=== PATIENT | female | born 1975 | race Caucasian/White ===

== ENCOUNTER 2024-03-18 05:20 | Emergency (ER) | payer OTHER, SELFPAY ==
[2024-03-18 05:23] VITALS: BP 159/96; PULSE 109; RESP 16; TEMP 36.6; O2SAT 97; BMI 29.2
--- NOTE | 2024-03-18 05:35 | CRLHL7_ITS ---
For Patients: As a result of the Century Cures Act, medical imaging exams and procedure reports are released immediately into your electronic medical record. You may view this report before your referring provider. If you have questions, please contact your health care provider. INDICATION: Abdominal pain, history of IBS. COMPARISON: None. TECHNIQUE: CT of the abdomen and pelvis with intravenous contrast. Multiplanar axial, coronal, and sagittal reformats were reconstructed. Contrast: 83 mL Isovue 370. FINDINGS: Lung bases: Normal. Liver: Normal. No mass. Gallbladder and bile ducts: Normal gallbladder. No bile duct dilation. Pancreas: Normal. Spleen: Normal. Adrenal glands: Normal. Kidneys: Normal parenchyma. No cyst or solid mass. No calculi. No urinary tract dilation. Urinary bladder: Normal. Pelvis: No cyst or mass. Vessels: Normal. Bowel: No dilated or inflamed small bowel. There is a severely large stool burden. There is focal short segment wall thickening and inflammation in the mid descending colon. There is not a large rectal stool ball. No pneumatosis. No mesenteric or portal venous gas. No free air. Lymph nodes: No adenopathy. Peritoneum: No ascites. Abdominal wall: No hernia. Bones: No fractures. No focal worrisome bone lesions. IMPRESSION: Very large stool burden. Focal short-segment colitis in the mid descending colon. No discrete mass seen, but the inflamed segment is relatively narrower caliber than the adjacent segments. Consider colonoscopy after appropriate stool management. Please note that all CT scans at this facility use dose modulation, iterative reconstruction, and/or weight-based dosing when appropriate to reduce radiation dose to as low as reasonably achievable. Dictated by Teri Jain MD @ 03/18/2024 6:25:17 AM (Electronically Signed)
--- NOTE | 2024-03-18 05:44 | ED_ITS ---
HPI - Abdominal Pain General Chief Complaint: Abdominal Pain Stated Complaint: lower abdominal pain Time Seen by Provider: 03/18/24 05:30 History of Present Illness HPI narrative: Patient is a 49-year-old woman who has history of irritable bowel syndrome who presents with 2-1/2 hours of severe diffuse abdominal pain. She feels abdominal distension. She has had no fevers no chills no night sweats. She did vomit in the parking lot. She has 10/10 pain which is dull. She has otherwise been dealing with intermittent abdominal pain for years but tonight the pain is more severe than previous. She has no blood in her stool no reflux symptoms no dysuria. Related Data Home Medications ?Medication ?Instructions ?Recorded ?Confirmed levothyroxine 25 mcg capsule 25 mcg PO DAILY 03/18/24 03/18/24 Allergies Allergy/AdvReac Type Severity Reaction Status Date / Time No Known Drug Allergies Allergy Verified 03/18/24 05:26 Review of Systems Status of ROS Reports: 10 or more systems reviewed and unremarkable except as noted in History and below PFSH PFSH Social History Non-prescribed substance use: denies use Exam Narrative: Exam Narrative: EXAM GENERAL: Patient appears acutely uncomfortable. EYES: No scleral icterus. LYMPH: No supraclavicular or cervical lymphadenopathy. SKIN: Visible skin seen during exam normal or with benign process only. EXT: No dependent lower extremity pedal edema. HEART: Regular rate and rhythm with no murmurs, rubs, or gallops. LUNGS: Clear to auscultation bilaterally with no crackles or wheezes. ABD: Mildly distended with hypoactive bowel sounds. PSYCH: Good eye contact, speech is not pressured. Const: Vital Signs, click to edit/add: Vital Signs - 24 hr 03/18/24 05:23 Temperature 97.8 F Pulse Rate [Left P ulse Oximeter] 109 H Respiratory Rate 16 Blood Pressure [Ri ght Upper Arm] 159/96 H Pulse Oximetry 97 Oxygen Delivery Me thod Room Air Course Course ED Course: Patient seen and examined. CT of the abdomen pelvis CBC CMP amylase UA pending. Vital Signs Vital signs: Initial Vital Signs Temperature 97.8 F 03/18/24 05:23 Temperature Source Temporal Artery Scan 03/18/24 05:23 Pulse Rate 109 H 03/18/24 05:23 Pulse Rhythm Regular 03/18/24 05:23 Respiratory Rate 16 03/18/24 05:23 Blood Pressure 159/96 H 03/18/24 05:23 Blood Pressure Mean 117 H 03/18/24 05:23 Blood Pressure Position Sitting 03/18/24 05:23 Pulse Oximetry 97 03/18/24 05:23 Oxygen Delivery Method Room Air 03/18/24 05:23 Vital Signs Temperature 97.8 F 03/18/24 05:23 Pulse Rate 109 H 03/18/24 05:23 Respiratory Rate 16 03/18/24 05:23 Blood Pressure 159/96 H 03/18/24 05:23 Pulse Oximetry 97 03/18/24 05:23 Oxygen Delivery Method Room Air 03/18/24 05:23 Temperature 97.8 F 03/18/24 05:23 Pulse Rate 109 H 03/18/24 05:23 Respiratory Rate 16 03/18/24 05:23 Blood Pressure 159/96 H 03/18/24 05:23 Pulse Oximetry 97 03/18/24 05:23 Oxygen Delivery Method Room Air 03/18/24 05:23 MDM - Abdominal Pain MDM Narrative Medical decision making narrative: Patient is a 49-year-old woman who presents with abdominal pain. Lab workup is unremarkable CT of the abdomen pelvis shows a huge amount of stool burden. Patient has a irritable bowel chronically. I did considered the differential diagnosis of bowel obstruction ileus gastroenteritis cholecystitis is appendicitis. She does have a short segment of inflammation in her colon I did recommend outpatient colonoscopy. We treating with magnesium citrate and primary care follow-up. Lab Data Labs: Lab Results 03/18/24 Range/Units 05:40 WBC 9.20 (4.50-11.00) K/uL RBC 4.72 (4.00-5.20) m/uL Hgb 15.4 (12.0-16.0) gm/dL Hct 44.4 (33.0-51.0) % MCV 94 (80-100) fL MCH 33 (26-34) pg MCHC 35 (32-36) gm/dL RDW Coeff of Odell 12.0 (11.5-15.5) % Plt Count 297 (140-440) K/uL Neut % (Auto) 58.2 (42.0-72.0) % Lymph % (Auto) 31.0 (20-44) % Sterling % (Auto) 7.9 (0.0-11.0) % Eos % (Auto) 2.2 (0.0-7.0) % Baso % (Auto) 0.4 (0.0-3.0) % Neut # (Auto) 5.35 (1.7-7.0) K/uL Lymph # (Auto) 2.85 (0.90-2.90) K/uL Sterling # (Auto) 0.70 (0.00-0.90) K/UL Eos # (Auto) 0.20 (0.00-0.50) K/uL Baso # (Auto) 0.04 (0.00-0.30) K/uL Abs Immat Gran (auto) 0.03 (0.00-0.30) K/uL Imm/Tot Granulo (auto) 0.3 % Sodium 137 (135-149) mmol/L Potassium 4.2 (3.6-5.1) mmol/L Chloride 107 (96-114) mmol/L Carbon Dioxide 19 L (20-32) mmol/L Anion Gap 11 (7-15) mEq/L BUN 13 (5-24) mg/dL Creatinine 0.7 (0.5-1.5) mg/dL Estimated Creat Clear 85.79 Estimated GFR 107 ml/min Glucose 136 H (60-115) mg/dL Calcium 9.2 (8.4-10.6) mg/dL Total Bilirubin 0.7 (0.1-1.5) mg/dL AST 33 (12-35) U/L ALT 29 (4-35) U/L Alkaline Phosphatase 90 (40-150) U/L Total Protein 8.0 (6.0-8.3) g/dL Albumin 4.7 (3.3-5.0) g/dL Amylase 83 (18-89) U/L Discharge Plan Discharge Clinical Impression: Constipation Patient Disposition: Home, Self-Care Condition: Stable Instructions: Constipation (ED) Additional Instructions: Magnesium citrate 10 oz bottle today repeat 10 oz bottle tomorrow if not impr gloria. Follow-up with your doctor to discuss colonoscopy. Activity Level: No Restrictions Discharge Diet: Regular Prescriptions: No Action levothyroxine 25 mcg capsule 25 mcg PO DAILY Follow Up/Referrals: Provider,Not a Local [Primary Care Provider] - Stand Alone Forms: [employer] Info Instructions
[2024-03-18 06:02] LABS: Basophils Absolute Auto 0.04 K/uL (0.00-0.30); Basophils Percent Auto 0.4 % (0.0-3.0); Eosinophils Percent Auto 2.2 % (0.0-7.0); Hematocrit 44.4 % (33.0-51.0); Hemoglobin* 15.4 gm/dL (12.0-16.0); Immature Granulocytes Abs Auto 0.03 K/uL (0.00-0.30); Immature Granulocytes Pct Auto 0.3 %; Lymphocytes Absolute Auto 2.85 K/uL (0.90-2.90); Mean Corpuscular HGB Conc 35 gm/dL (32-36); Mean Corpuscular Hemoglobin 33 pg (26-34); Mean Corpuscular Volume 94 fL (80-100); Monocytes Percent Auto 7.9 % (0.0-11.0); Neutrophils Absolute Auto 5.35 K/uL (1.7-7.0); Neutrophils Percent Auto 58.2 % (42.0-72.0); Platelet Count* 297 K/uL (140-440); Red Blood Count 4.72 m/uL (4.00-5.20)
[2024-03-18 06:13] LABS: Slide Review Reflex No
[2024-03-18 06:15] LABS: Albumin* 4.7 g/dL (3.3-5.0); Chloride* 107 mmol/L (96-114); Potassium* 4.2 mmol/L (3.6-5.1); Sodium* 137 mmol/L (135-149)
[2024-03-18 06:17] LABS: Amylase* 83 U/L (18-89)
[2024-03-18 06:18] LABS: Alanine Aminotransferase* 29 U/L (4-35); Alkaline Phosphatase* 90 U/L (40-150); Anion Gap 11 mEq/L (7-15); Aspartate Amino Transferase* 33 U/L (12-35); Bilirubin Total* 0.7 mg/dL (0.1-1.5); Blood Urea Nitrogen* 13 mg/dL (5-24); Calcium* 9.2 mg/dL (8.4-10.6); Carbon Dioxide* 19 mmol/L (20-32); Creatinine* 0.7 mg/dL (0.5-1.5); Est. Creatinine Clearance* 85.79; Estimated Glomerular Filt Rate 107 ml/min; Glucose* 136 mg/dL (60-115)
--- OUTSIDE RECORDS SUMMARY | 2024-03-18 06:29 | XMS_ITS | Clinical Summary ---
[facility] Address [address] [place] [address] Care Team Providers Care Toxics Program Officer Name Role Phone Self-Referral, Patient Primary Care Provider Source Comments You are receiving this document as you are listed as the primary care provider,follow-up provider, or the patient has been referred to you for consultation.This is in compliance with the Medicare and[facility] E[facility] Incentive [facility],which states Providers who transition their patient to another setting of careor provider of care or refers their patient to another provider of care shouldprovide summary care record for each transition of care or referral. [facility] Allergies No known active allergies Medications Medication Sig Dispensed Refills Start Date End Date Status levothyroxine (AKA SYNTHROID) 25 MCG tablet Take 1 tablet by mouth daily (every 24 hours). LW Addl Instr:Iindicated for: Hypothyroidism 90 3 01/19/2010 Active fexofenadine (AKA VERITO) 180 MG tablet Take 1 tablet by mouth daily as needed. LW Addl Instr:Indicated for: Allergies 90 3 01/19/2010 Active unknown medication Indications: PN: 12/07/2010 Active COMPOUNDED PRESCRIPTION LW Addl Instr:Atropine 0.2% + Estradioil 0.05% + Testosterone 0.05 % in Acid Mantle (1:1) Apply a fingertip amount to the affected area BID. 30 1 09/02/2010 Active Social History Tobacco Use Types Packs/Day Years Used Date Smoking Tobacco: Never Sex and Gender Information Value Date Recorded Sex Assigned at Not on file Gender Identity Not on file Sexual Orientation Not on file Last Filed Vital Signs Vital Sign Reading Time Taken Comments Blood Pressure 106/72 12/07/2010 11:30 AM [employer] Pulse 64 09/02/2010 10:56 AM [employer] Temperature - - Respiratory Rate 16 09/02/2010 10:56 AM [employer] Oxygen Saturation - - Inhaled Oxygen Concentration - - Weight - - Height - - Body Mass Index - - Plan of Treatment Health Maintenance Due Date Last Done Comments Cervical Cancer Screening Due 1977 Colon Cancer Screening Plan Due 1977 Hep C Screening (Preventive Services) 1977 HIV Screening (Preventive Services) 1993 Adult Preventive Visit 1995 HepB (1) 02/25/1996 Cholesterol 2022 COVID-19 Vaccine ( season) 2023 01/07/2021, 12/05/2020 Influenza (Season Ended) 2024 020, 08/01/2019, 07/26/2018, Additional history exists Zoster/Shingles (1 of 2) 2027 DTaP/Tdap/Td (6 - Tdap) 11/26/2029 11/26/19 20, 08/01/2017, 04/13/2013, Additional history exists HepA Aged Out No longer eligi ble based on patient's age to complete this topic Hib Aged Out No longer eligi ble based on patient's age to complete this topic IPV (Polio) Aged Out No longer eligi ble based on patient's age to complete this topic MCV4 Aged Out No longer eligi ble based on patient's age to complete this topic Pneumococcal Aged Out No longer eligi ble based on patient's age to complete this topic Care Teams Toxics Program Officer Relationship Specialty Start Date End Date Self-Referral, Patient, [place] [address] PCP - General 06/13/21
--- OUTSIDE RECORDS SUMMARY | 2024-03-18 06:30 | XMS_ITS | Referral Summary ---
Author Organization [place] Address [address] [place] [address] Care Team Providers [facility] Name Role Phone Shant Bae MD Unavailable Shant Bae MD Unavailable [phone] Maxine Greene PA-C Primary Care Provider [phone] Maxine Greene PA-C Unavailable [phone] Encounters Date Type Department Care Team Description 02/14/2024 Travel 02/14/2024 12:40 PM CDT Office Visit [facility] [place] [id number] [place] [phone] Evy Melendrez PA-C Acute maxillary sinusitis, recurrence not specified (Primary Dx) from Last 3 Months Allergies Active Allergy Reactions Criticality Noted Date Comments Bee Venom Anaphylaxis High 02/17/2017 Medications Medication Sig Dispensed Refills Start Date End Date Status glycopyrrolate (GLYCATE) 2 MG tablet TAKE 1 TO 2 TABLETS BY MOUTH DAILY NEEDED FOR SWEATING 01/16/2021 Active dicyclomine (BENTYL) 20 MG tabletIndications:Ir ritable bowel syndrome with diarrhea Take 1 tablet (20 mg) by mouth 4 times daily as needed (bloating) 60 tablet 1 04/06/2022 Active Additional Information Patient not taking.Reported on 02/14/2024 traZODone (DESYREL) 50 MG tabletIndications:In somnia, unspecified type Take 1-2 tablets (50-100 mg) by mouth At Bedtime 90 tablet 1 07/06/2023 Active Additional Information Patient not taking.Reported on 02/14/2024 levothyroxine (SYNTHROID/LEVOTHROI D) 25 MCG tabletIndications:Ot her specified hypothyroidism Take 1 tablet (25 mcg) by mouth daily 90 tablet 3 07/06/2023 Active amoxicillin-clavulan ate (AUGMENTIN) 875-125 MG tabletIndications:Ac southern ute maxillary sinusitis, recurrence not specified Take 1 tablet by mouth 2 times daily for 10 days 20 tablet 02/14/2024 4 Active Problems Patient Care Coordination No te Formatting of this note is d ifferent from the original. 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 Blood type: O pos GBS: DEMOGRAPHICS: Patient contact info: [facility] [place] [phone] (home) Telephone Information: Partner's name: REFERRING PROVIDER: 1) Primary OB Provider: Name: John Brown Ph: Fax: MATERNAL CARE TEAM: Patient Care Team Relationship Specialty Notifications Start End Monica Farnsworth APRN CNP PCP - General Nurse Practitioner - Family 05/18/18 [facility] [address] Monica Farnsworth APRN CNP Assigned PCP 05/19/17 [facility] [address] CARE PLAN: 1) OB visits: q week 2) Ultrasounds - q4 week 3) surveillance - 4) consultations obtained: A) Neonatology - By phone B) Anesthesia- By phone 5) Follow up with other care team members - 6) Ancillary studies - A) MRI-12/12 DELIVERY PLAN: 1) Planned mode of delivery/details of delivery - C/S with possible Hyst 2) Gestational age at delivery - 34+ weeks 3) Scheduled delivery date - 01/03 @ 7:30 4) Notifications in labor - NICU DESIGNER ARCHITECT ONC 5) Specimen collection in labor / at delivery - Last updated: December 14, 2019 by Aimee Leyva RN Problem Noted Date Diagnosed Date Coryza 01/25/2022 Acute sinusitis with symptoms > 10 days 01/26/20 Last Assessment & Plan: Bacterial infection unlikely. Rx Antibiotics to start at 10 d per current guidelines. Discussed pathophysiology Other headache syndrome 01/25/2022 Last Assessment & Plan: Frontal [place]EN[place] 6 d, treated with antihistamines and Nyquil. No cough, fever, coryza, other Sx. Children ill 2 weeks ago. Discussed. Bacterial cause unlikely, viral infection possible. Treat as URI. S/P section 01/04/2020 Eczema 02/17/2017 Allergic to bees 08/25/2016 Obsessive-compulsive disorder 09/29/2015 Hypothyroidism 01/16/2010 Reserved for concepts with i nsufficient information to code with codable children 03/01/2008 Keloid scar 02/16/2008 Asthma 01/27/2007 Lactose intolerance 10/13/2006 Heart murmur 10/13/2006 Overview: Overview: Echo: before 1998; pt can feel it; like a pause, then a skip .(about once/wk) momentary shortness of breath, no syncope or chest pain Irritable bowel syndrome 10/11/2006 Overview: Overview: 09/12 C'scope /c bx WNL; endomysial abies pending; Last Assessment & Plan: Dx: after college, w/u ess neg /x for lactose intolerance; c'scopy normal Trials of food removals didn't change the course On no meds ; Trigger is stress; nher syndrome has no warning signs; lactose tolerance is better than it used to be; 08/13: 6 mths of incr symptoms: freqency of attacks: q couple of days; abd cramping is severe; duration x hours ( like 48 hrs) P: colonoscopy, repeat labs; bentyl prn; may need GI f/u Dysplasia of cervix, low grade (CECIL 1) Overview: Hx of LSIL/CECIL 1 in 2009 NIL 2010 NIL 2012 NIL 2014 NIL, Neg HPV 07/18/19 NIL, Neg HPV. 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 12/20/2019 01/22/2020 Overview: Added automatically from request for surgery [id number] Complete placenta previa nos or without hemorrhage, unspecified trimester 09/21/20192019 Previous section 08/28/2019 Overview: Added automatically from request for surgery [id number] Previous delivery, antepartum condition or complication 07/18/2019 01/22/2020 AMA (advanced maternal age) multigravida 35+ 9 01/22/2020 History of pre-eclampsia in prior , currently 07/18/2019 01/22/2020 Hypothyroidism affecting 07/18/2019 01/22/2020 resulting from in vitro fertilization 07/18/2019 01/22/2020 Status post 09/30/20172017 Advanced maternal age, primigravida 03/22/2017 11/11/2017 Need for Tdap vaccination 02/17/2017 Bilateral low back pain with out sciatica, unspecified chronicity 11/18/2016 02/02/2017 Immunizations Name Administration Dates Next Due COVID-19 12+ () (Pfizer) 07/14/2023 DT (PEDS <7y) 10/03/1999 HepB 04/19/2014,02/22/2014 Influenza (IIV3) PF 08/25/2016,06/12/2015,2008 Influenza Vaccine >6 months,quad, PF 01/2023,08/01/2019,07/26/2018,2016 Influenza, seasonal, injectable, PF 08/25/2016 MMR 02/22/2014 Rabies Vaccine 07/21/2005,06/30/2005,06/23/2005 TD,PF 7+ (Tenivac) 10/03/1999 TDAP Vaccine (Adacel) 11/26/2019,08/01/2017 Td (Adult), Adsorbed 10/03/1999 Tdap (Adult) Unspecified Formulation 10/03/1999 Varicella 12/20/2018,04/19/2014,02/22/2014 Social History Tobacco Use Types Packs/Day Years Used Date Smoking Tobacco: Never Passive Smoke Exposure: Never Smokeless Tobacco: Never Tobacco Cessation:Counseling Given: Not Answered Alcohol Use Standard Drinks/Week Comments Yes 0 (1 standard drink = 0.6 oz pur e alcohol) Socially Social Connection and Isolat ion Panel [NHANES] Answer Date Recorded In a typical week, how many times do you talk on the phone with family, friends, or neighbors? More than three times a week 07/06/2023 How often do you get togethe r with friends or relatives? Once a week 07/06/2023 How often do you attend chur ch or cheondoism services? 1 to 4 times per year 07/06/2023 Do you belong to any clubs o r organizations such as orthodoxy groups, unions, fraternal or athletic groups, or school groups? Yes 07/06/2023 How often do you attend meet ings of the clubs or organizations you belong to? More than 4 times per year 07/06/2023 Are you , , di vorced, , never , or living with a partner? 07/06/2023 AUDIT-C Answer Date Recorded Q1: How often do you have a drink containing alc ohol? 2-4 times a month 07/06/2023 Q2: How many drinks containi ng alcohol do you have on a typical day when you are drinking? 1 or 2 07/06/2023 Q3: How often do you have si x or more drinks on one occasion? Never 07/06/2023 PHQ-2 Answer Date Recorded PHQ-2 Score 0 11/29/2022 [facility] - Occupational Stress Questionnaire Answer Date Recorded Do you feel stress - tense, restless, nervous, or anxious, or unable to sleep at night because your mind is troubled all the time - these days? Only a little 07/06/2023 Exercise Vital Sign Answer Date Recorde d On average, how many days pe r week do you engage in moderate to strenuous exercise (like a brisk walk)? 4 days Minutes of Exercise per Session Not on file 07/06/2023 [place] Depression Scale Answer Date Recorded [place] Depression Score 0 01/05/2020 Last EPDS Self Harm Result Not on file 01/04 Adolescent Education Answer Date Record ed Getting School Help Needed Not on file 06/24 Food Insecurity Answer Date Recorded Within the past 12 months, d id you worry that your food would run out before you got money to buy more? Patient refused 2022 Within the past 12 months, d id the food you bought just not last and you didn? t have money to get more? Patient refused 07/06/2023 Housing Stability Answer Date Recorded Do you have housing? Patient refused 07/06/2023 Are you worried about losing your housing? Patie nt refused 07/06/2023 Financial Resource Strain Answer Date R ecorded Within the past 12 months, h ave you or your family members you live with been unable to get utilities (heat, electricity) when it was really needed? Patient refused 023 Transportation Needs Answer Date Record ed Within the past 12 months, h as lack of transportation kept you from medical appointments, getting your medicines, non-medical meetings or appointments, work, or from getting things that you need? Patient refused 07/06/2023 Interpersonal Safety Answer Date Record ed Do you feel physically and e motionally safe where you currently live? Yes 07/06/2023 Within the past 12 months, h ave you been hit, slapped, kicked or otherwise physically hurt by someone? No 07/06/2023 Within the past 12 months, h ave you been humiliated or emotionally abused in other ways by your partner or ex-partner? No 07/06/2023 Sex and Gender Information Value Date Recorded Sex Assigned at Not on file Gender Identity Not on file Sexual Orientation Not on file Last Filed Vital Signs Vital Sign Reading Time Taken Comments Blood Pressure 140/84 02/14/2024 12:43 PM CDT Pulse 86 02/14/2024 12:43 PM CDT Temperature 37.1 ??C (98.8 ??F) 02/14/2024 12:43 PM C DT Respiratory Rate 17 07/06/2023 9:58 AM CDT Oxygen Saturation 96% 02/14/2024 12:43 PM CDT Inhaled Oxygen Concentration - - Weight 77.1 kg (170 lb) 02/14/2024 12:43 PM CDT Height 163.8 cm (5' 4.5) 02/14/2024 12:43 PM CD T Body Mass Index 28.73 02/14/2024 12:43 PM CDT Plan of Treatment Not on file Procedures Procedure Name Priority Date/Time Associated Diagnosis Comments COMPREHENSIVE METABOLIC PANEL Routine 07/14/2023 10:29 AM CDT Routine general medical examination at a health care facility TSH WITH FREE T4 REFLEX Routine 07/14/2023 10:29 AM CDT Routine general medical examination at a [facility] care facility LIPID REFLEX TO DIRECT LDL PANEL Routine 07/14/2023 10:29 AM CDT Routine general medical examination at a [facility] care facility Screening for lipid disorders MA SCREENING BILATERAL W/ GARRET Routine 06/10/2023 1:12 PM CDT Screening mammogram, encounter for HPV HIGH RISK TYPES DNA CERVICAL Routine 07/18/2019 9:40 AM CDT Screening for human papillomavirus PAP IMAGED THIN LAYER SCREEN Routine 07/18/2019 9:36 AM CDT Screening for malignant neoplasm of cervix HIV ANTIGEN ANTIBODY COMBO Routine 07/06/2019 10:22 AM CDT care, subsequent , unspecified trimester HEPATITIS C (HIM EXTERNAL RESULT) Routine 11/29/2016 from Last 3 Months or Most Recently Relevant to Health Maintenance Results * TSH with free T4 reflex (07/14/2023 10:29 AM CDT) TSH 2.59 0.30 - 4.20 uIU/mL 07/14/2023 7:53 PM CDT [facility] Blood BLOOD SPECIMEN / Unknown Venipuncture / Unknown 07/14/2023 10:29 AM CDT 07/14/2023 10:29 AM CDT Maxine Greene PA-C LAB - BLOOD ORDERABL ES [facility] Core Lab [address] [facility], [address] [place] [phone], [facility] [phone] * (ABNORMAL) Lipid panel reflex to direct LDL Fasting (07/14/2023 10:29 AM CDT) Pathologist [facility] Cholesterol 230(H) <200 mg/dL 07/14/2023 7:53 PM CDT [facility] Triglycerides 129 <150 mg/dL 07/14/2023 7:53 PM CDT [facility] Direct Measure HDL 65 >=50 mg/dL 07/14/2023 7:53 PM CDT [facility] LDL Cholesterol Calculated 139(H) <=100 mg/dL 07/14/2023 7:53 PM CDT [facility] Non HDL Cholesterol 165(H) <130 mg/dL 07/14/2023 7:53 PM CDT [facility] Blood BLOOD SPECIMEN / Unknown Venipuncture / Unknown 07/14/2023 10:29 AM CDT 07/14/2023 10:29 AM CDT Narrative [facility] - 07/14/2023 7:53 PM CDT Cholesterol Desirable: ??<200 mg/dL Triglycerides Normal: ??Less than 150 mg/dL Borderline High: ??150-199 mg/dL High: ??200-499 mg/dL Very High: ??Greater than or equal to 500 mg/dL Direct Measure HDL Female: ??Greater than or equal to 50 mg/dL Male: ??Greater than or equal to 40 mg/dL LDL Cholesterol Desirable: ??<100mg/dL Above Desirable: ??100-129 mg/dL Borderline High: ??130-159 mg/dL High: ??160-189 mg/dL Very High: ??>= 190 mg/dL Non HDL Cholesterol Desirable: ??130 mg/dL Above Desirable: ??130-159 mg/dL Borderline High: ??160-189 mg/dL High: ??190-219 mg/dL Very High: ??Greater than or equal to 220 mg/dL Maxine Greene PA-C LAB - BLOOD ORDERABL ES [facility] Core Lab [address] [facility], [address] [place] [address], [facility] [phone] * Comprehensive metabolic panel (BMP + Alb, Alk Phos, ALT, AST, Total. Bili, TP) (07/14/2023 10:29 AMCDT) Sodium 138 135 - 145 mmol/L 07/14/2023 7:53 PM CDT [facility] Comment:Reference intervals for this test were updated on 06/28/2023 to more accurately reflect our healthy population. There may be differences in the flagging of prior results with similar values performed with this method. Interpretation of those prior results can be made in the context of the updated reference intervals. Potassium 4.5 3.4 - 5.3 mmol/L 07/14/2023 7:53 PM CDT [facility] Carbon Dioxide (CO2) 23 22 - 29 mmol/L 07/14/2023 7:53 PM CDT [facility] Anion Gap 10 7 - 15 mmol/L 07/14/2023 7:53 PM CDT [facility] Urea Nitrogen 9.7 6.0 - 20.0 mg/dL 07/14/2023 7:53 PM CDT [facility] Creatinine 0.79 0.51 - 0.95 mg/dL 07/14/2023 7:53 PM CDT [facility] GFR Estimate >90 >60 mL/min/1. 73m2 07/14/2023 7:53 PM CDT [facility] Calcium 9.5 8.6 - 10.0 mg/dL 07/14/2023 7:53 PM CDT [facility] Chloride 105 98 - 107 mmol/L 07/14/2023 7:53 PM CDT [facility] Glucose 92 70 - 99 mg/dL 07/14/2023 7:53 PM CDT [facility] Alkaline Phosphatase 56 35 - 104 U/L 07/14/2023 7:53 PM CDT [facility] AST 25 0 - 45 U/L 07/14/2023 7:53 PM CDT [facility] Comment:Reference intervals for this test were updated on 03/14/2023 to more accurately reflect our healthy population. There may be differences in the flagging of prior results with similar values performed with this method. Interpretation of those prior results can be made in the context of the updated reference intervals. ALT 21 0 - 50 U/L 07/14/2023 7:53 PM CDT [facility] Comment:Reference intervals for this test were updated on 03/14/2023 to more accurately reflect our healthy population. There may be differences in the flagging of prior results with similar values performed with this method. Interpretation of those prior results can be made in the context of the updated reference intervals. Protein Total 7.7 6.4 - 8.3 g/dL 07/14/2023 7:53 PM CDT [facility] Albumin 4.4 3.5 - 5.2 g/dL 07/14/2023 7:53 PM CDT [facility] Bilirubin Total 0.6 <=1.2 mg/dL 07/14/2023 7:53 PM CDT [facility] Blood BLOOD SPECIMEN / Unknown Venipuncture / Unknown 07/14/2023 10:29 AM CDT 07/14/2023 10:29 AM CDT Maxine Greene PA-C LAB - BLOOD ORDERABL ES [facility] Core Lab [address] [facility], [address] [id number] [phone] * MA Screen Bilateral w/Garret (06/10/2023 1:12 PM CDT) Anatomical Region Laterality Modality Breast Bilateral Mammography Impressions 06/14/2023 1:57 PM CDT IMPRESSION: ACR BI-RADS Category 1: Negative RECOMMENDED FOLLOW-UP: Annual routine screening mammogram The results and recommendations of this examination will be communicated to the patient. Wendy North MD Narrative 06/14/2023 1:57 PM CDT BILATERAL FULL FIELD DIGITAL SCREENING MAMMOGRAM WITH TOMOSYNTHESIS Performed on: 06/10/23 Compared to: 01/05/2022 Technique: ??This study was evaluated with the assistance of Computer-Aided Detection. ??Breast Tomosynthesis was used in interpretation. Findings: The breasts are almost entirely fatty. ??There is no radiographic evidence of malignancy. Aung Mast PA-C IMG MAMMOGRAPHY [facility] * HPV High Risk Types DNA Cervical (07/18/2019 9:40 AM CDT) HPV Source SurePath 07/18/2019 9:36 AM CDT [facility] HPV 16 DNA Negative NEG^Nega tive 07/24/2019 3:57 PM CDT [facility] HPV 18 DNA Negative NEG^Nega tive 07/24/2019 3:57 PM CDT [facility] Other HR HPV Negative NEG^Nega tive 07/24/2019 3:57 PM CDT [facility] Final Diagnosis This patient's sample is negative for HPV DNA. 07/24/2019 3:57 PM CDT [facility] Comment: This test was developed and its performance characteristics determined by the [facility], Molecular Diagnostics Laboratory. It has not been cleared or approved by the FDA. The laboratory is regulated under CLIA as qualified to perform high-complexity testing. This test is used for clinical purposes. It should not be regarded as investigational or for research. (Note) METHODOLOGY: ??The [employer] zay [id number] system uses automated extraction, simultaneous amplification of HPV (L1 region) and beta-globin, ?? followed by ??real time detection of fluorescent labeled HPV and beta globin using specific oligonucleotide probes . The test specifically identifies types HPV 16 DNA and HPV 18 DNA while concurrently detecting the rest of the high risk types (31, 33, 35, 39, 45, 51, 52, 56, 58, 59, 66 or 68). COMMENTS: ??This test is not intended for use as a screening device for women under age 30 with normal cervical cytology. ??Results should be correlated with cytologic and histologic findings. Close clinical followup is recommended. Specimen Description Cervical Cells 07/18/2019 9:36 AM CDT [facility] Comment:[id number] Cervical Cells CERVIX UTERI STRUCTURE / Unknown 07/18/2019 9:40 AM CDT 07/18/2019 9:43 AM CDT John Brown MD LAB - BLOOD ORDERABL ES [facility] [address] [place] [address] [address] * Pap imaged thin layer screen with HPV - recommended age 30 - 65 years (select HPV order below) (07/18/2019 9:36 AM CDT) PAP NIL COPATH Maria Elena Report Patient Name: WENDY ORTIZ MR#: [id number] Specimen #: [id number] Collected: 07/18/2019 Received: 07/19/2019 Reported: 07/23/2019 09:22 Ordering Phy(s): JOHN BROWN For improved result formatting, select 'View Enhanced Report Format' under Linked Documents section. SPECIMEN/STAIN PROCESS: Pap imaged thin layer prep screening (Surepath, FocalPoint with guided screening) ? Pap-Cyto x 1, HPV ordered x 1 SOURCE: Cervical Pap imaged thin layer prep screening (Surepath, FocalPoint with guided screening) SPECIMEN ADEQUACY: Satisfactory for evaluation. -Transformation zone component absent. CYTOLOGIC INTERPRETATION: Negative for intraepithelial lesion or malignancy Electronically signed out by: ALFA Ferrera (ASCP) CLINICAL HISTORY: Papanicolaou Test Limitations: ??Cervical cytology is a screening test with limited sensitivity; regular screening is critical for cancer prevention; Pap tests are primarily effective for the diagnosis/preventi on of squamous cell carcinoma, not adenocarcinomas or other cancers. COLLECTION SITE: Client: ??[facility] Location: [place] ([place]) The technical component of this testing was completed at [facility], with the professional component performed at the [facility], [address] [place] [address] ([phone]) COPATH Cytologic material (specimen) 07/18/2019 9:36 AM CDT 07/19/2019 9:53 AM CDT John Brown MD LAB - [facility] L SPECIMEN COPATH * HIV Antigen Antibody Combo (07/06/2019 10:22 AM CDT) HIV Antigen Antibody Combo Nonreactive NR^Nonrea ctive 07/06/2019 8:19 PM CDT [facility] Comment:HIV-1 p24 Ag & HIV-1 /HIV-2 Ab Not Detected Blood specimen (specimen) 07/06/2019 10:22 AM CDT 07/06/2019 10:27 AM CDT John Brown MD LAB - BLOOD ORDERABL ES Performing Organization Address [facility] Co de Phone Number [facility] [address] [place] [address] * Hep C - HIM (11/29/2016) Hep C HIM See Scanned Document EXTERNAL LAB Comment:Non-Reactive 11/29/2016 Narrative EXTERNAL LAB - 11/29/2016 [facility] VIS[facility] NOTES/RESULTS FOR -02/15/15-02/21/[address] [place] [address] Provider Outside LAB - HIM EXTERNAL R ESULT EXTERNAL LAB External Lab from Last 3 Months or Most Recently Relevant to Health Maintenance Care Teams [facility] Relationship Specialty Start Date End Date Maxine Greene PA-C [address] [place] [phone] PCP - General Family Medicine 07/06/23 Shant Bae MD [address] [place] [address] Otolaryngology 11/29/22 Shant Bae MD [address] [place] [address] Assigned Surgical Provider 01/08/23 Maxine Greene PA-C [address] [place] [phone] Assigned PCP 07/09/23
--- OUTSIDE RECORDS SUMMARY | 2024-03-18 06:30 | XMS_ITS | Encounter Summary ---
Author Organization [place] Address [address] [place] [address] Care Team Providers Care Angledozer Operator Name Role Phone No Ref-Primary, Physician Primary Care Provider [facility] Primary Care Provide r Monica Farnsworth ROTOR BLADE INSTALLER PLUG CUTTER Primary Care Prov ider Monica Farnsworth ROTOR BLADE INSTALLER PLUG CUTTER Unavailable + Monica Farnsworth ROTOR BLADE INSTALLER PLUG CUTTER Unavailable + John Brown MD Unavailable [phone] Iron Doyle MD Unavailable [phone] Ale Nuñez MD Unavailable + Shant Bae MD Unavailable No Ref-Primary, Physician Primary Care Provider Shant Bae MD Unavailable Iron Doyle MD Unavailable [phone] Maxine Greene PA-C Primary Care Provider Maxine Greene PA-C Unavailable [phone] Encounter Details Date Type Department Care Team (Late st Contact Info) Description 09/29/2017 [facility] [place] [address] [place] [address] Alyx Thomas MD [address] [place] [address] [address] [place], [place] [id number] Social History Tobacco Use Types Packs/Day Years Used Date Smoking Tobacco: Never Smokeless Tobacco: Never Alcohol Use Standard Drinks/Week Comments Yes 0 (1 standard drink = 0.6 oz pur e alcohol) social Comments Yes Sex and Gender Information Value Date Recorded Sex Assigned at Not on file Gender Identity Not on file Sexual Orientation Not on file documented as of this encounter Plan of Treatment Not on file documented as of this encounter Visit Diagnoses Not on filedocumented in this encounter Additional Health Concerns Assessment Noted Time PHQ-9 Depression Total Score: 4 09/13/20 17 10:16 AM CALIBRATION CHECKER documented as of this encounter Care Teams Angledozer Operator Relationship Specialty Start Date End Date No Ref-Primary, Physician PCP - General 08/01/17 03/04/18 [facility] [place] [address] PCP - General 03/05/18 05/17/18 Monica Farnsworth APRN PLUG CUTTER [place] [address] PCP - General Nurse Practitioner - Family 05/18/18 01/03/23 Monica Farnsworth APRN PLUG CUTTER [address] [place] [address] PCP - Assigned PCP 05/19/17 12/05/18 No Ref-Primary, Physician PCP - General 01/04/23 07/05/23 Maxine Greene PA-C [address] [place] [phone] PCP - General Family Medicine 07/06/23 Monica Farnsworth APRN PLUG CUTTER [address] [facility] [place] [address] Assigned PCP 05/19/17 10/17/21 John Brown MD [address] [facility] [address] [place] [address] Assigned OBGYN Provider 07/25/20 08/22/21 [place] [address] [place], [place] [id number] Assigned PCP 01/31/22 04/16/22 Ale Nuñ[place] [address] [place] [address] Assigned PCP 04/17/22 02/25/23 Shant Bae MD [address] [place] [address] [id number] Otolaryngology 11/29/22 Shant Bae MD [address] [place] [address] Assigned Surgical Provider 01/08/23 [place] [address] [place], [place] [id number] Assigned PCP 02/26/23 07/08/23 Maxine Greene PA-C [address] [place] [address] Assigned PCP 07/09/23 documented as of this encounter
--- OUTSIDE RECORDS SUMMARY | 2024-03-18 06:30 | XMS_ITS | Encounter Summary ---
Author Organization [place] Address [address] [place] [address]. [place] [address] Care Team Providers Care Baggage Inspector Name Role Phone Monica Farnsworth OVEN LABORER DEVELOPMENT PLANNER Primary Care Prov ider Monica Farnsworth APRN DEVELOPMENT PLANNER Unavailable + John Brown MD Unavailable [phone] Iron Doyle MD Unavailable [phone] Ale Nuñez MD Unavailable + Shant Bae MD Unavailable No Ref-Primary, Physician Primary Care Provider Shant Bae MD Unavailable Iron Doyle MD Unavailable [phone] Maxine Greene PA-C Primary Care Provider [phone] Maxine Greene PA-C Unavailable [phone] Encounter Details Date Type Department Care Team (Late st Contact Info) Description 01/15/[address] [facility] [place] [address] [place] [address] Julia Perez, RN Placenta accreta in third trimester (Primary Dx) Social History Tobacco Use Types Packs/Day Years Used Date Smoking Tobacco: Never Smokeless Tobacco: Never Alcohol Use Standard Drinks/Week Comments Not Currently 0 (1 standard drink = 0.6 oz pur e alcohol) social PHQ-2 Answer Date Recorded PHQ-2 Score 0 10/11/2018 [place] Depression Scale Answer Date Recorded [place] Depression Score 0 01/05/2020 Last EPDS Self Harm Result Not on file 01/04 Sex and Gender Information Value Date Recorded Sex Assigned at Not on file Gender Identity Not on file Sexual Orientation Not on file COVID-19 Exposure Response Date Recorded In the last month, have you been in contact with someone who was confirmed or suspected to have Coronavirus / COVID-19? No / Unsure 01/04/2020 5:11 AM CDT documented as of this encounter Plan of Treatment Not on file documented as of this encounter Visit Diagnoses Diagnosis Placenta accreta in third trimester- Primary Retained placenta without hemorrhage, unspecified as to episode of care documented in this encounter Additional Health Concerns Assessment Noted Time PHQ-9 Depression Total Score: 0 11/12/19 18 8:03 AM HISTORIOGRAPHY PROFESSOR documented as of this encounter Care Teams Baggage Inspector Relationship Specialty Start Date End Date Monica Farnsworth APRN DEVELOPMENT PLANNER PCP - General Nurse Practitioner - Family 05/18/18 01/03/23 No Ref-Primary, Physician PCP - General 01/04/23 07/05/23 Maxine Greene PA-C [address] [place] [address] PCP - General Family Medicine 07/06/23 Monica Farnsworth APRN DEVELOPMENT PLANNER [address] [place] [address] Assigned PCP 05/19/17 10/17/21 John Brown MD [address] [place] [address] Assigned OBGYN Provider 07/25/20 08/22/21 [place] [address] [facility] [address] Assigned PCP 01/31/22 04/16/22 Ale Nuñez [place] [address] [facility] [place] [address] Assigned PCP 04/17/22 02/25/23 Shant Bae MD [address] [place] [address] Otolaryngology 11/29/22 Shant Bae MD [address] [place] [address] Assigned Surgical Provider 01/08/23 [place] [address] [facility] [place] [address] Assigned PCP 02/26/23 07/08/23 Maxine Greene PA-C [address] [facility] [place] [address] Assigned PCP 07/09/23 documented as of this encounter
--- OUTSIDE RECORDS SUMMARY | 2024-03-18 06:30 | XMS_ITS | Encounter Summary ---
Author Organization [place] Address [address] [place] [address] Care Team Providers Care Nut Tightener Name Role Phone Shant Bae MD Unavailable Shant Bae MD Unavailable [phone] Maxine Greene PA-C Primary Care Provider Maxine Greene PA-C Unavailable [phone] Reason for Visit * Reason Comments Urgent Care Sinus discomfort x 8 d. Encounter Details Date Type Department Care Team (Late st Contact Info) Description 02/14/2024 12:40 PM CDT Office Visit [facility] [place] [address] [place] [phone] Evy Melendrez PA-C [address] [place] [address] Acute maxillary sinusitis, recurrence not specified (Primary Dx) Social History Tobacco Use Types [...] 07/06/2023 How often do you attend chur or worship services? 1 to 4 times per year 07/06/2023 Do you belong to any clubs o r organizations such as restoration groups, unions, fraternal or athletic groups, or [...] Answer Date Recorded PHQ-2 Score 0 11/29/2022 [facility] - Occupational Stress [...] Exercise per Session Not on file 07/06/2023 [place] Depression Scale Answer Date Recorded [place] Depression Score 0 01/05/2020 Last EPDS Self [...] Are you worried about losing your housing? Yazmine nt refused 07/06/2023 Financial Resource Strain Answer [...] on file documented as of this encounter Last Filed Vital Signs Vital Sign Reading Time Taken Comments Blood Pressure 140/84 02/14/2024 12:43 PM CDT Pulse 86 02/14/2024 12:43 PM CDT Temperature 37.1 ??C (98.8 ??F) 02/14/2024 12:43 PM C DT Respiratory Rate - - Oxygen Saturation 96% 02/14/2024 12:43 PM CDT Inhaled Oxygen Concentration - - Weight 77.1 kg (170 lb) 02/14/2024 12:43 PM CDT Height 163.8 cm (5' 4.5) 02/14/2024 12:43 PM CD T Body Mass Index 28.73 02/14/2024 12:43 PM CDT documented in this encounter Patient Instructions * Attachments The following attachments cannot be sent through Care Everywhere. * Sinusitis: Acute (Italian) documented in this encounter Progress Notes * Evy Melendrez PA-C - 02/14/2024 12:40 PM CDT Assessment & Plan Acute maxillary sinusitis, recurrence not specified Acute problem. Ongoing symptoms for more than a week . On exam patient is in no acute distress. Given her history of recurrent sinusitis and exam findings Augmentin is prescribed today. Tylenol/Motrin recommended as needed for headache/pain. Advised to keep monitoring symptoms. Follow-up if any worsening symptoms. Patient agrees with the plan. - amoxicillin-clavulanate (AUGMENTIN) 875-125 MG tablet Dispense: 20 tablet; Refill: 0 Return in about 1 week (around 02/21/2024) for Symptoms failing to improve. Evy Melendrez PA-C [facility] is a 48 year old female who presents to clinic today for the following health issues: Chief Complaint Patient presents with Urgent Care Sinus discomfort x 8d. HPI Sinus problem Onset of symptoms was 8 days ago. Course of illness is worsening. Severity moderate Current and Associated symptoms: facial pain/pressure, headache, discolored nasal drainage, nasal congestion No ST, no fever, No cough Treatment measures tried include Tylenol/Ibuprofen. Predisposing factors include: Hx of chronic sinusitis Last year November 2022 patient had a bad bout of sinusitis that did not improve after Augmentin, cefdinir, prednisone. Eventually saw ENT, had cultures done (Culture revealed Moraxella Catarrhalis susceptible to Augmentin, ceftriaxone, Levaquin and Bactrim). Patient was on Levaquin for a month, symptoms finally were resolved. Last treated for sinus infection 4 months ago. Review of Systems Constitutional, HEENT, cardiovascular, pulmonary, GI, , musculoskeletal, neuro, skin, endocrine and psych systems are negative, except as otherwise noted. Objective BP (!) 140/84 Pulse 86 Temp 98.8 ??F (37.1 ??C) (Tympanic) Ht 1.638 m (5' 4.5) Wt 77.1 kg (170 lb) SpO2 96% BMI 28.73 kg/m?? Physical Exam GENERAL: alert and no distress HENT: ear canals and TM's normal, nose with boggy turbinates and thick drainage, maxillary sinuses are tender to percussion, mouth without ulcers or lesions, throat is moist and pink, uvula is midline RESP: lungs clear to auscultation - no rales, rhonchi or wheezes CV: regular rate and rhythm, normal S1 S2 MS: no gross musculoskeletal defects noted, no edema SKIN: no suspicious lesions or rashes documented in this encounter Plan of Treatment Not on file documented as of this encounter Visit Diagnoses Diagnosis Acute maxillary sinusitis, recurrence not specified- Primary documented in this encounter Additional Health Concerns Assessment Noted Time PHQ-9 Depression Total Score: 1 02/15/20 3:07 PM CDT documented as of this encounter Care Teams Nut Tightener Relationship Specialty Start Date End Date Maxine Greene PA-C [address] [place] [address] PCP - General Family Medicine 07/06/23 Shant Bae MD [address] [place] [address] Otolaryngology 11/29/22 Shant Bae MD [address] [place] [address] Assigned Surgical Provider 01/08/23 Maxine Greene PA-C [address] [place] [address] Assigned PCP 07/09/23 documented as of this encounter
--- OUTSIDE RECORDS SUMMARY | 2024-03-18 06:30 | XMS_ITS | Encounter Summary ---
Author Organization [place] Address [address] [place] [address] Care Team Providers Care Financial Institution President Name Role Phone Monica Farnsworth TENTS ASSEMBLER JEWEL FLAT SURFACER Primary Care Prov ider Monica Farnsworth TENTS ASSEMBLER JEWEL FLAT SURFACER Unavailable + John Brown MD Unavailable [phone] Iron Doyle MD Unavailable [phone] Ale Nuñez MD Unavailable + Shant Bae MD Unavailable No Ref-Primary, Physician Primary Care Provider Shant Bae MD Unavailable Iron Doyle MD Unavailable [phone] Maxine Greene PA-C Primary Care Provider [phone] Maxine Greene PA-C Unavailable [phone] Reason for Visit * Reason Onset Date Comments MyChart Communication 12/20/2018 Encounter Details Date Type Department Care Team (Late st Contact Info) Description 12/20/2018 [facility] [address] [facility], [address] [place] [address] Monica Farnsworth, TENTS ASSEMBLER JEWEL FLAT SURFACER [address] [place] [address] MyChart Communication Social History Tobacco Use Types Packs/Day Years Used Date Smoking Tobacco: Never Smokeless Tobacco: Never Alcohol Use Standard Drinks/Week Comments Yes 0 (1 standard drink = 0.6 oz pur e alcohol) social PHQ-2 Answer Date Recorded PHQ-2 Score 0 10/11/2018 Sex and Gender Information Value Date Recorded Sex Assigned at Not on file Gender Identity Not on file Sexual Orientation Not on file documented as of this encounter Miscellaneous Notes * Telephone Encounter - Monica Farnsworth APRN CNP - 12/20/2018 4:38 PM CDT It is not recommended to check titers after vaccination. Monica Farnsworth CNP * Telephone Encounter - Simran Nation RN - 12/20/2018 4:21 PM CDT Spoke with the Pt regarding below. She would like to have a titer redrawn at the 4 week rao just to be safe. She would feel most comfortable with route. If you feel this is appropriate, please order titer. Thank you. Simran Nation RN -- [facility] * Telephone Encounter - Monica Farnsworth APRN CNP - 12/20/2018 3:24 PM CDT I don't see anything that talks about there being a maximum interval between the shots. The minimuminterval is 4 wks. She is right, the second dose must given at least 4 wks after the first dose andno sooner. If adults have only had one dose they should receive a second dose. I hope this clarifies this. It might be best to call and speak with her about this. Monica Farnsworth CNP * Telephone Encounter - Simran Nation RN - 12/20/2018 1:52 PM CDT PCP: Please review below. I looked on the CDC's website and I dont see a lot about the time LIMITS of the second dose, just the minimum amount of time that needs to pass before dose 2 can be given. Simran Nation RN -- [facility] documented in this encounter Plan of Treatment Not on file documented as of this encounter Visit Diagnoses Not on filedocumented in this encounter Additional Health Concerns Assessment Noted Time PHQ-9 Depression Total Score: 0 11/12/19 8:03 AM STAFFING MGR documented as of this encounter Care Teams Financial Institution President Relationship Specialty Start Date End Date Monica Farnsworth APRN JEWEL FLAT SURFACER PCP - General Nurse Practitioner - Family 05/18/18 01/03/23 No Ref-Primary, Physician PCP - General 01/04/23 07/05/23 Maxine Greene PA-C [address] [place] [phone] PCP - General Family Medicine 07/06/23 Monica Farnsworth APRN JEWEL FLAT SURFACER [address] [place] [address] Assigned PCP 05/19/17 10/17/21 John Brown MD [address] [address] Assigned OBGYN Provider 07/25/20 08/22/21 [place] [address] [place], [place] [address] Assigned PCP 01/31/22 04/16/22 Ale Nuñ[place] [address] [place] [address] Assigned PCP 04/17/22 02/25/23 Shant Bae MD [address] [place] [address] Otolaryngology 11/29/22 Shant Bae MD [address] [place] [address] Assigned Surgical Provider 01/08/23 [place] [address] [place] [address] Assigned PCP 02/26/23 07/08/23 Maxine Greene PA-C [address] [place] [address] Assigned PCP 07/09/23 documented as of this encounter
--- OUTSIDE RECORDS SUMMARY | 2024-03-18 06:30 | XMS_ITS | Encounter Summary ---
Author Organization [place] Address [address] [place] [address] Care Team Providers Care Packager And Strapper Name Role Phone Monica Farnsworth RESPIRATORY CARE PRACTITIONER OFFICE SUPPORT SPECIALIST Primary Care Prov ider Monica Farnsworth APRN OFFICE SUPPORT SPECIALIST Unavailable + John Brown MD Unavailable [phone] Iron Doyle MD Unavailable [phone] Ale Nuñez MD Unavailable + Shant Bae MD Unavailable No Ref-Primary, Physician Primary Care Provider Shant Bae MD Unavailable Iron Doyle MD Unavailable [phone] Maxine Greene PA-C Primary Care Provider [phone] Maxine Greene PA-C Unavailable [phone] Reason for Visit * Reason Onset Date Comments MyChart Communication 10/24/2020 Lab questi on Encounter Details Date Type Department Care Team (Late st Contact Info) Description 10/24/2020 [facility] [address] [place] [address] John Brown MD [address] [facility] [address] [place] [address] MyChart Communication (Lab question) Social History Tobacco Use Types Packs/Day Years Used Date Smoking Tobacco: Never Smokeless Tobacco: Never Alcohol Use Standard Drinks/Week Comments Not Currently 0 (1 standard drink = 0.6 oz pur e alcohol) social PHQ-2 Answer Date Recorded PHQ-2 Score 0 02/15/2020 [place] Depression Scale Answer Date Recorded [place] Depression Score 0 01/05/2020 Last EPDS Self [...] have Coronavirus / COVID-19? No / Unsure 10/22/2020 4:00 PM FRENCH CORD BINDER documented as of this encounter Miscellaneous Notes * Telephone Encounter - John Brown MD - 10/24/2020 10:01 AM CST Advise Pt that her TSH has gone slightly up as she noted, but because it is still well in the normal range, her current Synthroid dose should be appropriate. However, she may need a repeat TSH at hernext annual exam, which she is due for. I would recommend a PCP do her exam who can be in a better p osition to manage her Synthroid dosing on a long-term basis, and can advise regarding checking her next level and advising on target TSH. CH CORD BINDER * Telephone Encounter - Julia Horne RN - 10/24/2020 8:15 AM CST Please see catia and advise. Pharmacy selected if refilling same dose. Julia Horne RN CH CORD BINDER documented in this encounter Plan of Treatment Not on file documented as of this encounter Visit Diagnoses Diagnosis Other specified hypothyroidism Hypothyroidism affecting in first trimester documented in this encounter Additional Health Concerns Assessment Noted Time PHQ-9 Depression Total Score: 1 02/15/20 20 3:07 PM CDT documented as of this encounter Care Teams Packager And Strapper Relationship Specialty Start Date End Date Monica Farnsworth APRN OFFICE SUPPORT SPECIALIST PCP - General Nurse Practitioner - Family 05/18/18 01/03/23 No Ref-Primary, Physician PCP - General 01/04/23 07/05/23 Maxine Greene PA-C [address] [place] [address] PCP - General Family Medicine 07/06/23 Monica Farnsworth APRN OFFICE SUPPORT SPECIALIST [address] [place] [address] Assigned PCP 05/19/17 10/17/21 John Brown MD [address] [address] Assigned OBGYN Provider 07/25/20 08/22/21 [place] [address] [place], [place] [address] Assigned PCP 01/31/22 04/16/22 Ale Nuñez [place] [address] [place], [place] [address] Assigned PCP 04/17/22 02/25/23 Shant Bae MD [address] [facility] [place] [id number] Otolaryngology 11/29/22 Shant Bae MD [address] [place] [address] Assigned Surgical Provider 01/08/23 [place] [address] [place] [address] Assigned PCP 02/26/23 07/08/23 Maxine Greene PA-C [address] [place] [address] Assigned PCP 07/09/23 documented as of this encounter
--- OUTSIDE RECORDS SUMMARY | 2024-03-18 06:30 | XMS_ITS | Encounter Summary ---
Author Organization [place] Address [address] [place] [address] Care Team Providers Care Worm Raiser Name Role Phone Monica Farnsworth FIELD ASSISTANT HEAD OF SALES PROMOTION Primary Care Prov ider Monica Farnsworth APRN HEAD OF SALES PROMOTION Unavailable + John Brown MD Unavailable [phone] Iron Doyle MD Unavailable [phone] Ale Nuñez MD Unavailable + Shant Bae MD Unavailable No Ref-Primary, Physician Primary Care Provider Shant Bae MD Unavailable Iron Doyle MD Unavailable [phone] Maxine Greene PA-C Primary Care Provider [phone] Maxine Greene PA-C Unavailable [phone] Encounter Details Date Type Department Care Team (Late st Contact Info) Description 10/16/2020 [facility] Advice [address] [place] [address] Elizabeth Prasad RN Social History Tobacco Use Types Packs/Day Years Used Date Smoking Tobacco: Never Smokeless Tobacco: Never Alcohol Use Standard Drinks/Week Comments Not Currently 0 (1 standard drink = 0.6 oz pur e alcohol) social PHQ-2 Answer Date Recorded PHQ-2 Score 0 02/15/2020 [place] Depression Scale Answer Date Recorded [place] Depression Score 0 01/05/2020 Last EPDS Self [...] have Coronavirus / COVID-19? No / Unsure 10/15/2020 12:17 PM SAP FUNCTIONAL ANALYST documented as of this encounter Plan of Treatment Not on file documented as of this encounter Visit Diagnoses Not on filedocumented in this encounter Additional Health Concerns Assessment Noted Time PHQ-9 Depression Total Score: 1 02/15/20 20 3:07 PM CDT documented as of this encounter Care Teams Worm Raiser Relationship Specialty Start Date End Date Monica Farnsworth APRN HEAD OF SALES PROMOTION PCP - General Nurse Practitioner - Family 05/18/18 01/03/23 No Ref-Primary, Physician PCP - General 01/04/23 07/05/23 Maxine Greene PANereydaC [address] [place] [phone] PCP - General Family Medicine 07/06/23 Monica Farnsworth APRN HEAD OF SALES PROMOTION [address] [place] [address] Assigned PCP 05/19/17 10/17/21 John Brown MD [address] [address] Assigned OBGYN Provider 07/25/20 08/22/21 [place] [address] [place] [address] Assigned PCP 01/31/22 04/16/22 Ale Nuñez [place] [address] [place] [address] Assigned PCP 04/17/22 02/25/23 Shant Bae MD [address] [place] [address] Otolaryngology 11/29/22 Shant Bae MD [address] [place] [address] Assigned Surgical Provider 01/08/23 [place] [address] [place] [address] Assigned PCP 02/26/23 07/08/23 Maxine Greene PA-C [address] [place] [address] Assigned PCP 07/09/23 documented as of this encounter
--- OUTSIDE RECORDS SUMMARY | 2024-03-18 06:30 | XMS_ITS | Encounter Summary ---
Author Organization [facility] Address [address] [place] [address] Care Team Providers Care Child Care Attendant Name Role Phone No Ref-Primary, Physician Primary Care Provider [facility] Primary Care Provide r Monica Farnsworth CRIPPLE CHASER MILK TREATER Primary Care Prov ider Monica Farnsworth CRIPPLE CHASER MILK TREATER Unavailable + Monica Farnsworth CRIPPLE CHASER MILK TREATER Unavailable + John Brown MD Unavailable [phone] Iron Doyle MD Unavailable [phone] Ale Nuñez MD Unavailable + Shant Bae MD Unavailable No Ref-Primary, Physician Primary Care Provider Shant Bae MD Unavailable Iron Doyle MD Unavailable [phone] Maxine Greene PA-C Primary Care Provider Maixne Greene PA-C Unavailable [phone] Encounter Details Date Type Department Care Team (Late st Contact Info) Description 10/06/2017 [facility] [place] [address] [place] [phone] Alyx Thomas MD [address] [facility] [address] [place], [place] [address] Social History Tobacco Use Types Packs/Day Years Used Date Smoking Tobacco: Never Smokeless Tobacco: Never Alcohol Use Standard Drinks/Week Comments Yes 0 (1 standard drink = 0.6 oz pur e alcohol) social Sex and Gender Information Value Date Recorded Sex Assigned at Not on file Gender Identity Not on file Sexual Orientation Not on file documented as of this encounter Plan of Treatment Not on file documented as of this encounter Visit Diagnoses Not on filedocumented in this encounter Additional Health Concerns Assessment Noted Time PHQ-9 Depression Total Score: 4 09/13/20 17 10:16 AM MASH TUB COOKER OPERATOR documented as of this encounter Care Teams Child Care Attendant Relationship Specialty Start Date End Date No Ref-Primary, Physician PCP - General 08/01/17 03/04/18 [facility] CHEMICAL DEPENDENC[place] [address] PCP - General 03/05/18 05/17/18 Monica Farnsworth APRN MILK TREATER CHEMICAL [place] [address] PCP - General Nurse Practitioner - Family 05/18/18 01/03/23 Monica Farnsworth APRN MILK TREATER [address] [place] [address] PCP - Assigned PCP 05/19/17 12/05/18 No Ref-Primary, Physician PCP - General 01/04/23 07/05/23 Maxine Greene PA-C [address] [place] [phone] PCP - General Family Medicine 07/06/23 Monica Farnsworth APRN MILK TREATER [address] [place] [address] Assigned PCP 05/19/17 10/17/21 John Brown MD [address] [facility] [address] [place], [place] [address] Assigned OBGYN Provider 07/25/20 08/22/21 [place] [address] [place], [place] [id number] Assigned PCP 01/31/22 04/16/22 Ale Nuñ[place] [address] [place] [address] Assigned PCP 04/17/22 02/25/23 Shant Bae MD [address] [place] [address] Otolaryngology 11/29/22 Shant Bae MD [address] [place] [address] Assigned Surgical Provider 01/08/23 [place] [address] [place], [place] [address] Assigned PCP 02/26/23 07/08/23 Maxine Greene PA-C [address] [place] [address] Assigned PCP 07/09/23 documented as of this encounter
--- OUTSIDE RECORDS SUMMARY | 2024-03-18 06:30 | XMS_ITS | Encounter Summary ---
Author Organization [facility] Address [address] [place] [address] Care Team Providers Care Spectroscopist Name Role Phone No Ref-Primary, Physician Primary Care Provider [facility] Primary Care Provide r Monica Farnsworth PHYSICIAN OFFICE ASSISTANT WINE SALES REPRESENTATIVE Primary Care Prov ider Monica Farnsworth PHYSICIAN OFFICE ASSISTANT WINE SALES REPRESENTATIVE Unavailable + Monica Farnsworth PHYSICIAN OFFICE ASSISTANT WINE SALES REPRESENTATIVE Unavailable + John Brown MD Unavailable Iron Doyle MD Unavailable [phone] Ale Nuñez MD Unavailable + Shant Bae MD Unavailable No Ref-Primary, Physician Primary Care Provider Shant Bae MD Unavailable Iron Doyle MD Unavailable [phone] Maxine Greene PA-C Primary Care Provider Maxine Greene PA-C Unavailable [phone] Encounter Details Date Type Department Care Team (Late st Contact Info) Description 09/20/2017 [facility] [place] [address] [place] [address] Alyx Thomas MD [address] [place] [address] 700 [place], [place] [id number] Social History Tobacco Use Types Packs/Day Years [...] encounter Miscellaneous Notes * Telephone Encounter - Reyna Goodwin RN - 09/21/2017 8:12 AM CST Appt scheduled 09/28, 1:30pm. Reyna Goodwin RN-BSN AND SALARY ADMINISTRATOR documented in this encounter Plan of Treatment Not on file documented as of this encounter Visit Diagnoses Not on filedocumented in this encounter Additional Health Concerns Assessment Noted Time PHQ-9 Depression Total Score: 4 09/13/20 17 10:16 AM WAGE AND SALARY ADMINISTRATOR documented as of this encounter Care Teams Spectroscopist Relationship Specialty Start Date End Date No Ref-Primary, Physician PCP - General 08/01/17 03/04/18 [facility] [address], [place] [phone] PCP - General 03/05/18 05/17/18 Monica Farnsworth APRN WINE SALES REPRESENTATIVE [address] [address] PCP - General Nurse Practitioner - Family 05/18/18 01/03/23 Monica Farnsworth APRN WINE SALES REPRESENTATIVE [address] [facility] [place] [address] PCP - Assigned PCP 05/19/17 12/05/18 No Ref-Primary, Physician PCP - General 01/04/23 07/05/23 Maxine Greene PA-C [address] [place] [address] PCP - General Family Medicine 07/06/23 Monica Farnsworth APRN WINE SALES REPRESENTATIVE [address] [facility] [place] [address] Assigned PCP 05/19/17 10/17/21 John Brown MD [address] [facility] [address] [place] [address] Assigned OBGYN Provider 07/25/20 08/22/21 [place] [address] [facility], [place] [address] Assigned PCP 01/31/22 04/16/22 Ale Nuñ[place] [address] [place], [place] [address] Assigned PCP 04/17/22 02/25/23 Shant Bae MD [address] [place], [place] [address] Otolaryngology 11/29/22 Shant Bae MD [address] [place] [address] Assigned Surgical Provider 01/08/23 [place] [address] [place] [address] Assigned PCP 02/26/23 07/08/23 Maxine Greene PA-C [address] [place] [address] Assigned PCP 07/09/23 documented as of this encounter
--- OUTSIDE RECORDS SUMMARY | 2024-03-18 06:30 | XMS_ITS | Encounter Summary ---
Author Organization [place] Address [address] [place] [address] Care Team Providers Care Parimutuel Ticket Cashier Name Role Phone No Ref-Primary, Physician Primary Care Provider [facility] Primary Care Provide r Monica Farnsworth CERAMIC TILER SPINNERET PERSON Primary Care Prov ider Monica Farnsworth CERAMIC TILER SPINNERET PERSON Unavailable + Monica Farnsworth CERAMIC TILER SPINNERET PERSON Unavailable + John Brown MD Unavailable [phone] Iron Doyle MD Unavailable [phone] Ale Nuñez MD Unavailable + Shant Bae MD Unavailable No Ref-Primary, Physician Primary Care Provider Shant Bae MD Unavailable [phone] Iron Doyle MD Unavailable [phone] Maxine Greene PA-C Primary Care Provider Maxine Greene PA-C Unavailable [phone] Encounter Details Date Type Department Care Team (Late st Contact Info) Description 10/14/2017 [facility] [place] [address] [place] [phone] Alyx Thomas MD [address] [facility] 700 [place], [place] [address] Social History Tobacco Use Types Packs/Day Years [...] Total Score: 4 09/13/20 17 10:16 AM OBJECTS CONSERVATOR documented as of this encounter Care Teams Parimutuel Ticket Cashier Relationship Specialty Start Date End Date No Ref-Primary, Physician PCP - General 08/01/17 03/04/18 [facility] [place] [address] PCP - General 03/05/18 05/17/18 Monica Farnsworth APRN SPINNERET PERSON [place] [address] PCP - General Nurse Practitioner - Family 05/18/18 01/03/23 Monica Farnsworth APRN SPINNERET PERSON [address] [place] [address] PCP - Assigned PCP 05/19/17 12/05/18 No Ref-Primary, Physician PCP - General 01/04/23 07/05/23 Maxine Greene PA-C [address] [place] [phone] PCP - General Family Medicine 07/06/23 Monica Farnsworth APRN SPINNERET PERSON [address] [place] [address] Assigned PCP 05/19/17 10/17/21 John Brown MD [address] [facility] [address] [place], [place] [address] Assigned OBGYN Provider 07/25/20 08/22/21 [place] [address] [place], [place] [address] Assigned PCP 01/31/22 04/16/22 Ale Nuñ[place] [address] [place] [address] Assigned PCP 04/17/22 02/25/23 Shant Bae MD [address]341 [place] [address] Otolaryngology 11/29/22 Shant Bae MD [address] [place] [address] Assigned Surgical Provider 01/08/23 [place] [address] [place], [place] [address] Assigned PCP 02/26/23 07/08/23 Maxine Greene PA-C [address] [place] [address] Assigned PCP 07/09/23 documented as of this encounter
--- OUTSIDE RECORDS SUMMARY | 2024-03-18 06:30 | XMS_ITS | Encounter Summary ---
Author Organization [facility] Address [address] [place] [address] Care Team Providers Care Special Education Science Teacher Name Role Phone Monica Farnsworth DRESS CAP MAKER ASSISTED LIVING DIRECTOR Primary Care Prov ider Monica Farnsworth APRN ASSISTED LIVING DIRECTOR Unavailable + John Brown MD Unavailable [phone] Iron Doyle MD Unavailable [phone] Ale Nuñez MD Unavailable + Shant Bae MD Unavailable No Ref-Primary, Physician Primary Care Provider Shant Bae MD Unavailable Iron Doyle MD Unavailable [phone] Maxine Greene PA-C Primary Care Provider Maxine Greene PA-C Unavailable [phone] Encounter Details Date Type Department Care Team (Late st Contact Info) Description 12/31/[address] [facility] [address] [place] [address], [address] [place] [address] Wendy Sosa CMA Social History Tobacco Use Types Packs/Day Years Used Date Smoking Tobacco: Never Smokeless Tobacco: Never Alcohol Use Standard Drinks/Week Comments Not Currently 0 (1 standard drink = 0.6 oz pur e alcohol) social PHQ-2 Answer Date Recorded PHQ-2 Score 0 10/11/2018 Comments Yes Sex and Gender Information Value Date Recorded Sex Assigned at Not on file Gender Identity Not on file Sexual Orientation Not on file COVID-19 Exposure Response Date Recorded In the last month, have you been in contact with someone who was confirmed or suspected to have Coronavirus / COVID-19? No / Unsure 01/02/2020 8:55 AM CDT documented as of this encounter Plan of Treatment Not on file documented as of this encounter Visit Diagnoses Not on filedocumented in this encounter Additional Health Concerns Assessment Noted Time PHQ-9 Depression Total Score: 0 11/12/19 18 8:03 AM UTILITY BAG ASSEMBLER documented as of this encounter Care Teams Special Education Science Teacher Relationship Specialty Start Date End Date Monica Farnsworth APRN ASSISTED LIVING DIRECTOR PCP - General Nurse Practitioner - Family 05/18/18 01/03/23 No Ref-Primary, Physician PCP - General 01/04/23 07/05/23 Maxine Greene PA-C [address] [place] [phone] PCP - General Family Medicine 07/06/23 Monica Farnsworth APRN ASSISTED LIVING DIRECTOR [address] [place] [address] Assigned PCP 05/19/17 10/17/21 John Brown MD [address] [facility] 100 [place] [address] Assigned OBGYN Provider 07/25/20 08/22/21 [place] [address] [place], [place] [address] Assigned PCP 01/31/22 04/16/22 Ale Nuñ[place] [address] [place] [address] Assigned PCP 04/17/22 02/25/23 Shant Bae MD [address]341 [place] [address] Otolaryngology 11/29/22 Shant Bae MD [address] [place] [address] Assigned Surgical Provider 01/08/23 [place] [address] [place] [address] Assigned PCP 02/26/23 07/08/23 Maxine Greene PA-C [address] [place] [address] Assigned PCP 07/09/23 documented as of this encounter
--- OUTSIDE RECORDS SUMMARY | 2024-03-18 06:30 | XMS_ITS | Encounter Summary ---
Author Organization [facility] Address [address] [place] [address] Care Team Providers Care Military Science Teacher Name Role Phone Monica Farnsworth FIELD PROPERTY LOSS SPECIALIST LOAN REVIEW OFFICER Primary Care Prov ider Monica Farnsworth APRN LOAN REVIEW OFFICER Unavailable + John Brown MD Unavailable [phone] Iron Doyle MD Unavailable [phone] Ale Nuñez MD Unavailable + Shant Bae MD Unavailable No Ref-Primary, Physician Primary Care Provider Shant Bae MD Unavailable Iron Doyle MD Unavailable [phone] Maxine Greene PA-C Primary Care Provider [phone] Maxine Greene PA-C Unavailable [phone] Reason for Visit * Reason Comments Genetic Counseling AMA Ultrasound AMA Encounter Details Date Type Department Care Team (Late Contact Info) Description 09/18/2019 PRE VISIT [facility] [place] [address] [facility] [address] [place] [address] Korin Dockery, RN Genetic Counseling (AMA); Ultrasound (AMA) Social History Tobacco Use Types Packs/Day Years [...] Total Score: 0 11/12/19 18 8:03 AM BORING MACHINE SET UP OPERATOR documented as of this encounter Care Teams Military Science Teacher Relationship Specialty Start Date End Date Monica Farnsworth APRN LOAN REVIEW OFFICER PCP - General Nurse Practitioner - Family 05/18/18 01/03/23 No Ref-Primary, Physician PCP - General 01/04/23 07/05/23 Maxine Greene PA-C [address] [place] [address] PCP - General Family Medicine 07/06/23 Monica Farnsworth APRN LOAN REVIEW OFFICER [address] [place] [address] Assigned PCP 05/19/17 10/17/21 John Brown MD [address] [place] [address] Assigned OBGYN Provider 07/25/20 08/22/21 [place] [address] [place] [address] Assigned PCP 01/31/22 04/16/22 Ale Nuñ[place] [address] [place] [address] Assigned PCP 04/17/22 02/25/23 Shant Bae MD [address] [place] [address] MD Otolaryngology 11/29/22 Shant Bae MD [address] [place] [address] Assigned Surgical Provider 01/08/23 [place] [address] [place] [address] Assigned PCP 02/26/23 07/08/23 Maxine Greene PA-C [address] [place] [address] Assigned PCP 07/09/23 documented as of this encounter
--- OUTSIDE RECORDS SUMMARY | 2024-03-18 06:30 | XMS_ITS | Clinical Summary ---
Author Organization [place] Address [address] [place] [address] Care Team Providers Care Tie Bucker Name Role Phone Shant Bae MD Unavailable [phone] Shant Bae MD Unavailable Maxine Greene PA-C Primary Care Provider [phone] Maxine Greene PA-C Unavailable [phone] Allergies Active Allergy Reactions Criticality Noted Date [...] Active amoxicillin-clavulan ate (AUGMENTIN) 875-125 MG tabletIndications:Ac chris maxillary sinusitis, recurrence not specified Take 1 [...] O pos GBS: DEMOGRAPHICS: Patient contact info: [address] [facility] [phone] (home) Telephone Information: Partner's name: REFERRING PROVIDER: 1) Primary OB Provider: Name: John Brown Ph: Fax: MATERNAL CARE TEAM: Patient Care Team Relationship Specialty Notifications Start End Monica Farnsworth APRN CROSS ROLLER PCP - General Nurse Practitioner - Family 05/18/18 [facility] [address] Monica Farnsworth APRN CROSS ROLLER Assigned PCP 05/19/[address] [address] CARE PLAN: 1) OB visits: q week [...] 7:30 4) Notifications in labor - NICU FAST BRIM POUNCER ONC 5) Specimen collection in labor / at delivery - Last updated: December 14, 2019 by Aimee Leyva RN Problem Noted Date Diagnosed Date Coryza 01/25/2022 Acute sinusitis with symptoms > 10 days 01/26/20 22 Last Assessment & Plan: Bacterial infection unlikely. [...] Hx of LSIL/CECIL 1 in 2009 NIL 2011 NIL 2013 NIL 2014 NIL, Neg HPV 07/18/19 NIL, Neg HPV. 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 07/18/2019 01/22/2020 Status post 09/30/20172017 Advanced maternal age, primigravida 03/22/2017 11/11/2017 Need for Tdap vaccination 02/17/2017 Bilateral low back pain with out sciatica, unspecified chronicity 11/18/2016 02/02/2017 Encounters Date Type Department Care Team Description 02/14/2024 12:40 PM CDT Office Visit [facility] [place] [id number] [place] [phone] Evy Melendrez PA-C Acute maxillary sinusitis, recurrence not specified (Primary Dx) 02/14/2024 Travel from Last 3 Months Immunizations Name Administration Dates Next Due COVID-19 12+ () (Pfizer) 07/14/2023 DT (PEDS <7y) 10/03/1999 HepB 04/19/2014,02/22/2014 Influenza (IIV3) PF 08/25/2016,06/12/2015,2008 Influenza Vaccine >6 months,quad, PF 01/2023,08/01/2019,07/26/2018,2016 Influenza, seasonal, injectable, PF 08/25/2016 MMR 02/22/2014 Rabies Vaccine 07/21/2005,06/30/2005,06/23/2005 TD,PF 7+ (Tenivac) 10/03/1999 TDAP Vaccine (Adacel) 11/26/2019,08/01/2017 Td (Adult), Adsorbed 10/03/1999 Tdap (Adult) Unspecified Formulation 10/03/1999 Varicella 12/20/2018,04/19/2014,02/22/2014 Family History Medical History Relation Comments Hypertension Maternal Grandmother GERD Mother Hyperlipidemia Mother Lung Cancer Paternal Grandmother smoker Depression Sister Relation Status Comments Father Alive Maternal Grandfather Maternal Grandmother Mother Alive Paternal Grandmother Paternal Half-Sister 1 Alive Paternal Half-Sister 2 Alive Sister Alive Social History Tobacco Use Types Packs/Day Years [...] often do you attend chur ch or bahai services? 1 to 4 times per year 07/06/2023 Do you belong to any clubs o r organizations such as yarsani groups, unions, fraternal or athletic groups, or [...] Answer Date Recorded PHQ-2 Score 0 11/29/2022 [facility] - Occupational Stress [...] Exercise per Session Not on file 07/06/2023 [place] Depression Scale Answer Date Recorded [place] Depression Score 0 01/05/2020 Last EPDS Self [...] 02/14/2024 12:43 PM CDT Plan of Treatment Health Maintenance Due Date Last Done Comments CT COLONOGRAPHY 1977 FIT 1977 FLEX SIG 1977 sDNA (Cologuard) 1977 COLONOSCOPY 1987 COLORECTAL CANCER SCREENING 1987 HEPATITIS B IMMUNIZATION (3 of 3 - 19+ 3-dose series) 08/25/2014 04/19/2014, 02/22/2014 ASTHMA ACTION PLAN 11/30/2018 11/30/2017, 11/30/2017 PHQ-2 (once per calendar year) 2023 11/29/2022, 04/06/2022, 01/25/2022, Additional history exists ASTHMA CONTROL TEST 01/05/2024 07/06/2023, 11/29/2022, 01/25/2022, Additional history exists ANNUAL REVIEW OF HM ORDERS 07/06/202407/06, 01/25/2022, 01/25/2022 YEARLY PREVENTIVE VISIT 07/06/2024 07/06/20, 04/06/2022, 06/12/2015, Additional history exists TSH W/FREE T4 REFLEX 07/14/2024 07/14/2023, 04/06/2022, 04/20/2021, Additional history exists HPV TEST 07/18/2024 07/18/2019, 04/19/2014 PAP 07/18/2024 07/18/2019, 07/1 05/2014, 04/19/2014 MAMMO SCREENING 06/10/2025 06/10/2023, 01/05/2022 GLUCOSE 07/14/2026 07/14/2023, 0701/2022, 01/04/2020 ADVANCE CARE PLANNING 04/06/2027 04/06/2022 LIPID 07/14/2028 07/14/2023, 04/06/2022 DTAP/TDAP/TD IMMUNIZATION (4 - Td or Tdap) 11/26/2029 11/26/2019, 08/01/2017, 10/03/1999, Additional history exists HEPATITIS C SCREENING Completed 11/29/2016, 015 HIV SCREENING Completed 07/06/2019, 02/17/2017 INFLUENZA VACCINE Completed 07/06/2023, , 07/26/2021, Additional history exists COVID-19 Vaccine Completed 07/14/2023, 07/2022, 08/29/2021, Additional history exists HPV IMMUNIZATION Aged Out No longer e ligible based on patient's age to complete this topic IPV IMMUNIZATION Aged Out No longer e ligible based on patient's age to complete this topic MENINGITIS IMMUNIZATION Aged Out No l onger eligible based on patient's age to complete this topic Pneumococcal Vaccine: Pediatrics (0 to 5 Years) and At-Risk Patients (6 to 64 Years) Discontinued RSV MONOCLONAL ANTIBODY Aged Out No l onger eligible based on patient's age to complete this topic Procedures Procedure Name Priority Date/Time Associated Diagnosis Comments COMPREHENSIVE METABOLIC PANEL Routine 07/14/2023 10:29 AM CDT Routine general medical examination at a health care facility TSH WITH FREE T4 REFLEX Routine 07/14/2023 10:29 AM CDT Routine general medical examination at a health care facility LIPID REFLEX TO DIRECT LDL PANEL Routine 07/14/2023 10:29 AM CDT Routine general medical examination at a health care facility Screening for lipid disorders MA [...] LAB - BLOOD ORDERABL ES [facility] [address] [facility], [address] [place] [address], [facility] [phone] * (ABNORMAL) Lipid panel reflex to direct LDL Fasting (07/14/2023 10:29 AM CDT) Cholesterol 230(H) <200 mg/dL 07/14/2023 7:53 PM [...] LAB - BLOOD ORDERABL ES [facility] [address] [facility], [address] [place] [address], [facility] [phone] * Comprehensive metabolic panel (BMP + Alb, Alk Phos, ALT, AST, Total. Bili, TP) (07/14/2023 10:29 AMCDT) [facility] [address] Sodium 138 135 - 145 mmol/L 07/14/2023 [...] LAB - BLOOD ORDERABL ES [facility] [address] [facility] [address] [facility], [address] [place] [address], [facility] [phone] * MA Screen Bilateral w/Garret (06/10/2023 1:12 [...] of malignancy. Aung Mast PA-C IMG MAMMOGRAPHY ORDE ATUL * HPV High Risk Types DNA Cervical (07/18/2019 9:40 AM CDT) HPV Source [facility] 07/18/2019 9:36 AM CDT [facility] HPV 16 DNA Negative NEG^Nega tive 07/24/2019 3:57 PM CDT [facility] HPV 18 DNA Negative NEG^Nega tive 07/24/2019 3:57 PM CDT [facility] Other HR HPV Negative NEG^Nega tive 07/24/2019 3:57 PM CDT [facility] Final Diagnosis This patient's sample is negative for HPV DNA. 07/24/2019 3:57 PM CDT [facility] Comment: This test was developed and its performance characteristics determined by the [facility]. It has not been [...] Description Cervical Cells 07/18/2019 9:36 AM CDT [facility] Comment:[id number] Cervical Cells CERVIX UTERI STRUCTURE / Unknown 07/18/2019 9:40 AM CDT 07/18/2019 9:43 AM CDT John Brown MD LAB - BLOOD ORDERABL ES [facility] [address] [place], [place] [address] [place], [place] [id number] * Pap imaged thin layer screen with HPV - recommended age 30 - 65 years (select HPV order below) (07/18/2019 9:36 AM CDT) PAP NIL COPATH Maria Elena Report Patient Name: WENDY ORTIZ MR#: [id number] Specimen #: [id number] Collected: 07/18/2019 Received: 07/19/2019 Reported: 07/23/2019 09:22 [...] adenocarcinomas or other cancers. COLLECTION SITE: Client: ??[facility] Location: [facility] (R) The technical component of this testing was completed at the [facility], with the professional component performed at the [facility], [address] [place] [phone] ([phone]) COPATH Cytologic material (specimen) 07/18/2019 9:36 AM CDT 07/19/2019 9:53 AM CDT John Brown MD LAB - OPTIME CLINICA L SPECIMEN Performing Organization Address City/[facility]/ZIP Co de Phone Number COPATH * HIV Antigen Antibody Combo (07/06/2019 10:22 AM CDT) HIV Antigen Antibody Combo Nonreactive NR^Nonrea ctive 07/06/2019 8:19 PM CDT [facility] Comment:HIV-1 p24 Ag & HIV-1 /HIV-2 Ab Not Detected Blood specimen (specimen) 07/06/2019 10:22 AM CDT 07/06/2019 10:27 AM CDT John Brown MD LAB - BLOOD ORDERABL ES Performing Organization Address City/[facility]/ZIP Co de Phone Number [facility] [address] [place] [address] * Hep C - HIM (11/29/2016) Hep C HIM See Scanned Document EXTERNAL LAB Comment:Non-Reactive 11/29/2016 Narrative EXTERNAL LAB - 11/29/2016 [facility] VIS[facility] NOTES/RESULTS FOR -02/15/15-02/21/17 [facility] [address] [place] [address] Provider Outside LAB - HIM EXTERNAL R ESULT EXTERNAL LAB External Lab from Last 3 Months or Most Recently Relevant to Health Maintenance Care Teams Tie Bucker Relationship Specialty Start Date End Date Maxine Greene PA-C [address] [place] [phone] PCP - General Family Medicine 07/06/23 Shant Bae MD [address] [place], [place] [address] Otolaryngology 11/29/22 Shant Bae MD [address] [place], [place] [address] Assigned Surgical Provider 01/08/23 Maxine Greene PA-C [address] [place] [phone] Assigned PCP 07/09/23
--- OUTSIDE RECORDS SUMMARY | 2024-03-18 06:30 | XMS_ITS | Encounter Summary ---
Author Organization [place] Address [address] [place] [address] Care Team Providers Care Human Resources Benefits Manager Name Role Phone Monica Farnsworth APRN [facility] Primary Care Prov ider Ale Nuñez MD Unavailable + Shant Bae MD Unavailable [phone] No Ref-Primary, Physician Primary Care Provider Shant Bae MD Unavailable Iron Doyle MD Unavailable [phone] Maxine Greene PA-C Primary Care Provider Maxine Greene PA-C Unavailable [phone] Reason for Visit * Reason Onset Date Comments MyChart Communication 06/14/2022 update Encounter Details Date Type Department Care Team (Latest Contact Info) Description 06/14/2022 MyC Medical Advice [address] [address] Ale Nuñez MD PRIMARY ENT [address] [facility] [address] [id number] MyChart Communication (update) Social History Tobacco Use Types Packs/Day Years Used Date Smoking Tobacco: Never Smokeless Tobacco: Never Alcohol Use Standard Drinks/Week Comments Yes 0 (1 standard drink = 0.6 oz pur e alcohol) Socially Social Connection and Isolation Panel [NHANES] A nswer Date Recorded In a typical week, how many times do you talk on the phone with family, friends, or neighbors? Once a week 04/06/20 How often do you get togethe r with friends or relatives? Once a week 04/06/2022 How often do you attend [facility] or christian services? 1 to 4 times per year 04/06/2022 Do you belong to any clubs o r organizations such as religion groups, unions, fraternal or athletic groups, or school groups? No 04/06/2022 Attends Club or Organization Meetings Not on eyal e 04/06/2022 Are you , , di vorced, , never , or living with a partner? 04/06/2022 AUDIT-C Answer Date Recorded Q1: How often do you have a drink containing alc ohol? 2-4 times a month 04/06/2022 Q2: How many drinks containi ng alcohol do you have on a typical day when you are drinking? 1 or 2 04/06/2022 Q3: How often do you have si x or more drinks on one occasion? Never 04/06/2022 Overall Financial Resource Strain (CARDIA) Answe r Date Recorded How hard is it for you to pa y for the very basics like food, housing, medical care, and heating? Not hard at all 04/06/2022 PHQ-2 Answer Date Recorded PHQ-2 Score 0 04/06/2022 [facility]at ional Health - Occupational Stress Questionnaire Answer Date Recorded Do you feel stress - tense, restless, nervous, or anxious, or unable to sleep at night because your mind is troubled all the time - these days? To some extent 04/06/2022 Exercise Vital Sign Answer Date Recorde d On average, how many days pe r week do you engage in moderate to strenuous exercise (like a brisk walk)? 3 days 04/06/2022 On average, how many minutes do you engage in exercise at this level? 50 min 04/06/2022 Hunger Vital Sign Answer Date Recorded Within the past 12 months, y ou worried that your food would run out before you got the money to buy more. Never true 04/06/20 22 Within the past 12 months, t he food you bought just didn't last and you didn't have money to get more. Never true 04/06/2022 PRAPARE - Transportation Answer Date Re corded In the past 12 months, has l ack of transportation kept you from medical appointments or from getting medications? No 01/2022 In the past 12 months, has l ack of transportation kept you from meetings, work, or from getting things needed for daily living? No 04/06/2022 Housing Stability Vital Sign Answer David e Recorded In the last 12 months, was t here a time when you were not able to pay the mortgage or rent on time? No 04/06/2022 In the last 12 months, how many places have you lived? 1 04/06/2022 In the last 12 months, was t here a time when you did not have a steady place to sleep or slept in a fpc (including now)? No 04/06/2022 [place] Depression Scale Answer Date Recorded [place] Depression Score 0 01/05/2020 Last EPDS Self Harm Result Not on file 01/04 Sex and Gender Information Value Date Recorded Sex Assigned at Not on file Gender Identity Not on file Sexual Orientation Not on file documented as of this encounter Miscellaneous Notes * Telephone Encounter - Belgica Amato RN - 06/14/2022 4:40 PM CDT NWD, see [employer] response, ok to close? Belgica Amato RN, BSN [facility] * Telephone Encounter - Guero Mcnamara RN - 06/14/2022 11:32 AM CDT Please see BrightContext message in reference to refill request encounter. Routed to Ale Nuñez MD, Please review and advise Joshua BROWN. (see [email or web address] encounter advice in reference to refill request) Thank you, Guero Mcnamara RN documented in this encounter Plan of Treatment Not on file documented as of this encounter Visit Diagnoses Not on filedocumented in this encounter Additional Health Concerns Assessment Noted Time PHQ-9 Depression Total Score: 1 02/15/20 20 3:07 PM CDT documented as of this encounter Care Teams Human Resources Benefits Manager Relationship Specialty Start Date End Date JavadMonica GenevaWILDER POWER SAW OPERATOR PCP - General Nurse Practitioner - Family 05/18/18 01/03/23 No Ref-Primary, Physician PCP - General 01/04/23 07/05/23 Maxine Greene PA-C [address] [place] [address] PCP - General Family Medicine 07/06/23 Ale Nuñ[place] [address] [place] [address] Assigned PCP 04/17/22 02/25/23 Shant Bae MD [address] [place] [address] Otolaryngology 11/29/22 Shant Bae MD [address] [place] [address] Assigned Surgical Provider 01/08/23 [place] [address] [place] [address] Assigned PCP 02/26/23 07/08/23 Maxine Greene PA-C [address] [place] [address] Assigned PCP 07/09/23 documented as of this encounter
--- OUTSIDE RECORDS SUMMARY | 2024-03-18 06:30 | XMS_ITS | Encounter Summary ---
Author Organization [place] Address [address] [place] [address] Care Team Providers Care Triage Registered Nurse Name Role Phone Shant Bae MD Unavailable [phone] Shant Bae MD Unavailable [phone] Maxine Gerene PA-C Primary Care Provider Maxine Greene PA-C Unavailable [phone] Encounter Details Date Type Department Care Team (Latest Contact Info) Description 02/14/2024 Travel Social History Tobacco Use Types Packs/Day Years Used Date Smoking Tobacco: Never Passive Smoke Exposure: Never Smokeless Tobacco: Never Alcohol Use Standard [...] often do you attend chur ch or mandaen services? 1 to 4 times per year 07/06/2023 Do you belong to any clubs o r organizations such as mormonism groups, unions, fraternal or athletic groups, or [...] Answer Date Recorded PHQ-2 Score 0 11/29/2022 [facility] Occupat ional Health - Occupational [...] Exercise per Session Not on file 07/06/2023 [place] Depression Scale Answer Date Recorded [place] Depression Score 0 01/05/2020 Last EPDS Self [...] documented as of this encounter Care Teams Triage Registered Nurse Relationship Specialty Start Date End Date Maxine Greene PA-C [address] [place] [phone] PCP - General Family Medicine 07/06/23 Shant Bae MD [address] [place] [address] Otolaryngology 11/29/22 Shant Bae MD [address] [place] [address] Assigned Surgical Provider 01/08/23 Maxine Greene PA-C [address] [place] [phone] Assigned PCP 07/09/23 documented as of this encounter
--- OUTSIDE RECORDS SUMMARY | 2024-03-18 06:30 | XMS_ITS | Encounter Summary ---
Author Organization [place] Address [address] [place] [address] Care Team Providers Care Labor Arbitrator Hearing Office Name Role Phone Monica Farnsworth REFINING STILL OPERATOR APPARATUS CLEANER Primary Care Prov ider Monica Farnsworth APRN [employer] Unavailable + John Brown MD Unavailable [phone] Iron Doyle MD Unavailable [phone] Ale Nuñez MD Unavailable + Shant Bae MD Unavailable [phone] No Ref-Primary, Physician Primary Care Provider Shant Bae MD Unavailable [phone] Iron Doyle MD Unavailable [phone] Maxine Greene PA-C Primary Care Provider Maxine Greene PA-C Unavailable [phone] Encounter Details Date Type Department Care Team (Late st Contact Info) Description 03/27/2020 [facility] [address] [address] Deisi Sánchez MA Social History Tobacco Use Types Packs/Day Years Used Date Smoking Tobacco: Never Smokeless Tobacco: Never Alcohol Use Standard Drinks/Week Comments Not Currently 0 (1 standard drink = 0.6 oz pur e alcohol) social PHQ-2 Answer Date Recorded PHQ-2 Score 0 02/15/2020 [place] Depression Scale Answer Date Recorded [place] Depression Score 0 01/05/2020 Last EPDS Self [...] documented as of this encounter Care Teams Labor Arbitrator Hearing Office Relationship Specialty Start Date End Date Monica Farnsworth APRN [employer]AN[employer] PCP - General Nurse Practitioner - Family 05/18/18 01/03/23 No Ref-Primary, Physician PCP - General 01/04/23 07/05/23 Maxine Greene PA-C [address] [place] [address] PCP - General Family Medicine 07/06/23 Monica Farnswotrh APRN [employer]PAR[employer] CLEANER [address] [place] [address] Assigned PCP 05/19/17 10/17/21 John Brown MD [address] [facility] [address] [place] [address] Assigned OBGYN Provider 07/25/20 08/22/21 [place] [address] [place] [address] Assigned PCP 01/31/22 04/16/22 Ale Nuñez [place] [address] [facility] [place] [address] Assigned PCP 04/17/22 02/25/23 Shant Bae MD [address] [place] [address] MD Otolaryngology 11/29/22 Shant Bae MD [address] [place] [address] Assigned Surgical Provider 01/08/23 [place] [address] [facility] [place] [address] Assigned PCP 02/26/23 07/08/23 Maxine Greene PA-C [address] [facility] [place] [address] Assigned PCP 07/09/23 documented as of this encounter
--- OUTSIDE RECORDS SUMMARY | 2024-03-18 06:30 | XMS_ITS | Encounter Summary ---
Author Organization [facility] Address [address] [place] [address]. [place] [address] Care Team Providers Care Project Coordinator Name Role Phone Monica Farnsworth IMPORT EXPORT AGENT HISTOLOGICAL ILLUSTRATOR Primary Care Prov ider Monica Farnsworth APRN HISTOLOGICAL ILLUSTRATOR Unavailable + John Brown MD Unavailable [phone] Iron Doyle MD Unavailable [phone] Ale Nuñez MD Unavailable + Shant Bea MD Unavailable No Ref-Primary, Physician Primary Care Provider Shant Bae MD Unavailable Iron Doyle MD Unavailable [phone] Maxine Greene PA-C Primary Care Provider Maxine Greene PA-C Unavailable [phone] Encounter Details Date Type Department Care Team (Late st Contact Info) Description 12/26/2019 [facility] Only [facility] [place] [address] [place] [address] Julia Perez, RN Social History Tobacco Use Types Packs/Day [...] have Coronavirus / COVID-19? No / Unsure 12/27/2019 11:24 AM CDT documented as of this encounter Plan of Treatment Not on file documented as of this encounter Procedures Procedure Name Priority Date/Time Associated Diagnosis Comments CASE REQUEST MODIFICATION Routine 2019 12:20 PM CDT documented in this encounter Visit Diagnoses Not on filedocumented in this encounter Additional Health Concerns Assessment Noted Time PHQ-9 Depression Total Score: 0 11/12/19 18 8:03 AM CARE PROFESSIONAL documented as of this encounter Care Teams Project Coordinator Relationship Specialty Start Date End Date Monica Farnsworth APRN HISTOLOGICAL ILLUSTRATOR PCP - General Nurse Practitioner - Family 05/18/18 01/03/23 No Ref-Primary, Physician PCP - General 01/04/23 07/05/23 Maxine Greene PA-C [address] [place] [phone] PCP - General Family Medicine 07/06/23 Monica Farnsworth APRN HISTOLOGICAL ILLUSTRATOR [address] [place] [address] Assigned PCP 05/19/17 10/17/21 John Brown MD [address] [address] Assigned OBGYN Provider 07/25/20 08/22/21 [place] [address] [place] [address] Assigned PCP 01/31/22 04/16/22 Ale Nuñez [place] [address] [place] [address] Assigned PCP 04/17/22 02/25/23 Shant Bae MD [address] [place] [address] Otolaryngology 11/29/22 Shant Bae MD [address] [place] [address] Assigned Surgical Provider 01/08/23 [place] [address] [place] [address] Assigned PCP 02/26/23 07/08/23 Maxine Greene PA-C [address] [place] [address] Assigned PCP 07/09/23 documented as of this encounter
--- OUTSIDE RECORDS SUMMARY | 2024-03-18 06:30 | XMS_ITS | Encounter Summary ---
Author Organization [place] Address [address] [place] [address] Care Team Providers Care Prefitter Doors Name Role Phone Monica Farnsworth DRAG OUT WORKER GREENHOUSE STAFF Primary Care Prov ider Monica Farnsworth APRN GREENHOUSE STAFF Unavailable + John Brown MD Unavailable [phone] Iron Doyle MD Unavailable [phone] Ale Nuñez MD Unavailable + Shant Bae MD Unavailable No Ref-Primary, Physician Primary Care Provider Shant Bae MD Unavailable Iron Doyle MD Unavailable [phone] Maxine Greene PA-C Primary Care Provider [phone] Maxine Greene PA-C Unavailable [phone] Reason for Visit * Reason Onset Date Comments Medication Request 04/21/2020 Encounter Details Date Type Department Care Team (Late st Contact Info) Description 04/21/2020 MyC Medical Advice Formerly [facility] [address] [place] [address] John Brown MD [address] [place] [address] Medication Request Social History Tobacco Use Types Packs/Day Years Used Date Smoking Tobacco: Never Smokeless Tobacco: Never Alcohol Use Standard Drinks/Week Comments Not Currently 0 (1 standard drink = 0.6 oz pur e alcohol) social PHQ-2 Answer Date Recorded PHQ-2 Score 0 02/15/2020 [place] Depression Scale Answer Date Recorded [place] Depression Score 0 01/05/2020 Last EPDS Self [...] have Coronavirus / COVID-19? No / Unsure 04/17/2020 3:31 PM CDT documented as of this encounter Plan of Treatment Not on file documented as of this encounter Visit Diagnoses Diagnosis Other specified hypothyroidism Hypothyroidism affecting in first trimester documented in this encounter Additional Health Concerns Assessment Noted Time PHQ-9 Depression Total Score: 1 02/15/20 20 3:07 PM CDT documented as of this encounter Care Teams Prefitter Doors Relationship Specialty Start Date End Date Monica Farnsworth APRN GREENHOUSE STAFF PCP - General Nurse Practitioner - Family 05/18/18 01/03/23 No Ref-Primary, Physician PCP - General 01/04/23 07/05/23 Maxine Greene PA-C [address] [place] [phone] PCP - General Family Medicine 07/06/23 Monica Farnsworth APRN GREENHOUSE STAFF [address] [place] [address] Assigned PCP 05/19/17 10/17/21 John Brown MD [address] [place] [address] Assigned OBGYN Provider 07/25/20 08/22/21 [place] [address] [facility] [place] [address] Assigned PCP 01/31/22 04/16/22 Ale Nuñez [place] [address] [facility] [place] [address] Assigned PCP 04/17/22 02/25/23 Shant Bae MD [address] [place] [address] MD Otolaryngology 11/29/22 Shant Bae MD [address] [place] [address] Assigned Surgical Provider 01/08/23 [place] [address] [facility] [place] [address] Assigned PCP 02/26/23 07/08/23 Maxine Greene PA-C [address] [facility] [place] [address] Assigned PCP 07/09/23 documented as of this encounter
--- OUTSIDE RECORDS SUMMARY | 2024-03-18 06:31 | XMS_ITS | Encounter Summary ---
Author Organization [place] Address [address] [place] [address] Care Team Providers Care Manager Sales Support Name Role Phone No Ref-Primary, Physician Primary Care Provider [facility] Primary Care Provide r Monica Farnsworth CONVENIENCE STORE CLERK HULL SORTER Primary Care Prov ider Monica Farnsworth CONVENIENCE STORE CLERK HULL SORTER Unavailable + Monica Farnsworth CONVENIENCE STORE CLERK HULL SORTER Unavailable + John Brown MD Unavailable [phone] Iron Doyle MD Unavailable [phone] Ale Nuñez MD Unavailable + Shant Bae MD Unavailable No Ref-Primary, Physician Primary Care Provider Shant Bae MD Unavailable Iron Dolye MD Unavailable [phone] Maxine Greene PA-C Primary Care Provider Maxine Greene PA-C Unavailable [phone] Encounter Details Date Type Department Care Team (Late st Contact Info) Description 2017 [facility] [place] [address] [place] [address] Alyx Thomas MD [address] [place] [address] 700 [place], [place] [address] Social History Tobacco Use Types Packs/Day Years [...] Diagnoses Not on filedocumented in this encounter Care Teams Manager Sales Support Relationship Specialty Start Date End Date No Ref-Primary, Physician PCP - General 08/01/17 03/04/18 [facility] B[address] [place], [place] [id number] PCP - General 03/05/18 05/17/18 Monica Farnsworth APRN HULL SORTER [address] [place], [place] [phone] PCP - General Nurse Practitioner - Family 05/18/18 01/03/23 Monica Farnsworth APRN HULL SORTER [address] [place] [address] PCP - Assigned PCP 05/19/17 12/05/18 No Ref-Primary, Physician PCP - General 01/04/23 07/05/23 Maxine Greene PA-C [address] [place] [address] PCP - General Family Medicine 07/06/23 Monica Farnsworth APRN HULL SORTER [address] [place] [address] Assigned PCP 05/19/17 10/17/21 John Brown MD [address] [facility] [address] [place] [address] Assigned OBGYN Provider 07/25/20 08/22/[address] [place] [address] [facility], [place] [id number] Assigned PCP 01/31/22 04/16/22 Ale Nuñez [place] [address] [place] [address] Assigned PCP 04/17/22 02/25/23 Shant Bae MD [address] [place] [address] Otolaryngology 11/29/22 Shant Bae MD [address] [place] [address] Assigned Surgical Provider 01/08/[address] [place] [address] [place] [address] Assigned PCP 02/26/23 07/08/23 Maxine Greene PA-[place] [address] [place] [address] Assigned PCP 07/09/23 documented as of this encounter
--- OUTSIDE RECORDS SUMMARY | 2024-03-18 06:31 | XMS_ITS | Encounter Summary ---
Author Organization [place] Address [address] [place] [address] Care Team Providers Care Nurse Informatics Educator Name Role Phone No Ref-Primary, Physician Primary Care Provider [facility] Primary Care Provide r Monica Farnsworth JAVA WEB USER INTERFACE DEVELOPER INJECTOR ASSEMBLER Primary Care Prov ider Monica Farnsworth JAVA WEB USER INTERFACE DEVELOPER INJECTOR ASSEMBLER Unavailable + Monica Farnsworth JAVA WEB USER INTERFACE DEVELOPER INJECTOR ASSEMBLER Unavailable + John Brown MD Unavailable [phone] Iron Doyle MD Unavailable [phone] Ale Nuñez MD Unavailable + Shant Bae MD Unavailable No Ref-Primary, Physician Primary Care Provider Shant Bae MD Unavailable Iron Doyle MD Unavailable [phone] Maxine Greene PA-C Primary Care Provider [phone] Maxine Greene PA-C Unavailable [phone] Encounter Details Date Type Department Care Team (Late st Contact Info) Description 06/21/2017 [facility] [place] [address] [address] [place] [address] Alyx Thomas MD [address] [place] [address] 700 [place], [place] 939784 Social History Tobacco Use Types Packs/Day Years [...] on filedocumented in this encounter Care Teams Nurse Informatics Educator Relationship Specialty Start Date End Date No Ref-Primary, Physician PCP - General 08/01/17 03/04/18 [facility] TOURIST GUIDE [place] [place], [place] [id number] PCP - General 03/05/18 05/17/18 Monica Farnsworth APRN INJECTOR ASSEMBLER TOURIST GUIDE [place], [place] [phone] PCP - General Nurse Practitioner - Family 05/18/18 01/03/23 Monica aFrnsworth APRN INJECTOR ASSEMBLER [address] [place] [address] PCP - Assigned PCP 05/19/17 12/05/18 No Ref-Primary, Physician PCP - General 01/04/23 07/05/23 Maxine Greene PA-C [address] [place] [address] PCP - General Family Medicine 07/06/23 Monica Farnsworth APRN INJECTOR ASSEMBLER [address] [place] [address] Assigned PCP 05/19/17 10/17/21 John Brown MD [address] [facility] [address] [place] [address] Assigned OBGYN Provider 07/25/20 08/22/21 [place] [address] [facility], [place] [id number] Assigned PCP 01/31/22 04/16/22 Ale Nuñez [place] [address] [place] [address] Assigned PCP 04/17/22 02/25/23 Shant Bae MD [address] [place] [address] Otolaryngology 11/29/22 Shant Bae MD [address] [place] [address] Assigned Surgical Provider 01/08/23 [place] [address] [place] [address] Assigned PCP 02/26/23 07/08/23 Maxine Greene PA-C [address] [place] [address] Assigned PCP 07/09/23 documented as of this encounter
--- OUTSIDE RECORDS SUMMARY | 2024-03-18 06:31 | XMS_ITS | Encounter Summary ---
Author Organization [place] Address [address] [place] [address] Care Team Providers Care Fbi Profiler Name Role Phone No Ref-Primary, Physician Primary Care Provider [facility] Primary Care Provide r Monica Farnsworth VB DEVELOPER VAULT KEEPER Primary Care Prov ider Monica Farnsworth VB DEVELOPER VAULT KEEPER Unavailable + Monica Farnsworth VB DEVELOPER VAULT KEEPER Unavailable + John Brown MD Unavailable [phone] Iron Doyle MD Unavailable [phone] Ale Nuñez MD Unavailable + Shant Bae MD Unavailable No Ref-Primary, Physician Primary Care Provider Shant Bae MD Unavailable Iron Doyle MD Unavailable [phone] Maxine Greene PA-C Primary Care Provider [phone] Maxine Greene PA-C Unavailable Encounter Details Date Type Department Care Team (Late st Contact Info) Description 03/29/2017 [facility] [place] [address] [place] [address] Alyx Thomas MD [address] [place] [address] 700 [place], [place] [address] Social History Tobacco Use Types Packs/Day Years [...] on filedocumented in this encounter Care Teams Fbi Profiler Relationship Specialty Start Date End Date No Ref-Primary, Physician PCP - General 08/01/17 03/04/18 [facility] ENGINEERING TECHNICAL WRITER [address] [place], [place] [phone] PCP - General 03/05/18 05/17/18 Monica Farnsworth APRN VAULT KEEPER ENGINEERING TECHNICAL WRITER [place] [place], [place] [phone] PCP - General Nurse Practitioner - Family 05/18/18 01/03/23 Monica Farnsworth APRN VAULT KEEPER [address] [place] [address] PCP - Assigned PCP 05/19/17 12/05/18 No Ref-Primary, Physician PCP - General 01/04/23 07/05/23 Maxine Greene PA-C [address] [place] [address] PCP - General Family Medicine 07/06/23 Monica Farnsworth APRN VAULT KEEPER [address] [place] [address] Assigned PCP 05/19/17 10/17/21 John Brown MD [address] [facility] [address] [place] [address] Assigned OBGYN Provider 07/25/20 08/22/21 [place] [address] [facility], [place] [id number] Assigned PCP 01/31/22 04/16/22 Ale Nuñez [place] [address] [place] [address] Assigned PCP 04/17/22 02/25/23 Shant Bae MD [address] [place] [address] Otolaryngology 11/29/22 Shant Bae MD [address] [place] [address] Assigned Surgical Provider 01/08/23 [place] [address] [place] [address] Assigned PCP 02/26/23 07/08/23 Maxine Greene PA-C [address] [place] [address] Assigned PCP 07/09/23 documented as of this encounter
--- OUTSIDE RECORDS SUMMARY | 2024-03-18 06:31 | XMS_ITS | Encounter Summary ---
Author Organization [place] Address [address] [place] [address] Care Team Providers Care Motor Electrician Name Role Phone No Ref-Primary, Physician Primary Care Provider [facility] Primary Care Provide r Monica Farnsworth AUDIO VISUAL AIDS DIRECTOR CNC PROGRAMMER Primary Care Prov ider Monica Farnsworth AUDIO VISUAL AIDS DIRECTOR CNC PROGRAMMER Unavailable + Monica Farnsworth AUDIO VISUAL AIDS DIRECTOR CNC PROGRAMMER Unavailable + John Brown MD Unavailable [phone] Iron Doyle MD Unavailable [phone] Ale Nuñez MD Unavailable + Shant Bae MD Unavailable No Ref-Primary, Physician Primary Care Provider Shant Bae MD Unavailable Iron Doyle MD Unavailable [phone] Maxine Greene PA-C Primary Care Provider [phone] Maxine Greene PA-C Unavailable [phone] Reason for Referral * - Closed Specialty Diagnoses / Procedures Referred By Alexandru t Referred To Contact Diagnoses related condition Chnao Chandra MD [address] [place] [address] Referral ID Status Reason Start Date Expiration Date Visits Re quested Visits Authorized [id number] Closed 02/17/2017 02/17/2018 1 1 Comments AMA,IVF-Verifi Encounter Details Date Type Department Care Team (Late st Contact Info) Description 02/17/2017 [facility] Only [facility] [place] [address] [place], [place] [address] Chano Chandra MD [address] [facility] [address] [place], [place] [address] related condition (Primary Dx) Social History Tobacco Use Types [...] as of this encounter Plan of Treatment Scheduled Referrals Name Type Priority Associated Diagnoses Orde r Schedule [facility] Genetic Counseling Referral Routine related condition 1 Occurrences starting 02/17/2017 until 02/18/2018 documented as of this encounter Results * M Nuchal Transluc w US Single (03/28/2017 10:48 AM CDT) Anatomical Region Laterality Modality Ultrasound 03/28/2017 10:1 7 AM CDT Impressions 03/28/2017 1:10 PM CDT IMPRESSION ----- 1) Intrauterine at 12 0/7 weeks gestational age. 2) The nuchal translucency measurement is within the normal range. 3) The nasal bone was visualized. 4) The anatomy generally appears normal for gestational age, however limited due to position. Narrative 03/28/2017 1:10 PM CDT NT ----- Pat. Name: WENDY ESCUDERO Study Date: 03/28/2017 10:17am Pat. NO: [id number] Referring ??MD: CHANO CHANDRA Site: [facility] Electrical Intern: Zeina Watson RDMS : 1975 Age: 42 ----- INDICATION ----- Nuchal Translucency Assessment with NIPT. METHOD ----- Transabdominal ultrasound examination. ----- Smith . Number of fetuses: 1. DATING ----- ? Date ?Details ?Gest. age ?GIORGI Conception ? Conception: IVF Embryo transfer ?01/22/2017 ?IVF / ET: 5 d ? 12 w + 0 d ? 10/10/2017 U/S ? 03/28/2017 ? based upon CRL ?12 w + 2 d ? 10/08/2017 Assigned dating ?Dating performed on 03/28/2017, based on the IVF / ET date ?12 w + 0 d ? 10/10/2017 GENERAL EVALUATION ----- Cardiac activity: present. Placenta: posterior. Amniotic fluid: normal amount. BIOMETRY ----- CRL ?56.4 ?mm ?12w 2d ? Hadlock NT ?1.8 ?mm ? FHR ?161 ? bpm ? ANATOMY ----- The following structures could not be adequately visualized: GI tract. The following structures were visualized: Cranium. Face: Nasal bone present. Abdominal wall. Urogenital tract. Arms. Legs. MATERNAL STRUCTURES ----- Cervix ?Visualized, Appears Closed. Right Ovary ?Not visualized. Left Ovary ?Not visualized. RECOMMENDATION ----- We discussed the findings on today's ultrasound with the patient. Your patient had cell-free DNA screening (the verifi screen) drawn today. The results of the screen will be forwarded to you as soon as they become available. Because cell-free DNA screening does not screen for open neural tube defects, the patient should be offered MSAFP screening at 15-20 weeks gestation. Comprehensive US is recommended at 18-20 weeks gestation. Return to primary provider for continued care. Thank-you for the opportunity to participate in the care of this patient. If you have questions regarding today's evaluation or if we can be of further service, please contact the [facility]. anomalies may be present but not detected. Procedure Note Deb Corbin, DO - 03/28/2017 NT ----- Pat. Name:KYM ESCUDEROAntonette Date:03/28/2017 10:17am Pat. NO: [id number] MD:CHANO CHANDRA [facility]Ze[facility] Watson RDMS :1975Age:42 ----- INDICATION ----- Nuchal Translucency Assessment with NIPT. METHOD ----- Transabdominal ultrasound examination. ----- Smith . Number of fetuses: 1. DATING ----- DateDetailsGest. age GIORGI ConceptionConception: IVF Embryo transfer 01/22/2017 IVF /ET: 5 d12 w + 0 d 10/10/2017 U/S 03/28/2017based upon CRL12 w + 2 d 10/08/2017 Assigned dating Dating performed on 03/28/2017, based onthe IVF / ET date 12 w + 0d 10/10/2017 GENERAL EVALUATION ----- Cardiac activity: present. Placenta: posterior. Amniotic fluid: normal amount. BIOMETRY ----- CRL 56.4 mm12w 2d Hadlock NT 1.8 mm FHR 161 bpm ANATOMY ----- The following structures could not be adequately visualized: GI tract. The following structures were visualized: Cranium. Face: Nasal bone present. Abdominal wall. Urogenital tract. Arms.Legs. MATERNAL STRUCTURES ----- Cervix Visualized, Appears Closed. Right Ovary Not visualized. Left Ovary Not visualized. RECOMMENDATION ----- We discussed the findings on today's ultrasound with the patient. Your patient had cell-free DNA screening (the verifi screen) drawn today.The results of the screen will be forwarded to you as soon as they becomeavailable. Because cell-free DNA screening does not screen for open neural tube defects, thepatient should be offered MSAFP screening at 15-20 weeks gestation. Comprehensive US is recommended at 18-20 weeks gestation. Return to primary provider for continued care. Thank-you for the opportunity to participate in the care of this patient.If you have questions regarding today's evaluation or if we can be offurther service, please contact the [facility]. anomalies may be present but not detected. IMPRESSION ----- 1) Intrauterine at 12 0/7 weeks gestational age. 2) The nuchal translucency measurement is within the normal range. 3) The nasal bone was visualized. 4) The anatomy generally appears normal for gestational age, howeverlimited due to position. Chano Chandra MD [facility] US ORD ERABLES documented in this encounter Visit Diagnoses Diagnosis related condition- Primary Unspecified complication of , unspecified as to episode of care related condition Unspecified complication of , unspecified as to episode of care documented in this encounter Care Teams Motor Electrician Relationship Specialty Start Date End Date No Ref-Primary, Physician PCP - General 08/01/17 03/04/18 [facility] [place], [place] [phone] PCP - General 03/05/18 05/17/18 Monica Farnsworth APRN CNC PROGRAMMER [place], [place] [phone] PCP - General Nurse Practitioner - Family 05/18/18 01/03/23 Monica Farnsworth APRN CNC PROGRAMMER [address] [place] [address] PCP - Assigned PCP 05/19/17 12/05/18 No Ref-Primary, Physician PCP - General 01/04/23 07/05/23 Maxine Greene PA-C [address] [place] [address] PCP - General Family Medicine 07/06/23 Monica Farnsworth APRN CNC PROGRAMMER [address] [place] [address] Assigned PCP 05/19/17 10/17/21 John Brown MD [address] [place] [address] Assigned OBGYN Provider 07/25/20 08/22/21 [place] [address] [place] [address] Assigned PCP 01/31/22 04/16/22 Ale Nuñ[place] [address] [place] [address] Assigned PCP 04/17/22 02/25/23 Shant Bae MD [address] [place] [address] MD Otolaryngology 11/29/22 Shant Bae MD [address] [place] [address] Assigned Surgical Provider 01/08/23 [place] [address] [place] [address] Assigned PCP 02/26/23 07/08/23 Maxine Greene PA-C [address] [place] [address] Assigned PCP 07/09/23 documented as of this encounter
--- OUTSIDE RECORDS SUMMARY | 2024-03-18 06:31 | XMS_ITS | Encounter Summary ---
Author Organization [place] Address [address] [place] [address] Care Team Providers Care Sales Representative Business Courses Name Role Phone No Ref-Primary, Physician Primary Care Provider [facility] Primary Care Provide r Monica Farnsworth PROJECT CONTROL OFFICER MANAGEMENT PROFESSIONALS Primary Care Prov ider Monica Farnsworth PROJECT CONTROL OFFICER MANAGEMENT PROFESSIONALS Unavailable + Monica Farnsworth PROJECT CONTROL OFFICER MANAGEMENT PROFESSIONALS Unavailable + John Brown MD Unavailable [phone] Iron Doyle MD Unavailable [phone] Ale Nuñez MD Unavailable + Shant Bae MD Unavailable No Ref-Primary, Physician Primary Care Provider Shnat Bae MD Unavailable Iron Doyle MD Unavailable [phone] Maxine Greene PA-C Primary Care Provider Maxine Greene PA-C Unavailable [phone] Encounter Details Date Type Department Care Team (Late st Contact Info) Description 07/06/2017 [facility] [place] [address] [place] [address] Alyx Thomas MD [address] [place] [address] 700 [place], [place] [address] Social History Tobacco Use Types Packs/Day Years [...] on filedocumented in this encounter Care Teams Sales Representative Business Courses Relationship Specialty Start Date End Date No Ref-Primary, Physician PCP - General 08/01/17 03/04/18 [facility] SELF PAY REPRESENTATIVE [place] [place], [place] [phone] PCP - General 03/05/18 05/17/18 Monica Farnsworth APRN MANAGEMENT PROFESSIONALS SELF PAY REPRESENTATIVE [place], [place] 0559[address] PCP - General Nurse Practitioner - Family 05/18/18 01/03/23 Monica Farnsworth APRN MANAGEMENT PROFESSIONALS [address] [place] [address] PCP - Assigned PCP 05/19/17 12/05/18 No Ref-Primary, Physician PCP - General 01/04/23 07/05/23 Maxine Greene PA-C [address] [place] [address] PCP - General Family Medicine 07/06/23 Monica Farnsworth APRN MANAGEMENT PROFESSIONALS [address] [place] [address] Assigned PCP 05/19/17 10/17/21 John Brown MD [address] [facility] [address] [place] [address] Assigned OBGYN Provider 07/25/20 08/22/21 [place] [address] [facility], [place] [id number] Assigned PCP 01/31/22 04/16/22 Ale Nuñez [place] [address] [facility] [place] [address] Assigned PCP 04/17/22 02/25/23 Shant Bae MD [address] [place] [address] Otolaryngology 11/29/22 Shant Bae MD [address] [place] [address] Assigned Surgical Provider 01/08/23 [place] [address] [facility] [place] [address] Assigned PCP 02/26/23 07/08/23 Maxine Greene PA-C [address] [facility] [place] [address] Assigned PCP 07/09/23 documented as of this encounter
--- OUTSIDE RECORDS SUMMARY | 2024-03-18 06:31 | XMS_ITS | Encounter Summary ---
Author Organization [place] Address [address] [place] [address] Care Team Providers Care Testing And Regulating Chief Name Role Phone No Ref-Primary, Physician Primary Care Provider [facility] Primary Care Provide r Monica Farnsworth CROCHETER HAND FIREBRICK LAYER HELPER Primary Care Prov ider Monica Farnsworth CROCHETER HAND FIREBRICK LAYER HELPER Unavailable + Monica Farnsworth CROCHETER HAND FIREBRICK LAYER HELPER Unavailable + John Brown MD Unavailable [phone] Iron Doyle MD Unavailable [phone] Ale Nuñez MD Unavailable + Shant Bae MD Unavailable No Ref-Primary, Physician Primary Care Provider Shant Bae MD Unavailable Iron Doyle MD Unavailable [phone] Maxine Greene PA-C Primary Care Provider Maxine Greene PA-C Unavailable [phone] Encounter Details Date Type Department Care Team (Late st Contact Info) Description 04/29/2017 [facility] [place] [address] [place] [address] Alyx Thomas MD [address] [place] [address] 700 [place], [place] 739284 Social History Tobacco Use Types Packs/Day Years [...] on filedocumented in this encounter Care Teams Testing And Regulating Chief Relationship Specialty Start Date End Date No Ref-Primary, Physician PCP - General 08/01/17 03/04/18 [facility] ASSISTANT IMPORT MANAGER [place], [place] [id number] PCP - General 03/05/18 05/17/18 Monica Farnsworth APRN FIREBRICK LAYER HELPER ASSISTANT IMPORT MANAGER [place], [place] [id number] PCP - General Nurse Practitioner - Family 05/18/18 01/03/23 Monica Farnsworth APRN FIREBRICK LAYER HELPER [address] [place] [address] PCP - Assigned PCP 05/19/17 12/05/18 No Ref-Primary, Physician PCP - General 01/04/23 07/05/23 Maxine Greene PA-C [address] [place] [address] PCP - General Family Medicine 07/06/23 Monica Farnsworth APRN FIREBRICK LAYER HELPER [address] [place] [address] Assigned PCP 05/19/17 10/17/21 John Brown MD [address] [facility] [address] [place] [address] Assigned OBGYN Provider 07/25/20 08/22/21 [place] [address] [facility], [place] [id number] Assigned PCP 01/31/22 04/16/22 Ale Nuñez [place] [address] [place] [address] Assigned PCP 04/17/22 02/25/23 Shant Bae MD [address] [place] [address] Otolaryngology 11/29/22 Shant Bae MD [address] [place] [address] Assigned Surgical Provider 01/08/23 [place] [address] [place] [address] Assigned PCP 02/26/23 07/08/23 Maxine Greene PA-C [address] [place] [address] Assigned PCP 07/09/23 documented as of this encounter
--- OUTSIDE RECORDS SUMMARY | 2024-03-18 06:31 | XMS_ITS | Encounter Summary ---
Author Organization [place] Address [address] [place] [address] Care Team Providers Care Vocational Adviser Name Role Phone No Ref-Primary, Physician Primary Care Provider [facility] Primary Care Provide r Monica Farnsworth FAMILY PHYSICIAN SUPERVISING PRODUCER Primary Care Prov ider Monica Farnsworth FAMILY PHYSICIAN SUPERVISING PRODUCER Unavailable + Monica Farnsworth FAMILY PHYSICIAN SUPERVISING PRODUCER Unavailable + John Brown MD Unavailable [phone] Iron Doyle MD Unavailable [phone] Ale Nuñez MD Unavailable + Shant Bae MD Unavailable [phone] No Ref-Primary, Physician Primary Care Provider Shant Bae MD Unavailable Iron Doyle MD Unavailable [phone] Maxine Greene PA-C Primary Care Provider Maxine Greene PA-C Unavailable [phone] Encounter Details Date Type Department Care Team (Late st Contact Info) Description 06/01/2017 [facility] [place] [address] [place] [address] Alyx Thomas MD 606 [facility] 700 [place], [place] [address]38[address] Social History Tobacco Use Types Packs/Day Years [...] encounter Miscellaneous Notes * Telephone Encounter - Alie Thompson MD - 06/01/2017 11:07 AM CDT Can we get her an appt with one of the FP providers before she leaves? This sounds respiratory, notOB, and I am not sure what to advise. It would be safe to use an inhaler in if that is what FP recommends. documented in this encounter Plan of Treatment Not on file documented as of this encounter Visit Diagnoses Not on filedocumented in this encounter Care Teams Vocational Adviser Relationship Specialty Start Date End Date No Ref-Primary, Physician PCP - General 08/01/17 03/04/18 [facility] MOLDING ROOM SUPERVISOR [place], [place] [id number] PCP - General 03/05/18 05/17/18 Monica Farnsworth APRN SUPERVISING PRODUCER MOLDING [place] [address] PCP - General Nurse Practitioner - Family 05/18/18 01/03/23 Monica Farnsworth APRN SUPERVISING PRODUCER [address] [facility] [place] [address] PCP - Assigned PCP 05/19/17 12/05/18 No Ref-Primary, Physician PCP - General 01/04/23 07/05/23 Maxine Greene PA-C 101[address] [facility] [place] [address] PCP - General Family Medicine 07/06/23 Monica Farnsworth APRN SUPERVISING PRODUCER [address] [facility] [place] [address] Assigned PCP 05/19/17 10/17/21 John Brown MD [address] [facility] 100 [place] [address] Assigned OBGYN Provider 07/25/20 08/22/21 [place] [address] [facility], [place] [id number] Assigned PCP 01/31/22 04/16/22 Ale Nuñez [place] [address] [facility], [place] [id number] Assigned PCP 04/17/22 02/25/23 Shant Bae MD 6[address] [facility] [place] [address] Otolaryngology 11/29/22 Shant Bae MD 6341 [place] [address] Assigned Surgical Provider 01/08/23 [place] [address] [place] [address] Assigned PCP 02/26/23 07/08/23 Maxine Greene PA-C [address] [place] [address] Assigned PCP 07/09/23 documented as of this encounter
--- OUTSIDE RECORDS SUMMARY | 2024-03-18 06:31 | XMS_ITS | Encounter Summary ---
Author Organization [place] Address [address] [place] [address] Care Team Providers Care Ferry Boat Captain Name Role Phone No Ref-Primary, Physician Primary Care Provider [facility] Primary Care Provide r Monica Farnsworth ARSON AND BOMB INVESTIGATOR SOIL FERTILITY SPECIALIST Primary Care Prov ider Monica Farnsworth ARSON AND BOMB INVESTIGATOR SOIL FERTILITY SPECIALIST Unavailable + Monica Farnsworth ARSON AND BOMB INVESTIGATOR SOIL FERTILITY SPECIALIST Unavailable + John Brown MD Unavailable [phone] Iron Doyle MD Unavailable [phone] Ale Nuñez MD Unavailable + Shant Bae MD Unavailable [phone] No Ref-Primary, Physician Primary Care Provider Shant Bae MD Unavailable Iron Doyle MD Unavailable [phone] Maxine Greene PA-C Primary Care Provider Maxine Greene PA-C Unavailable [phone] Encounter Details Date Type Department Care Team (Late st Contact Info) Description 09/07/2017 [facility] [place] [address] [place] [address] Alyx Thomas MD [address] [place] [address] 700 [place], [place] 84[address] Social History Tobacco Use Types Packs/Day Years [...] on filedocumented in this encounter Care Teams Ferry Boat Captain Relationship Specialty Start Date End Date No Ref-Primary, Physician PCP - General 08/01/17 03/04/18 [facility] FIELD LIABILITY GENERALIST [place], [place] [phone] PCP - General 03/05/18 05/17/18 Monica Farnsworth APRN SOIL FERTILITY SPECIALIST FIELD LIABILITY GENERALIST [place], [place] [phone] PCP - General Nurse Practitioner - Family 05/18/18 01/03/23 Monica Farnsworth APRN SOIL FERTILITY SPECIALIST [address] [place] [address] PCP - Assigned PCP 05/19/17 12/05/18 No Ref-Primary, Physician PCP - General 01/04/23 07/05/23 Maxine Greene PA-C [address] [place] [address] PCP - General Family Medicine 07/06/23 Monica Farnsworth APRN SOIL FERTILITY SPECIALIST [address] [place] [address] Assigned PCP 05/19/17 10/17/21 John Brown MD [address] [facility] [address] [place] [address] Assigned OBGYN Provider 07/25/20 08/22/21 [place] [address] [facility] [id number] Assigned PCP 01/31/22 04/16/22 Ale Nuñez [place] [address] [facility] [address] Assigned PCP 04/17/22 02/25/23 Shant Bae MD 6341 [place] [address] Otolaryngology 11/29/22 Shant Bae MD 6341 [place] [address] Assigned Surgical Provider 01/08/23 [place] [address] [facility] [address] Assigned PCP 02/26/23 07/08/23 Maxine Greene PA-C [address] [facility] [address] Assigned PCP 07/09/23 documented as of this encounter
--- OUTSIDE RECORDS SUMMARY | 2024-03-18 06:31 | XMS_ITS | Encounter Summary ---
Author Organization [place] Address [address] [place] [address] Care Team Providers Care Thermodynamicist Name Role Phone No Ref-Primary, Physician Primary Care Provider [facility] Primary Care Provide r Monica Farnsworth LEGAL CASHIER EDITOR AT LARGE Primary Care Prov ider Monica Farnsworth LEGAL CASHIER EDITOR AT LARGE Unavailable + Monica Farnsworth LEGAL CASHIER EDITOR AT LARGE Unavailable + John Brown MD Unavailable [phone] Iron Doyle MD Unavailable [phone] Ale Nuñez MD Unavailable + Shant Bae MD Unavailable [phone] No Ref-Primary, Physician Primary Care Provider Shant Bae MD Unavailable Iron Doyle MD Unavailable [phone] Maxine Greene PA-C Primary Care Provider Maxine Greene PA-C Unavailable [phone] Encounter Details Date Type Department Care Team (Latest Contact Info) Description 09/13/2017 [facility] [address] [place] [address] Alyx Thomas MD [address] [facility] 700 [place], [place] [address] Other specified hypothyroidism (Primary Dx) Social History Tobacco Use Types [...] this encounter Visit Diagnoses Diagnosis Other specified hypothyroidism- Primary documented in this encounter Additional Health Concerns Assessment Noted Time PHQ-9 Depression Total Score: 4 09/13/20 17 10:16 AM STAFF NUCLEAR WEAPONS OFFICER documented as of this encounter Care Teams Thermodynamicist Relationship Specialty Start Date End Date No Ref-Primary, Physician PCP - General 08/01/17 03/04/18 [facility] CENTRAL [place] [address] PCP - General 03/05/18 05/17/18 Monica Farnsworth APRN EDITOR AT LARGE CENTRAL [place] [address] PCP - General Nurse Practitioner - Family 05/18/18 01/03/23 Monica Farnsworth APRN EDITOR AT LARGE [address] [place] [address] PCP - Assigned PCP 05/19/17 12/05/18 No Ref-Primary, Physician PCP - General 01/04/23 07/05/23 Maxine Greene PA-C [address] [place] [address] PCP - General Family Medicine 07/06/23 Monica Farnsworth APRN EDITOR AT LARGE [address] [facility] [place] [address] Assigned PCP 05/19/17 10/17/21 John Brown MD [address] [facility] 100 [place] [address] Assigned OBGYN Provider 07/25/20 08/22/21 [place] [address] [place] [address] Assigned PCP 01/31/22 04/16/22 Ale Nuñ[place] [address] [place] [address] Assigned PCP 04/17/22 02/25/23 Shant Bae MD 6341 [place] [address] Otolaryngology 11/29/22 Shant Bae MD 6341 [place] [address] Assigned Surgical Provider 01/08/23 [place] [address] [place], [place] [address] Assigned PCP 02/26/23 07/08/23 Maxine Greene PA-C [address] [place] [address] Assigned PCP 07/09/23 documented as of this encounter
--- OUTSIDE RECORDS SUMMARY | 2024-03-18 06:31 | XMS_ITS | Encounter Summary ---
Author Organization [place] Address [address] [place] [address] Care Team Providers Care Atomic Process Engineer Name Role Phone No Ref-Primary, Physician Primary Care Provider [facility] Primary Care Provide r Monica Farnsworth FELT MACHINE MECHANIC CASE PREPARER AND LINER Primary Care Prov ider Monica Farnsworth FELT MACHINE MECHANIC CASE PREPARER AND LINER Unavailable + Monica Farnsworth FELT MACHINE MECHANIC CASE PREPARER AND LINER Unavailable + John Brown MD Unavailable Iron Doyle MD Unavailable [phone] Ale Nuñez MD Unavailable + Shant Bae MD Unavailable No Ref-Primary, Physician Primary Care Provider Shant Bae MD Unavailable Iron Doyle MD Unavailable [phone] Maxine Greene PA-C Primary Care Provider Maxine Greene PA-C Unavailable [phone] Encounter Details Date Type Department Care Team (Late st Contact Info) Description 05/30/2017 [facility] [place] [address] [place] [address] Alyx Thomas MD [address] [place] [address] 700 [place], [place] [address] Social History Tobacco Use Types Packs/Day Years [...] on filedocumented in this encounter Care Teams Atomic Process Engineer Relationship Specialty Start Date End Date No Ref-Primary, Physician PCP - General 08/01/17 03/04/18 [facility] CARDIOVASCULAR SONOGRAPHER [place], [place] [phone] PCP - General 03/05/18 05/17/18 Monica Farnsworth APRN CASE PREPARER AND LINER CARDIOVASCULAR SONOGRAPHER [place], [place] [phone] PCP - General Nurse Practitioner - Family 05/18/18 01/03/23 Monica Farnsworth APRN CASE PREPARER AND LINER [address] [place] [address] PCP - Assigned PCP 05/19/17 12/05/18 No Ref-Primary, Physician PCP - General 01/04/23 07/05/23 Maxine Greene PA-C [address] [place] [address] PCP - General Family Medicine 07/06/23 Monica Farnsworth APRN CASE PREPARER AND LINER [address] [place] [address] Assigned PCP 05/19/17 10/17/21 John Brown MD [address] [facility] [address] [place] [address] Assigned OBGYN Provider 07/25/20 08/22/21 [place] [address] [facility], [place] [id number] Assigned PCP 01/31/22 04/16/22 Ale Nuñez [place] [address] [facility] [place] [address] Assigned PCP 04/17/22 02/25/23 Shant Bae MD 6341 [place] [address] Otolaryngology 11/29/22 Shant Bae MD [address]341 [place] [address] Assigned Surgical Provider 01/08/23 [place] [address] [facility] [place] [address] Assigned PCP 02/26/23 07/08/23 Maxine Greene PA-C [address] [facility] [place] [address] Assigned PCP 07/09/23 documented as of this encounter
[2024-03-18 06:45] VITALS: PULSE 100; RESP 18; O2SAT 97
== END 2024-03-18 07:07 | disposition home or self-care (01) ==
PROVIDERS: Emergency Provider Internal Medicine
DX: K59.00 Constipation, unspecified (principal)
CPT/HCPCS: 36415; 74177; 80053; 81003; 82150; 85025; 99283; 99285; Q9967

== ENCOUNTER 2025-02-17 17:40 | Emergency (ER) | payer BC, SELFPAY ==
[2025-02-17 17:49] VITALS: BP 152/93; PULSE 76; RESP 20; TEMP 37; O2SAT 97; BMI 31.1
--- NOTE | 2025-02-17 18:48 | ED_ITS ---
HPI - General Adult General Date Seen: 02/17/25 Chief complaint: Laceration/Wound Stated complaint: right hand laceration Time Seen by Provider: 02/17/25 18:40 History of Present Illness HPI narrative: 49-year-old female presenting to the ER today with a laceration to her right thumb. She cut herself with a knife while doing dishes just prior to arrival. Most recent tetanus was in 2019. She is otherwise generally healthy except for history of irritable bowel syndrome. No diabetes or cancer or immunosuppression. She suffered a laceration to the dorsum of her left thumb over the dorsum of the IP joint. She had persistent ongoing venous oozing without any pulsatile bleeding at home. No numbness or tingling in her thumb. She is able to move it normally. Because she could not get the bleeding to stop at home she came here to the ER but fortunately the bleeding did stop on the way here. Related Data Home Medications ?Medication ?Instructions ?Recorded ?Confirmed glycopyrrolate 2 mg tablet 2 mg PO QPM 07/28/24 02/17/25 levothyroxine 25 mcg tablet 25 mcg PO DAILY 08/03/24 02/17/25 Previous Rx's ?Medication ?Instructions ?Recorded albuterol sulfate 90 mcg/actuation 2 puff inhalation Q4-6H PRN 07/28/24 aerosol inhaler shortness of breath or wheezing #6.7 grams trazodone 50 mg tablet 100 mg (2 x 50 mg) PO QPM PRN 12/13/24 insomnia #30 tabs amoxicillin 875 mg-potassium 1 tab PO BID 10 days #20 tabs 02/15/25 clavulanate 125 mg tablet Allergies Allergy/AdvReac Type Severity Reaction Status Date / Time seasonal Allergy Mild Uncoded 02/15/25 08:06 [facility] Social History Smoking Status: Never smoker How often do you have a drink containing alcohol: never AUDIT-C Alcohol total score: 0 Non-prescribed substance use: denies use Exam Narrative: Exam Narrative: Constitutional: Appears well-developed and well-nourished. Active. Non-toxic appearing. HENT: Head: Atraumatic. No signs of injury. Nose: No nasal discharge. Mouth/Throat: Mucous membranes are moist. Pharynx is normal. Tonsils symmetric. Uvula midline. Airway patent. Eyes: Conjunctivae normal and EOM are normal. Pupils are equal, round, and reactive to light. Right eye exhibits no discharge. Left eye exhibits no discharge. No icterus. Neck: Normal range of motion. Neck supple. No adenopathy. No stridor. Cardiovascular: Normal rate and regular rhythm.. Normal distal cap refill. Small amount of slow venous oozing from her thumb laceration. No pulsatile bleeding. Pulmonary/Chest: Effort normal. No stridor. No respiratory distress. . Musculoskeletal: Normal range of motion in her thumb including the MCP and IP joint. Normal flexion and extension. No signs of extensor tendon injury. Intact radial and ulnar digital or sensory function. Normal distal cap refill. There is a 1 cm L-shaped laceration on the dorsum of the thumb over the dorsum of the IP joint. After digital block and wound prep I was able to inspect this in a bloodless field I do not see any foreign body and no evidence that it violates the extensor tendon or the joint space of the IP joint. Otherwise musculoskeletal is normal. Neurological: Alert. Normal strength. No cranial nerve deficit or sensory deficit. Coordination normal. GCS eye subscore is 4. GCS verbal subscore is 5. GCS motor subscore is 6. Skin: Skin is warm. No rash noted. Const: Vital Signs, click to edit/add: Vital Signs - 24 hr 02/17/25 17:49 Temperature 98.6 F Pulse Rate [Pulse Oximeter] 76 Respiratory Rate 20 Blood Pressure [Ri ght Upper Arm] 152/93 H Pulse Oximetry 97 Oxygen Delivery Me thod Room Air Course Vital Signs Vital signs: Initial Vital Signs Temperature 98.6 F 02/17/25 17:49 Temperature Source Temporal Artery Scan 02/17/25 17:49 Pulse Rate 76 02/17/25 17:49 Respiratory Rate 20 02/17/25 17:49 Blood Pressure 152/93 H 02/17/25 17:49 Blood Pressure Mean 112 H 02/17/25 17:49 Pulse Oximetry 97 02/17/25 17:49 Oxygen Delivery Method Room Air 02/17/25 17:49 Vital Signs Temperature 98.6 F 02/17/25 17:49 Pulse Rate 76 02/17/25 17:49 Respiratory Rate 20 02/17/25 17:49 Blood Pressure 152/93 H 02/17/25 17:49 Pulse Oximetry 97 02/17/25 17:49 Oxygen Delivery Method Room Air 02/17/25 17:49 Temperature 98.6 F 02/17/25 17:49 Pulse Rate 76 02/17/25 17:49 Respiratory Rate 20 02/17/25 17:49 Blood Pressure 152/93 H 02/17/25 17:49 Pulse Oximetry 97 02/17/25 17:49 Oxygen Delivery Method Room Air 02/17/25 17:49 Medications Administered Medications: Discontinued Medications Generic Name Dose Route Start Last Admin Trade Name Amrik PRN Reason Stop Dose Admin Bupivacaine HCl 30 ml 02/17/25 18:55 02/17/25 19:32 Bupivacaine 0.25% 30 Ml INJECTION 02/17/25 18:56 30 ml ONCE ONE Administration Medical Decision Making MDM Narrative Medical decision making narrative: Findings and exam are consistent with an uncomplicated laceration which was repaired as noted above. There is no evidence at this time to suggest any associated fracture or foreign body. There is no evidence to suggest tendon or arterial injury and patient is neurologically in tact. The patient is to follow up for suture removal as instructed in 8-10 days. This wound it directly is over the dorsum of the IP joint which raises concern that if she tries to flex her thumb too much it will pull on the stitches and break the wound open. After placement of addressing the IP joint is actually fairly immobilized. Patient is confident that she will be able to keep her thumb protected with the dressing and so will hold off on the splint for now. Indications to seek urgent re evaluation and signs of infection (including but not limited to increasing pain, redness, swelling, fevers, and drainage) were reviewed. Tetanus is up-to-date. This is a clean and non-contaminated wound in which prophylactic antibiotics are not indicated. An understanding of the discharge instructions and need for follow up were verbally confirmed. Discharge Plan Discharge Clinical Impression: Laceration Patient Disposition: Home, Self-Care Condition: Stable Instructions: Finger Laceration (ED) Additional Instructions: As we discussed, please keep the wound covered and clean for 24 hours. After that i it is okay to take off the dressing. Wash the wound gently with a warm wet gauze or warm clean washcloth. After the wound is clean, data gently dry and then reapply antibiotic ointment or petroleum gauze and cover this wound and stitches with a bandage. Clean the wound gently once per day to help keep it clean. Avoid submerging your wound under water until the stitches are removed. Avoid activities that require a lot of bending or grabbing with your right hand because forceful flexing of your thumb knuckle could tear the stitches loose. Return to the ER right away if you have any concern for infection such as redness, swelling, or pus draining from your wound. Please follow-up with your regular doctor in 8-10 days to have sutures removed. Good luck! Prescriptions: No Action glycopyrrolate 2 mg tablet 2 mg PO QPM albuterol sulfate 90 mcg/actuation HFA aerosol inhaler 2 puff inhalation Q4-6H PRN (Reason: shortness of breath or wheezing) Qty: 6.7 0RF amoxicillin-pot clavulanate 875-125 mg tablet 1 tab PO BID 10 Days Qty: 20 0RF levothyroxine 25 mcg tablet 25 mcg PO DAILY trazodone 50 mg tablet 100 mg PO QPM PRN (Reason: insomnia) Qty: 30 1RF Follow Up/Referrals: Provider,Not a Local [Primary Care Provider] - Stand Alone Forms: [facility] Info Instructions Procedures Laceration Left thumb laceration: Pre procedure diagnosis: Left thumb dorsal IP joint laceration Verification/time out: correct patient and correct site Site: hand (Left thumb laceration) Side (If applicable): left Size (cm): 1 Description: linear (L-shaped on dorsum of IP joint. Does not violate extensor tendon or joint space) Depth: simple, single layer Local Anesthetic: bupivacaine 0.25% (3 mL, digital block. Good anesthesia was achieved. No complications.) Pre-repair: wound explored, irrigated extensively and deep structures intact Skin layer closed with: nylon Size (cm): 5-0 Number of sutures: 3 Technique: simple, interrupted
[2025-02-17] MEDS: BUPIVACAINE 0.25% 30 ML INJECTION (19:32)
--- OUTSIDE RECORDS SUMMARY | 2025-02-17 19:39 | XMS_ITS | Encounter Summary ---
Author Organization [place] Address [address] [place] [address] Care Team Providers Care Fender Mechanic Apprentice Name Role Phone No Ref-Primary, Physician Primary Care Provider [facility] Primary Care Provide r Monica Farnsworth SUPERVISOR STITCHING DEPARTMENT BUSINESS CONSULT Primary Care Provider + Monica Farnsworth SUPERVISOR STITCHING DEPARTMENT BUSINESS CONSULT Unavailable [phone] Monica Farnsworth SUPERVISOR STITCHING DEPARTMENT BUSINESS CONSULT Unavailable [phone] John Brown MD Unavailable [phone] Iron Doyle MD Unavailable [phone] Ale Nuñez MD Unavailable + Shant Bae MD Unavailable [phone] No Ref-Primary, Physician Primary Care Provider Shant Bae MD Unavailable Iron Doyle MD Unavailable [phone] Maxine Greene PA-C Primary Care Provider [phone] Maxine Greene PA-C Unavailable [phone] Margarita Reyes APRN BUSINESS CONSULT Unavailable Encounter Details Date Type Department Care Team (Late st Contact Info) Description [address] [facility] [address] [place] [address] Alyx Thomas MD [address] [facility] [address] [place] [address] Social History Tobacco Use Types Packs/Day Years Used Date Smoking Tobacco: Never Smokeless Tobacco: Never Alcohol Use Standard Drinks/Week Comments Yes 0 (1 standard drink = 0.6 oz pur e alcohol) social Comments Yes Sex and Gender Information Value Date Recorded Sex Assigned at Not on file Legal Sex Female 3:20 PM CDT Gender Identity Not on file Sexual Orientation Not on file documented as of this encounter Plan of Treatment Not on file documented as of this encounter Visit Diagnoses Not on filedocumented in this encounter Care Teams Fender Mechanic Apprentice Relationship Specialty Start Date End Date No Ref-Primary, Physician PCP - General 08/01/17 03/04/18 [facility] [place] [address] PCP - General 03/05/18 05/17/18 Monica Farnsworth [place] [address] PCP - General Nurse Practitioner - Family 05/18/18 01/03/23 Monica Farnsworth APRN BUSINESS CONSULT [address] [place] [address] PCP - Assigned PCP 05/19/17 12/05/18 No Ref-Primary, Physician PCP - General 01/04/23 07/05/23 Maxine Greene PA-C [address] [place] [address] PCP - General Family Medicine 07/06/23 Javad Monica SUPERVISOR STITCHING DEPARTMENT BUSINESS CONSULT [address] [place] [address] Assigned PCP 05/19/17 10/17/21 John Brown MD [address] [facility] [address] [place], [place] [address] Assigned OBGYN Provider 07/25/20 08/22/21 [place] [address] [place], [place] [address] Assigned PCP 01/31/22 04/16/22 Ale Nuñ[place] [address] [place] [address] Assigned PCP 04/17/22 02/25/23 Shant Bae MD [address] [place], [place] [address] Otolaryngology 11/29/22 Shant Bae MD [address] [place] [address] Assigned Surgical Provider 01/08/23 07/24/24 [place] [address] [place], [place] [address] Assigned PCP 02/26/23 07/08/23 Maxine Greene PA-C [address] [place] [address] Assigned PCP 07/09/23 01/22/25 Margarita Reyes APRN BUSINESS CONSULT [address] [place] [address] Assigned PCP 01/23/25 documented as of this encounter
--- OUTSIDE RECORDS SUMMARY | 2025-02-17 19:39 | XMS_ITS | Encounter Summary ---
Author Organization [place] Address [address] [place] [address] Care Team Providers Care Machine Pan Greaser Name Role Phone No Ref-Primary, Physician Primary Care Provider [facility] Primary Care Provide r Monica Farnsworth TRACK MANAGER YOUTH SPECIALIST Primary Care Provider + Monica Farnsworth TRACK MANAGER YOUTH SPECIALIST Unavailable [phone] Monica Farnsworth TRACK MANAGER YOUTH SPECIALIST Unavailable [phone] John Brown MD Unavailable [phone] Iron Doyle MD Unavailable [phone] Ale Nuñez MD Unavailable + Shant Bae MD Unavailable [phone] No Ref-Primary, Physician Primary Care Provider Shant Bae MD Unavailable Iron Doyle MD Unavailable [phone] Maxine Greene PA-C Primary Care Provider [phone] Maxine Greene PA-C Unavailable [phone] Margarita Reyes APRN YOUTH SPECIALIST Unavailable Encounter Details Date Type Department Care Team (Late st Contact Info) Description 03/29/2017 MyC Medical Advice [facility] [address] [place] [address] Alyx Thomas MD [address] [facility] 700 [place] [address] Social History Tobacco Use Types Packs/Day Years [...] on filedocumented in this encounter Care Teams Machine Pan Greaser Relationship Specialty Start Date End Date No Ref-Primary, Physician PCP - General 08/01/17 03/04/18 [facility] [place] [address] PCP - General 03/05/18 05/17/18 Monica Farnsworth [place] [address] PCP - General Nurse Practitioner - Family 05/18/18 01/03/23 Monica Farnsworth APRN YOUTH SPECIALIST [address] [place] [address] PCP - Assigned PCP 05/19/17 12/05/18 No Ref-Primary, Physician PCP - General 01/04/23 07/05/23 Maxine Greene PA-C [address] [place] [address] PCP - General Family Medicine 07/06/23 Javad Monica TRACK MANAGER YOUTH SPECIALIST [address] [place] [address] Assigned PCP 05/19/17 10/17/21 John Brown MD [address] [facility] [address] [place], [place] [address]24[address] Assigned OBGYN Provider 07/25/20 08/22/21 [place] [address] [place], [place] [address] Assigned PCP 01/31/22 04/16/22 Ale Nueñ[place] [address] [place] [address] Assigned PCP 04/17/22 02/25/23 Shant Bae MD [address] [place], [place] [address] Otolaryngology 11/29/22 Shant Bae MD [address] [place] [address] Assigned Surgical Provider 01/08/23 07/24/24 [place] [address] [place], [place] [address] Assigned PCP 02/26/23 07/08/23 Maxine Greene PA-C [address] [place] [address] Assigned PCP 07/09/23 01/22/25 Margarita Reyes APRN YOUTH SPECIALIST [address] [place] [address] Assigned PCP 01/23/25 documented as of this encounter
--- OUTSIDE RECORDS SUMMARY | 2025-02-17 19:39 | XMS_ITS | Encounter Summary ---
Author Organization [place] Address [address] [place] [address] Care Team Providers Care Sterile Proc Tech Name Role Phone Shant Bae MD Unavailable Shant Bae MD Unavailable [phone] Maxine Greene PA-C Primary Care Provider Maxine Greene PA-C Unavailable [phone] Margarita Reyes APRN DIRECTOR CONSUMER Unavailable Encounter Details Date Type Department Care Team (Late st Contact Info) Description 04/11/2024 MyC Medical Advice [facility] [address] [place] [address] Margarita Godoy, KAUSHIK Social History Tobacco Use Types Packs/Day Years [...] week 07/06/2023 How often do you attend [facility] or jewish services? 1 to 4 times per year 07/06/2023 Do you belong to any clubs o r organizations such as confucianism groups, unions, fraternal or athletic groups, or [...] you are drinking? 1 or 2 07/06/2023 Frequency of Binge Drinking Not on file 01/2023 PHQ-2 Answer Date Recorded PHQ-2 Score 0 11/29/2022 [facility] - Occupational Stress Questionnaire Answer Date [...] Exercise per Session Not on file 07/06/2023 [place] Depression Scale Answer Date Recorded [place] Depression Score 0 01/05/2020 Last EPDS Self [...] you bought just not last and you didn t have money to get more? Patient refused 07/06/2023 Housing Stability Answer Date Recorded Do you have housing? (Housin g is defined as stable permanent housing and does not include staying outside in a car, in a tent, in an abandoned building, in an overnight fpc, or couch-surfing.) Patient refused 07/06/2023 Are you worried about losing your housing? Fabricio nt refused 07/06/2023 Financial Resource Strain Answer [...] by your partner or ex-partner? 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 Not on file Not on file Not on file documented as of this encounter Plan of Treatment Not on file documented as of this encounter Visit Diagnoses Not on filedocumented in this encounter Additional Health Concerns Assessment Noted Time PHQ-9 Depression Total Score: 1 02/15/20 20 3:07 PM CDT documented as of this encounter Care Teams Sterile Proc Tech Relationship Specialty Start Date End Date Maxine Greene PA-C [address] [place] [address] PCP - General Family Medicine 07/06/23 Shant Bae MD [address] [facility] [place] [address] Otolaryngology 11/29/22 Shant Bae MD [address] [facility] [place] [address] Assigned Surgical Provider 01/08/23 07/24/24 Maxine Greene PA-C [address] [place] [address] Assigned PCP 07/09/23 01/22/25 Margarita Reyes APRN [facility] [address] [place] [address] Assigned PCP 01/23/25 documented as of this encounter
--- OUTSIDE RECORDS SUMMARY | 2025-02-17 19:39 | XMS_ITS | Encounter Summary ---
Author Organization [place] Address [address] [place] [address]. [place] [address] Care Team Providers Care Primary School Teacher Librarian Name Role Phone Monica Farnsworth APRN AIRLINE CAPTAIN Primary Care Provider + Monica Farnsworth APRN AIRLINE CAPTAIN Unavailable John Brown MD Unavailable [phone] Iron Doyle MD Unavailable [phone] Ale Nuñez MD Unavailable + Shant Bae MD Unavailable No Ref-Primary, Physician Primary Care Provider Shant Bae MD Unavailable Iron Doyle MD Unavailable [phone] Maxine Greene PA-C Primary Care Provider [phone] Maxine Greene PA-C Unavailable [phone] Margarita Reyes APRN AIRLINE CAPTAIN Unavailable Encounter Details Date Type Department Care Team (Late st Contact Info) Description 12/26/2019 Orders Only [facility] [place] [address] [place] [address] Julia Perez, RN Social History [...] file Not on file Not on file COVID-19 Exposure Response Date [...] Total Score: 0 11/12/19 18 8:03 AM LICENSING OFFICER documented as of this encounter Care Teams Primary School Teacher Librarian Relationship Specialty Start Date End Date Monica Farnsworth APRN AIRLINE CAPTAIN PCP - General Nurse Practitioner - Family 05/18/18 01/03/23 No Ref-Primary, Physician PCP - General 01/04/23 07/05/23 Maxine Greene PA-C [address] [facility] [place] [address] PCP - General Family Medicine 07/06/23 Monica Farnsworth APRN AIRLINE CAPTAIN [address] [place] [address] Assigned PCP 05/19/17 10/17/21 John Brown MD [address] [address] Assigned OBGYN Provider 07/25/20 08/22/21 [place] [address] [facility] [place] [address] Assigned PCP 01/31/22 04/16/22 Ale Nuñez [place] [address] [facility] [place] [address] Assigned PCP 04/17/22 02/25/23 Shant Bae MD 6341 [place] [address] Otolaryngology 11/29/22 Shant Bae MD 6341 [place] [address] Assigned Surgical Provider 01/08/23 07/24/24 [place] [address] [facility] [place] [address] Assigned PCP 02/26/23 07/08/23 Maxine Greene PA-C 99[address] [facility] [place] [address] Assigned PCP 07/09/23 01/22/25 Margarita Reyes APRN AIRLINE CAPTAIN [address] [place] [address] Assigned PCP 01/23/25 documented as of this encounter
--- OUTSIDE RECORDS SUMMARY | 2025-02-17 19:39 | XMS_ITS | Encounter Summary ---
Author Organization [place] Address [address] [place] [address] Care Team Providers Care Charge Weigher Name Role Phone Shant Bae MD Unavailable [phone] Shant Bae MD Unavailable [phone] Maxine Greene PA-C Primary Care Provider [phone] Maxine Greene PA-C Unavailable [phone] Margarita Reyes APRN SAMPLE PATTERNMAKER Unavailable Encounter Details Date Type Department Care Team (Late st Contact Info) Description 03/21/2024 MyC Medical Advice [facility] [address] [place] [address] Lucia Mckinney RN Social History Tobacco Use Types Packs/Day [...] week 07/06/2023 How often do you attend [facility] or confucianist services? 1 to 4 times per year 07/06/2023 Do you belong to any clubs o r organizations such as evangelical groups, unions, fraternal or athletic groups, or [...] Answer Date Recorded PHQ-2 Score 0 11/29/2022 [facility] - Occupational Stress [...] Exercise per Session Not on file 07/06/2023 [place] Depression Scale Answer Date Recorded [place] Depression Score 0 01/05/2020 Last EPDS Self [...] in an abandoned building, in an overnight penitentiary, or couch-surfing.) Patient refused 07/06/2023 Are you [...] documented as of this encounter Care Teams Charge Weigher Relationship Specialty Start Date End Date Maxine Greene PA-C [address] [place] [address] PCP - General Family Medicine 07/06/23 Shant Bae MD [address] [facility] [place] [address] Otolaryngology 11/29/22 Shant Bae MD [address] [facility] [place] [address] Assigned Surgical Provider 01/08/23 07/24/24 Maxine Greene PA-C [address] [place] [address] Assigned PCP 07/09/23 01/22/25 Margarita Reyes APRN [facility] [address] [place] [address] Assigned PCP 01/23/25 documented as of this encounter
--- OUTSIDE RECORDS SUMMARY | 2025-02-17 19:39 | XMS_ITS | Encounter Summary ---
Author Organization [place] Address [address] [place] [address] Care Team Providers Care Billing Collections Specialist Name Role Phone No Ref-Primary, Physician Primary Care Provider [facility] Primary Care Provide r Monica Farnsworth PORTER LUGGAGE MARINE PIPEFITTER Primary Care Provider + Monica Farnsworth APRN MARINE PIPEFITTER Unavailable [phone] Monica Farnsworth PORTER LUGGAGE MARINE PIPEFITTER Unavailable [phone] John Brown MD Unavailable [phone] Iron Doyle MD Unavailable [phone] Ale Nuñez MD Unavailable + Shant Bae MD Unavailable No Ref-Primary, Physician Primary Care Provider Shant Bae MD Unavailable Iron Doyle MD Unavailable [phone] Maxine Greene PA-C Primary Care Provider [phone] Maxine Greene PA-C Unavailable [phone] Margarita Reyes APRN MARINE PIPEFITTER Unavailable Reason for Referral * - Closed Specialty Diagnoses / Procedures Referred By Alexandru t Referred To Contact Diagnoses related condition Chano Chandra MD [address] [place] [address] Phone: tel: fax: Referral ID Status Reason Start Date Expiration Date Visits Re quested Visits Authorized [id number] Closed 02/17/2017 02/17/2018 1 1 Comments AMA,IVF-Verifi Encounter Details Date Type Department Care Team (Late st Contact Info) Description 02/17/2017 Orders Only [facility] [place] [address] [place] [address] Chano Chandra MD [address] [place] [address] related condition (Primary Dx) Social History Tobacco [...] Type Priority Associated Diagnoses Orde r Schedule MFM Genetic Counseling Referral Routine related condition 1 Occurrences starting 02/17/2017 until 02/18/2018 documented as of this encounter Results * MFM Nuchal Transluc w US Single (03/28/2017 10:48 [...] 1:10 PM CDT NT ----- Pat. Name: SIOBHANPHILLIPMELLISSA WENDY Study Date: 03/28/2017 10:17am Pat. NO: [id number] Referring MD: CHANO CHANDRA Site: [facility] Ammonia Technician: Zeina Watson RDMS : 1975 Age: 42 ----- INDICATION ----- Nuchal Translucency Assessment with NIPT. METHOD ----- Transabdominal ultrasound examination. ----- Smith . Number of fetuses: 1. DATING ----- Date Details Gest. age GIORGI Conception Conception: IVF Embryo transfer 01/22/2017 IVF / ET: 5 d 12 w + 0 d 10/10/2017 U/S 03/28/2017 based upon CRL 12 w + 2 d 10/08/2017 Assigned dating Dating performed on 03/28/2017, based on the IVF / ET date 12 w + 0 d 10/10/2017 GENERAL EVALUATION ----- Cardiac activity: present. Placenta: posterior. Amniotic fluid: normal amount. BIOMETRY ----- CRL 56.4 mm 12w 2d [place] NT 1.8 mm FHR 161 bpm ANATOMY ----- The following structures could not be adequately visualized: GI tract. The following structures were visualized: Cranium. Face: Nasal bone present. Abdominal wall. Urogenital tract. Arms. Legs. MATERNAL STRUCTURES ----- Cervix Visualized, Appears Closed. [...] but not detected. Procedure Note Deb Corbin, - 03/28/2017 NT ----- Pat. Name:Gene ESCUDEROpresley Date:03/28/2017 10:17am Pat. NO: [id number] MD:CHANO CHANDRA [facility]Zeina Watson RDMS :1975Age:42 ----- INDICATION [...] for gestational age, howeverlimited due to position. us Chano Chandra MD Darleen [facility] ORDERABLES Edited Result - Final documented in this encounter Visit Diagnoses Diagnosis related condition- Primary Unspecified complication of , unspecified as to episode of care related condition Unspecified complication of , unspecified as to episode of care documented in this encounter Care Teams Billing Collections Specialist Relationship Specialty Start Date End Date No Ref-Primary, Physician PCP - General 08/01/17 03/04/18 [facility] RACING MANAGER [place], [place] [id number] PCP - General 03/05/18 05/17/18 Monica Farnsworth APRN MARINE [place] [address] PCP - General Nurse Practitioner - Family 05/18/18 01/03/23 Monica Farnsworth APRN MARINE PIPEFITTER [address] [place] [address] PCP - Assigned PCP 05/19/17 12/05/18 No Ref-Primary, Physician PCP - General 01/04/23 07/05/23 Maxine Greene PA-C [address] [place] [address] PCP - General Family Medicine 07/06/23 Monica Farnsworth APRN MARINE PIPEFITTER [address] [place] [address] Assigned PCP 05/19/17 10/17/21 John Brown MD [address] [facility] [address] [place] [address] Assigned OBGYN Provider 07/25/20 08/22/21 [place] [address] [place] [address] Assigned PCP 01/31/22 04/16/22 Ale Nuñ[place] [address] [place] [address] Assigned PCP 04/17/22 02/25/23 Shant Bae MD [address] [place] [address] Otolaryngology 11/29/22 Shant Bae MD [address] [place] [address] Assigned Surgical Provider 01/08/23 07/24/24 [place] [address] [place] [address] Assigned PCP 02/26/23 07/08/23 Maxine Greene PA-C [address] [place] [address] Assigned PCP 07/09/23 01/22/25 Margarita Reyes APRN MARINE PIPEFITTER [address] [place] [address] Assigned PCP 01/23/25 documented as of this encounter
--- OUTSIDE RECORDS SUMMARY | 2025-02-17 19:39 | XMS_ITS | Encounter Summary ---
Author Organization [place] Address [address] [place] [address] Care Team Providers Care Clinical Trial Manager Name Role Phone Monica Farnsworth APRN ENERGY MANAGER Primary Care Provider + Monica Farnsworth APRN ENERGY MANAGER Unavailable [phone] John Brown MD Unavailable [phone] Iron Doyle MD Unavailable [phone] Ale Nuñez MD Unavailable + Shant Bae MD Unavailable No Ref-Primary, Physician Primary Care Provider Shant Bae MD Unavailable Iron Doyle MD Unavailable [phone] Maxine Greene PA-C Primary Care Provider [phone] Maxine Greene PA-C Unavailable [phone] Margarita Reyes APRN ENERGY MANAGER Unavailable Reason for Visit * Reason Comments Genetic Counseling AMA Ultrasound AMA Encounter Details Date Type Department Care Team (Late st Contact Info) Description 09/18/2019 PRE VISIT [facility] [place] [address] [facility] [address] [place] [address] Korin Dockery, RN Genetic Counseling [...] Total Score: 0 11/12/19 18 8:03 AM BARN AND PROPERTY MANAGER documented as of this encounter Care Teams Clinical Trial Manager Relationship Specialty Start Date End Date Monica Farnsworth APRN ENERGY MANAGER PCP - General Nurse Practitioner - Family 05/18/18 01/03/23 No Ref-Primary, Physician PCP - General 01/04/23 07/05/23 Maxine Greene PA-C [address] [place] [address] PCP - General Family Medicine 07/06/23 Monica Farnsworth APRN ENERGY MANAGER [address] [place] [address] Assigned PCP 05/19/17 10/17/21 John Brown MD [address] [address] Assigned OBGYN Provider 07/25/20 08/22/21 [place] [address] [place] [address] Assigned PCP 01/31/22 04/16/22 Ale Nuñez [place] [address] [place] [address] Assigned PCP 04/17/22 02/25/23 Shant Bae MD [address] [facility] [address] Otolaryngology 11/29/22 Shant Bae MD [address] [place] [address] Assigned Surgical Provider 01/08/23 07/24/24 [place] [address] [facility] [place] [address] Assigned PCP 02/26/23 07/08/23 Maxine Greene PA-C [address] [place] [address] Assigned PCP 07/09/23 01/22/25 Margarita Reyes APRN ENERGY MANAGER [address] [facility] [place] [place] [place] [address] Assigned PCP 01/23/25 documented as of this encounter
--- OUTSIDE RECORDS SUMMARY | 2025-02-17 19:39 | XMS_ITS | Encounter Summary ---
Author Organization [place] Address [address] [place] [address] Care Team Providers Care Engineering Mechanic Name Role Phone No Ref-Primary, Physician Primary Care Provider [facility] Primary Care Provide r Monica Farnsworth COORDINATING PRODUCER AIRPORT OPERATIONS SUPERVISOR Primary Care Provider + Monica Farnswotrh COORDINATING PRODUCER AIRPORT OPERATIONS SUPERVISOR Unavailable [phone] Monica Farnsworth COORDINATING PRODUCER AIRPORT OPERATIONS SUPERVISOR Unavailable [phone] John Brown MD Unavailable [phone] Iron Doyle MD Unavailable Ale Nuñez MD Unavailable + Shant Bae MD Unavailable No Ref-Primary, Physician Primary Care Provider Shant Bae MD Unavailable Iron Doyle MD Unavailable [phone] Maxine Greene PA-C Primary Care Provider [phone] Maxine Greene PA-C Unavailable [phone] Margarita Reyes APRN AIRPORT OPERATIONS SUPERVISOR Unavailable Encounter Details Date Type Department Care Team (Late st Contact Info) Description 06/01/[address] [facility] [address] [place] [address] [address] [place] [address] Alyx Thomas MD [address] [facility] 700 [place] [address] Social History Tobacco Use Types Packs/Day Years [...] Miscellaneous Notes * Telephone Encounter - Alie hTompson MD - 06/01/2017 11:07 AM CDT Can [...] on filedocumented in this encounter Care Teams Engineering Mechanic Relationship Specialty Start Date End Date No Ref-Primary, Physician PCP - General 08/01/17 03/04/18 [facility] FINISHING [place] [address] PCP - General 03/05/18 05/17/18 Monica Farnsworth APRN AIRPORT OPERATIONS SUPERVISOR FINISHING [place] [address] PCP - General Nurse Practitioner - Family 05/18/18 01/03/23 Monica Farnsworth APRN AIRPORT OPERATIONS SUPERVISOR [address] [place] [address] PCP - Assigned PCP 05/19/17 12/05/18 No Ref-Primary, Physician PCP - General 01/04/23 07/05/23 Maxine Greene PA-C [address] [place] [address] PCP - General Family Medicine 07/06/23 Monica Farnsworth APRN AIRPORT OPERATIONS SUPERVISOR [address] [facility] [place] [address] Assigned PCP 05/19/17 10/17/21 John Brown MD [address] [facility] 100 [place], [place] 712067 Assigned OBGYN Provider 07/25/20 08/22/21 [place] [address] [place], [place] [address] Assigned PCP 01/31/22 04/16/22 Ale Nuñ[place] [address] [place], [place] [address] Assigned PCP 04/17/22 02/25/23 Shant Bae MD 6[address] [facility] [place] 284192 Otolaryngology 11/29/22 Shant Bae MD [address] [facility] [place] 295[place] Assigned Surgical Provider 01/08/23 07/24/24 [place] [address] [place], [place] [address] Assigned PCP 02/26/23 07/08/23 Maxine Greene PA-C [address] [place] [address] Assigned PCP 07/09/23 01/22/25 Margarita Reyes APRN [facility] [address] [place], [place] [address] Assigned PCP 01/23/25 documented as of this encounter
--- OUTSIDE RECORDS SUMMARY | 2025-02-17 19:39 | XMS_ITS | Encounter Summary ---
Author Organization [place] Address [address] [place] [address] Care Team Providers Care Clinical Education Assistant Name Role Phone No Ref-Primary, Physician Primary Care Provider [facility] Primary Care Provide r Monica Farsnworth TRUST VAULT CUSTODIAN APPLICATION DEVELOPMENT PROJECT MANAGER Primary Care Provider + Monica Farnsworth TRUST VAULT CUSTODIAN APPLICATION DEVELOPMENT PROJECT MANAGER Unavailable [phone] Monica Farnsworth TRUST VAULT CUSTODIAN APPLICATION DEVELOPMENT PROJECT MANAGER Unavailable [phone] John Brown MD Unavailable [phone] Iron Doyle MD Unavailable [phone] Ale Nuñez MD Unavailable + Shant Bae MD Unavailable [phone] No Ref-Primary, Physician Primary Care Provider Shant Bae MD Unavailable Iron Doyle MD Unavailable [phone] Maxine Greene PA-C Primary Care Provider [phone] Maxine Greene PA-C Unavailable [phone] Margarita Reyes APRN APPLICATION DEVELOPMENT PROJECT MANAGER Unavailable Encounter Details Date Type Department Care Team (Late st Contact Info) Description 04/29/2017 MyC Medical Advice [facility] [address] [place] [address] Alyx Thomas MD [address] [facility] 700 [place] [address] Social History Tobacco Use Types Packs/Day Years [...] on filedocumented in this encounter Care Teams Clinical Education Assistant Relationship Specialty Start Date End Date No Ref-Primary, Physician PCP - General 08/01/17 03/04/18 [facility] [place] [address] PCP - General 03/05/18 05/17/18 Monica Farnsworth APRN APPLICATION DEVELOPMENT [place] [address] PCP - General Nurse Practitioner - Family 05/18/18 01/03/23 Monica Farnsworth APRN APPLICATION DEVELOPMENT PROJECT MANAGER [address] [place] [address] PCP - Assigned PCP 05/19/17 12/05/18 No Ref-Primary, Physician PCP - General 01/04/23 07/05/23 Maxine Greene PA-C 24[address] [place] [address] PCP - General Family Medicine 07/06/23 Javad Monica TRUST VAULT CUSTODIAN APPLICATION DEVELOPMENT PROJECT MANAGER [address] [place] [address] Assigned PCP 05/19/17 10/17/21 John Brown MD [address] [facility] [address] 100 [place], [place] 111487 Assigned OBGYN Provider 07/25/20 08/22/21 [place] [address] [place], [place] 7[address]47[address] Assigned PCP 01/31/22 04/16/22 Ale Nuñ[place] [address] [place] [address] Assigned PCP 04/17/22 02/25/23 Shant Bae MD 6341 [place], [place] 98[address]92 Otolaryngology 11/29/22 Shant Bae MD 6341 [place] [address] Assigned Surgical Provider 01/08/23 07/24/24 [place] [address] [place], [place] 11192124 Assigned PCP 02/26/23 07/08/23 Maxine Greene PA-C 325[address] [place] [address] Assigned PCP 07/09/23 01/22/25 Margarita Reyes APRN APPLICATION DEVELOPMENT PROJECT MANAGER [address] [place] [address] Assigned PCP 01/23/25 documented as of this encounter
--- OUTSIDE RECORDS SUMMARY | 2025-02-17 19:39 | XMS_ITS | Encounter Summary ---
Author Organization [facility] Address [address] [place] [address] Care Team Providers Care Research And Evaluation Analyst Name Role Phone No Ref-Primary, Physician Primary Care Provider [facility] Primary Care Provide r Monica Farnsworth STENOGRAPHER SECRETARY DEFENCE FORCE SENIOR OFFICER Primary Care Provider + Monica Farnsworth STENOGRAPHER SECRETARY DEFENCE FORCE SENIOR OFFICER Unavailable [phone] Monica Farnsworth STENOGRAPHER SECRETARY DEFENCE FORCE SENIOR OFFICER Unavailable [phone] John Brown MD Unavailable [phone] Iron Doyle MD Unavailable [phone] Ale Nuñez MD Unavailable + Shant Bae MD Unavailable No Ref-Primary, Physician Primary Care Provider Shant Bae MD Unavailable Iron Doyle MD Unavailable [phone] Maxine Greene PA-C Primary Care Provider [phone] Maxine Greene PA-C Unavailable [phone] Margarita Reyes APRN DEFENCE FORCE SENIOR OFFICER Unavailable Encounter Details Date Type Department Care Team (Late st Contact Info) Description 05/30/2017 MyC Medical Advice [facility] [address] [place] [address] Alyx Thomas MD [address] [email or web address] 700 [place] [address] Social History Tobacco Use Types Packs/Day Years [...] on filedocumented in this encounter Care Teams Research And Evaluation Analyst Relationship Specialty Start Date End Date No Ref-Primary, Physician PCP - General 08/01/17 03/04/18 [facility] [place] [address] PCP - General 03/05/18 05/17/18 Monica Farnsworth APRN DEFENCE [place] [address] PCP - General Nurse Practitioner - Family 05/18/18 01/03/23 Monica Farnsworth APRN DEFENCE FORCE SENIOR OFFICER [address] [place] [address] PCP - Assigned PCP 05/19/17 12/05/18 No Ref-Primary, Physician PCP - General 01/04/23 07/05/23 Maxine Greene PA-C 04369 [place] [address] PCP - General Family Medicine 07/06/23 Javad Monica STENOGRAPHER SECRETARY DEFENCE FORCE SENIOR OFFICER [address] [place] [address] Assigned PCP 05/19/17 10/17/21 John Brown MD [address] [facility] [address] 100 [place], [place] 389597 Assigned OBGYN Provider 07/25/20 08/22/21 [place] [address] [place], [place] 0966[address] Assigned PCP 01/31/22 04/16/22 Ale Nuñ[place] [address] [place] [address] Assigned PCP 04/17/22 02/25/23 Shant Bae MD 6341 [place], [place] 074002 Otolaryngology 11/29/22 Shant Bae MD 6341 [place] [address] Assigned Surgical Provider 01/08/23 07/24/24 [place] [address] [place], [place] [address] Assigned PCP 02/26/23 07/08/23 Maxine Greene PA-C [address]863 [place] [address] Assigned PCP 07/09/23 01/22/25 Margarita Reyes APRN DEFENCE FORCE SENIOR OFFICER [address] [place] [address] Assigned PCP 01/23/25 documented as of this encounter
--- OUTSIDE RECORDS SUMMARY | 2025-02-17 19:39 | XMS_ITS | Encounter Summary ---
Author Organization [facility] Address [address] [place] [address] Care Team Providers Care Sales And Marketing Associate Name Role Phone Monica Farnsworth APRN INSPECTOR CONVEYOR LINE Primary Care Provider + Monica Farnsworth APRN INSPECTOR CONVEYOR LINE Unavailable [phone] John Brown MD Unavailable [phone] Iron Doyle MD Unavailable [phone] Ale Nuñez MD Unavailable + Shant Bae MD Unavailable No Ref-Primary, Physician Primary Care Provider Shant Bae MD Unavailable Iron Doyle MD Unavailable Maxine Greene PA-C Primary Care Provider [phone] Maxine Greene PA-C Unavailable [phone] Margarita Reyes APRN INSPECTOR CONVEYOR LINE Unavailable Encounter Details Date Type Department Care Team (Late st Contact Info) Description 12/31/2019 MyC Medical Advice [facility] [address] [facility], [address] [place] [address] Wendy Sosa CMA Social History [...] Total Score: 0 11/12/19 18 8:03 AM DIRECTOR OF VOCATIONAL TRAINING documented as of this encounter Care Teams Sales And Marketing Associate Relationship Specialty Start Date End Date Monica Farnsworth APRN INSPECTOR CONVEYOR LINE PCP - General Nurse Practitioner - Family 05/18/18 01/03/23 No Ref-Primary, Physician PCP - General 01/04/23 07/05/23 Maxine Greene PA-C [address] [place] [address] PCP - General Family Medicine 07/06/23 Monica Farnsworth APRN INSPECTOR CONVEYOR LINE [address] [place] [address] Assigned PCP 05/19/17 10/17/21 John Brown MD [address] [facility] [address] 100 [place] [address] Assigned OBGYN Provider 07/25/20 08/22/21 [place] [address] [facility] [place] [address] Assigned PCP 01/31/22 04/16/22 Ale Nuñez [place] [address] [facility] [place] [address] Assigned PCP 04/17/22 02/25/23 Shant Bae MD 6341 [place] [address] Otolaryngology 11/29/22 Shant Bae MD 6341 [place] [address] Assigned Surgical Provider 01/08/23 07/24/24 [place] [address] [facility] [place] [address] Assigned PCP 02/26/23 07/08/23 Maxine Greene PA-C [address] [facility] [place] [address] Assigned PCP 07/09/23 01/22/25 Margarita Reyes APRN INSPECTOR CONVEYOR LINE [address] [facility] [place] [address] Assigned PCP 01/23/25 documented as of this encounter
--- OUTSIDE RECORDS SUMMARY | 2025-02-17 19:39 | XMS_ITS | Encounter Summary ---
Author Organization [place] Address [address] [place] [address] Care Team Providers Care Geothermal Production Manager Name Role Phone Monica Farnsworth APRN TENTMAKER Primary Care Provider + Monica Farnsworth APRN TENTMAKER Unavailable [phone] John Brown MD Unavailable [phone] Iron Doyle MD Unavailable [phone] Ale Nuñez MD Unavailable + Shant Bae MD Unavailable No Ref-Primary, Physician Primary Care Provider Shant Bae MD Unavailable Iron Doyel MD Unavailable [phone] Maxine Greene PA-C Primary Care Provider [phone] Maxine Greene PA-C Unavailable [phone] Margarita Reyes APRN TENTMAKER Unavailable Reason for Visit * Reason Onset Date Comments Hilaryhart Communication 12/20/2018 Encounter Details Date Type Department Care Team (Late st Contact Info) Description 12/20/2018 MyC Medical Advice [facility] [address] [place] [address], [address] [place] [address] Monica Farnsworth APRN CNP [address] [place] [address] [employer]omi [employer] Social History Tobacco Use Types Packs/Day Years Used Date Smoking Tobacco: Never Smokeless Tobacco: Never Alcohol Use Standard Drinks/Week Comments Yes 0 (1 standard drink = 0.6 oz pur e alcohol) social PHQ-2 Answer Date Recorded PHQ-2 Score 0 10/11/2018 Comments No Sex and Gender Information Value Date Recorded Sex Assigned at Not on file Legal Sex Female 3:20 PM CDT Gender Identity Not on file Sexual Orientation Not on file documented as of this encounter Miscellaneous Notes * Telephone Encounter - Monica Farnswroth APRN CNP - 12/20/2018 4:38 PM CDT [...] titer. Thank you. Simran Nation RN -- [facility] * Telephone Encounter - Monica Farnsworth APRN [...] and speak with her about this. Monica Strong TENTMAKER * Telephone Encounter - Simran Nation RN - 12/20/2018 1:52 PM CDT PCP: Please review below. I looked on the CDC's website and I dont see a lot about the time LIMITS of the second dose, just the minimum amount of time that needs to pass before dose 2 can be given. Simran Nation RN -- [facility] Workforce documented in this encounter Plan of Treatment Not on file documented as of this encounter Visit Diagnoses Not on filedocumented in this encounter Additional Health Concerns Assessment Noted Time PHQ-9 Depression Total Score: 0 11/12/19 18 8:03 AM MACHINE DRILLER documented as of this encounter Care Teams Geothermal Production Manager Relationship Specialty Start Date End Date Monica Farnsworth APRN TENTMAKER PCP - General Nurse Practitioner - Family 05/18/18 01/03/23 No Ref-Primary, Physician PCP - General 01/04/23 07/05/23 Maxine Greene, PANereydaC [address] [place] [address] PCP - General Family Medicine 07/06/23 Monica Farnsworth APRN TENTMAKER [address] [place] [address] Assigned PCP 05/19/17 10/17/21 John Brown MD [address] [facility] 100 [place] [address] Assigned OBGYN Provider 07/25/20 08/22/21 [place] [address] [place] [address] Assigned PCP 01/31/22 04/16/22 Ale Nuñez [place] [address] [place] [address] Assigned PCP 04/17/22 02/25/23 Shant Bae MD 6341 [facility] [place] [address] Otolaryngology 11/29/22 Shant Bae MD 6341 [place] [address] Assigned Surgical Provider 01/08/23 07/24/24 [place] [address] [place] [address] Assigned PCP 02/26/23 07/08/23 Maxine Greene PA-C [address] [place] [address] Assigned PCP 07/09/23 01/22/25 Margarita Reyes APRN TENTMAKER [address] [place], [place] [address] Assigned PCP 01/23/25 documented as of this encounter
--- OUTSIDE RECORDS SUMMARY | 2025-02-17 19:40 | XMS_ITS | Encounter Summary ---
Author Organization [place] Address [address] [place] [address]. [place] [address] Care Team Providers Care Basket Hand Braider Name Role Phone Monica Farnsworth APRN SUPERVISOR PRODUCT INSPECTION Primary Care Provider + Monica Farnsworth APRN SUPERVISOR PRODUCT INSPECTION Unavailable John Brown MD Unavailable [phone] Iron Doyle MD Unavailable Ale Nuñez MD Unavailable + Shant Bae MD Unavailable No Ref-Primary, Physician Primary Care Provider Shant Bae MD Unavailable Iron Doyle MD Unavailable [phone] Maxine Greene PA-C Primary Care Provider [phone] Maxine Greene PA-C Unavailable [phone] Margarita Reyes APRN SUPERVISOR PRODUCT INSPECTION Unavailable Encounter Details Date Type Department Care Team (Late st Contact Info) Description 01/15/2020 Orders Only [facility] [address] [place] [address] Julia Perez, RN Placenta accreta in third trimester (Primary Dx) Social History Tobacco Use Types Packs/Day Years Used Date Smoking Tobacco: Never Smokeless Tobacco: Never Alcohol Use Standard Drinks/Week Comments Not Currently 0 (1 standard drink = 0.6 oz pur e alcohol) social PHQ-2 Answer Date Recorded PHQ-2 Score 0 10/11/2018 Cheriton Depression Scale Answer Date Recorded Cheriton Depression Score 0 01/05/2020 Last EPDS Self Harm Result Not on file 01/04 Comments No Sex and Gender Information Value [...] Total Score: 0 11/12/19 18 8:03 AM CHOIR MEMBER documented as of this encounter Care Teams Basket Hand Braider Relationship Specialty Start Date End Date Monica Farnsworth APRN SUPERVISOR PRODUCT INSPECTION PCP - General Nurse Practitioner - Family 05/18/18 01/03/23 No Ref-Primary, Physician PCP - General 01/04/23 07/05/23 Maxine Greene PA-C [address] [place] [address] PCP - General Family Medicine 07/06/23 Monica Farnsworth APRN SUPERVISOR PRODUCT INSPECTION [address] [address] Assigned PCP 05/19/17 10/17/21 John Brown MD [address] [facility] [address] [place] [address] Assigned OBGYN Provider 07/25/20 08/22/21 [place] [address] [place] [address] Assigned PCP 01/31/22 04/16/22 Ale Nuñez [place] [address] [facility] [place] [address] Assigned PCP 04/17/22 02/25/23 Shant Bae MD 6341 [place] [address] Otolaryngology 11/29/22 Shant Bae MD 6341 [place] [address] Assigned Surgical Provider 01/08/23 07/24/24 [place] [address] [place] [address] Assigned PCP 02/26/23 07/08/23 Maxine Greene PA-C [address] [place] [address] Assigned PCP 07/09/23 01/22/25 Margarita Reyes APRN SUPERVISOR PRODUCT INSPECTION [address] [place] [address] Assigned PCP 01/23/25 documented as of this encounter
--- OUTSIDE RECORDS SUMMARY | 2025-02-17 19:40 | XMS_ITS | Encounter Summary ---
Author Organization [place] Address [address] [place] [address] Care Team Providers Care Chief Of Pediatric Urology Name Role Phone No Ref-Primary, Physician Primary Care Provider [facility] Primary Care Provide r Monica Farnsworth COMMERCIAL HOUSEKEEPER PEOPLE MANAGER Primary Care Provider + Monica Farnsworth COMMERCIAL HOUSEKEEPER PEOPLE MANAGER Unavailable Monica Farnsworth COMMERCIAL HOUSEKEEPER PEOPLE MANAGER Unavailable [phone] John Brown MD Unavailable [phone] Iron Doyle MD Unavailable [phone] Ale Nuñez MD Unavailable + Shant Bae MD Unavailable No Ref-Primary, Physician Primary Care Provider Shant Bae MD Unavailable Iron Doyle MD Unavailable [phone] Maxine Greene PA-C Primary Care Provider [phone] Maxine Greene PA-C Unavailable [phone] Maragrita Reyes APRN PEOPLE MANAGER Unavailable Encounter Details Date Type Department Care Team (Late st Contact Info) Description 10/14/2017 MyC Medical Advice [facility] [address] [place] [address] Alyx Thomas MD [address] [facility] 700 [place] [address] Social History Tobacco Use Types Packs/Day Years Used Date Smoking Tobacco: Never Smokeless Tobacco: Never Alcohol Use Standard Drinks/Week Comments Yes 0 (1 standard drink = 0.6 oz pur e alcohol) social Comments No Sex and Gender Information Value [...] Total Score: 4 09/13/20 17 10:16 AM SOCIAL SCIENTIST documented as of this encounter Care Teams Chief Of Pediatric Urology Relationship Specialty Start Date End Date No Ref-Primary, Physician PCP - General 08/01/17 03/04/18 [facility] FIRE EATER [place], [place] [address] PCP - General 03/05/18 05/17/18 Monica Farnsworth APRN PEOPLE MANAGER [place] [address] PCP - General Nurse Practitioner - Family 05/18/18 01/03/23 Monica Farnsworth APRN PEOPLE MANAGER [address] [place] [address] PCP - Assigned PCP 05/19/17 12/05/18 No Ref-Primary, Physician PCP - General 01/04/23 07/05/23 Maxine Greene PA-C [address] [place] [address] PCP - General Family Medicine 07/06/23 Monica Farnsworth APRN PEOPLE MANAGER [address] [place] [address] Assigned PCP 05/19/17 10/17/21 John Brown MD [address] [facility] 100 [place] [address] Assigned OBGYN Provider 07/25/20 08/22/21 [place] [address] [facility] [place] [place] [address] Assigned PCP 01/31/22 04/16/22 Ale Nuñ[place] [address] [facility] [place] [place] [address] Assigned PCP 04/17/22 02/25/23 Shant Bae MD 6341 [place] [address] Otolaryngology 11/29/22 Shant Bae MD 6341 [place] [address] Assigned Surgical Provider 01/08/23 07/24/24 [place] [address] [place] [address] Assigned PCP 02/26/23 07/08/23 Maxine Greene PA-C [address] [place] [address] Assigned PCP 07/09/23 01/22/25 Margarita Reyes APRN [facility] [address] [place] [address] Assigned PCP 01/23/25 documented as of this encounter
--- OUTSIDE RECORDS SUMMARY | 2025-02-17 19:40 | XMS_ITS | Encounter Summary ---
Author Organization [place] Address [address] [place] [address] Care Team Providers Care Razor Sharpener Name Role Phone No Ref-Primary, Physician Primary Care Provider [facility] Primary Care Provide r Monica Farnsworth MOVIE PRODUCER PARTY PLAN SALES AGENT Primary Care Provider + Monica Farnsworth MOVIE PRODUCER PARTY PLAN SALES AGENT Unavailable Monica Farnsworth MOVIE PRODUCER PARTY PLAN SALES AGENT Unavailable [phone] John Brown MD Unavailable [phone] Iron Doyle MD Unavailable [phone] Ale Nuñez MD Unavailable + Shant Bae MD Unavailable No Ref-Primary, Physician Primary Care Provider Shant aBe MD Unavailable Iron Doyle MD Unavailable [phone] Maxine Greene PA-C Primary Care Provider [phone] Maxine Greene PA-C Unavailable [phone] Margarita Reyes APRN PARTY PLAN SALES AGENT Unavailable Encounter Details Date Type Department Care Team (Late st Contact Info) Description 09/07/[address] [facility] [address] [place] [address] Alyx Thomas MD [address] [facility] 700 [place] [address] Social History Tobacco Use Types Packs/Day Years [...] on filedocumented in this encounter Care Teams Razor Sharpener Relationship Specialty Start Date End Date No Ref-Primary, Physician PCP - General 08/01/17 03/04/18 [facility] BABY [place] [address] PCP - General 03/05/18 05/17/18 Monica Farnsworth APRN PARTY [place] [address] PCP - General Nurse Practitioner - Family 05/18/18 01/03/23 Monica Farnsworth APRN PARTY PLAN SALES AGENT [address] [place] [address] PCP - Assigned PCP 05/19/17 12/05/18 No Ref-Primary, Physician PCP - General 01/04/23 07/05/23 Maxine Greene PA-C 25[address] [place] [address] PCP - General Family Medicine 07/06/23 Javad Monica MOVIE PRODUCER PARTY PLAN SALES AGENT [address] [place] [address] Assigned PCP 05/19/17 10/17/21 John Brown MD [address] [facility] [address] [place], [place] [address] Assigned OBGYN Provider 07/25/20 08/22/21 [place] [address] [place], [place] [address] Assigned PCP 01/31/22 04/16/22 Ale Nuñ[place] [address] [place] [address] Assigned PCP 04/17/22 02/25/23 Shant Bae MD 6341 [place], [place] 08[address] Otolaryngology 11/29/22 Shant Bae MD 6341 [place] [address] Assigned Surgical Provider 01/08/23 07/24/24 [place] [address] [place], [place] [address] Assigned PCP 02/26/23 07/08/23 Maxine Greene PA-C [address] [place] [address] Assigned PCP 07/09/23 01/22/25 Margarita Reyes APRN PARTY PLAN SALES AGENT [address] [place] [address] Assigned PCP 01/23/25 documented as of this encounter
--- OUTSIDE RECORDS SUMMARY | 2025-02-17 19:40 | XMS_ITS | Encounter Summary ---
Author Organization [facility] Address [address] [place] [address] Care Team Providers Care Insurance Verification Specialist Name Role Phone No Ref-Primary, Physician Primary Care Provider [facility] Primary Care Provide r Monica Farnsworth PROJECT SPECIALIST MOP WORKER Primary Care Provider + Monica Farnsworth PROJECT SPECIALIST MOP WORKER Unavailable Monica Farnsworth PROJECT SPECIALIST MOP WORKER Unavailable [phone] John Brown MD Unavailable [phone] Iron Doyle MD Unavailable [phone] Ale Nuñez MD Unavailable + Shant Bae MD Unavailable No Ref-Primary, Physician Primary Care Provider Shant Bae MD Unavailable Iron Doyle MD Unavailable [phone] Maxine Greene PA-C Primary Care Provider [phone] Maxine Greene PA-C Unavailable [phone] Margarita Reyes APRN MOP WORKER Unavailable Encounter Details Date Type Department Care Team (Late st Contact Info) Description 10/06/2017 MyC Medical Advice [facility] [address] [place] [address] Alyx Thomas MD [address] [facility] 700 [place] [address] Social History Tobacco Use Types Packs/Day Years [...] Total Score: 4 09/13/20 17 10:16 AM AIRCONDITIONING ENGINEER documented as of this encounter Care Teams Insurance Verification Specialist Relationship Specialty Start Date End Date No Ref-Primary, Physician PCP - General 08/01/17 03/04/18 [facility] SAND CUTTING MACHINE OPERATOR [place], [place] [id number] PCP - General 03/05/18 05/17/18 Monica Farnsworth APRN MOP WORKER SAND C[place]TING [place] [address] PCP - General Nurse Practitioner - Family 05/18/18 01/03/23 Monica Farnsworth APRN MOP WORKER [address] [place] [address] PCP - Assigned PCP 05/19/17 12/05/18 No Ref-Primary, Physician PCP - General 01/04/23 07/05/23 Maxine Greene PA-C [address] [place] [address] PCP - General Family Medicine 07/06/23 Monica Farnsworth APRN MOP WORKER [address] [place] [address] Assigned PCP 05/19/17 10/17/21 John Brown MD [address] [facility] 100 [place] [address] Assigned OBGYN Provider 07/25/20 08/22/21 [place] [address] [facility] [place] [address] Assigned PCP 01/31/22 04/16/22 Ale Nuñ[place] [address] [facility] [place] [address] Assigned PCP 04/17/22 02/25/23 Shant Bae MD [address] [place] [address] Otolaryngology 11/29/22 Shant Bae MD [address] [place] [address] Assigned Surgical Provider 01/08/23 07/24/24 [place] [address] [place] [address] Assigned PCP 02/26/23 07/08/23 Maxine Greene PA-C [address] [place] [address] Assigned PCP 07/09/23 01/22/25 Margarita Reyes APRN [facility] [address] [place] [address] Assigned PCP 01/23/25 documented as of this encounter
--- OUTSIDE RECORDS SUMMARY | 2025-02-17 19:40 | XMS_ITS | Clinical Summary ---
Author Organization [facility] Address [address] [place] [address] Care Team Providers Care Chief Executive Or Managing Director Name Role Phone Self-Referral, Patient Primary Care Provider Source Comments You are receiving this document as you are listed as the primary care provider,follow-up provider, or the patient has been referred to you for consultation.This is in compliance with the Medicare and[place] EHR Incentive Program,which states Providers who transition their patient to another setting of careor provider of care or refers their patient to another provider of care shouldprovide summary care record for each transition of care or referral. [facility] Allergies No known active allergies Medications * This document contains information received from the source organization and may not represent a complete record from that organization. levothyroxine (AKA SYNTHROID) 25 MCG tablet Take 1 tablet by mouth daily (every 24 hours). LW Addl Instr:Iindicated for: Hypothyroidism 90 3 01/20/20 10 Active fexofenadine (AKA EVRITO) 180 MG tablet Take 1 tablet by mouth daily as needed. LW Addl Instr:Indicated for: Allergies 90 3 01/20/20 10 Active unknown medication Indications: PN: 12/08/19 11 Active COMPOUNDED PRESCRIPTION LW Addl Instr:Atropine 0.2% + Estradioil 0.05% + Testosterone 0.05 % in Acid Mantle (1:1) Apply a fingertip amount to the affected area BID. 30 1 09/02/20 10 Active Social History Tobacco Use Types Packs/Day Years Used Date Smoking Tobacco: Never Comments Unknown Sex and Gender Information Value Date Recorded Sex Assigned at Not on file Legal Sex Female 1:55 AM CDT Gender Identity Not on file Sexual Orientation Not on file Last Filed Vital Signs Vital Sign Reading Time Taken Comments Blood Pressure 106/72 12/07/2010 11:30 AM MANAGER MAC Pulse 64 09/02/2010 10:56 AM MANAGER MAC Temperature - - Respiratory Rate 16 09/02/2010 10:56 AM MANAGER MAC Oxygen Saturation - - Inhaled Oxygen Concentration - - Weight - - Height - - Body Mass Index - - Plan of Treatment Health Maintenance Due Date Last Done Comments Cervical Cancer Screening Due 1977 Colon Cancer Screening Plan Due 1977 Hep C Screening (Preventive Services) 1977 Mammogram 1977 HIV Screening (Preventive Services) 1993 Adult Preventive Visit 1995 HepB Vaccine (1) 02/25/1996 Cholesterol 2022 COVID-19 Vaccine ( season) 2024 01/07/2021, 12/05/2020 Influenza Vaccine (Season Ended) 2025 07/14/2020, 08/01/2019, 07/26/2018, Additional history exists Zoster/Shingles Vaccine (1 of 2) 2027 DTaP/Tdap/Td Vaccine (6 - Tdap) 11/26/2029 11/26/2019, 08/01/2017, 04/13/2013, Additional history exists HepA Vaccine Aged Out No longer eligi ble based on patient's age to complete this topic Hib Vaccine Aged Out No longer eligi ble based on patient's age to complete this topic IPV (Polio) Vaccine Aged Out No longe r eligible based on patient's age to complete this topic MCV4 Vaccine Aged Out No longer eligi ble based on patient's age to complete this topic Meningococcal B Vaccine Aged Out No l onger eligible based on patient's age to complete this topic Pneumococcal Vaccine Aged Out No long er eligible based on patient's age to complete this topic Insurance MEDICA CHOICE Care Teams Chief Executive Or Managing Director Relationship Specialty Start Date End Date Self-Referral, Patient, [place] [address] PCP - General 06/13/21
--- OUTSIDE RECORDS SUMMARY | 2025-02-17 19:40 | XMS_ITS | Encounter Summary ---
Author Organization [facility] Address [address] [place] [address] Care Team Providers Care Grants And Contracts Assistant Name Role Phone No Ref-Primary, Physician Primary Care Provider [facility] Primary Care Provide r Monica Farnsworth ASBESTOS SHINGLE INSPECTOR SEAM SEWER Primary Care Provider + Monica Farnsworth ASBESTOS SHINGLE INSPECTOR SEAM SEWER Unavailable Monica Farnsworth ASBESTOS SHINGLE INSPECTOR SEAM SEWER Unavailable [phone] John Brown MD Unavailable [phone] Iron Doyle MD Unavailable [phone] Ale Nuñez MD Unavailable + Shant Bae MD Unavailable [phone] No Ref-Primary, Physician Primary Care Provider Shant Bae MD Unavailable Iron Dyole MD Unavailable [phone] Maxine Greene PA-C Primary Care Provider [phone] Maxine Greene PA-C Unavailable [phone] Margarita Reyes APRN SEAM SEWER Unavailable Encounter Details Date Type Department Care Team (Late st Contact Info) Description 09/20/2017 MyC Medical Advice [facility] [address] [place] [address] [address] [place] [address] Alyx Thomas MD [address] [facility] 700 [place] [address] Social History Tobacco Use Types Packs/Day Years [...] Appt scheduled 09/28, 1:30pm. Reyna Goodwin RN-BSN CE CLEANER documented in this encounter Plan of Treatment Not on file documented as of this encounter Visit Diagnoses Not on filedocumented in this encounter Additional Health Concerns Assessment Noted Time PHQ-9 Depression Total Score: 4 09/13/20 10:16 AM OFFICE CLEANER documented as of this encounter Care Teams Grants And Contracts Assistant Relationship Specialty Start Date End Date No Ref-Primary, Physician PCP - General 08/01/17 03/04/18 [facility] CIVIL PRE[place] [address] PCP - General 03/05/18 05/17/18 Monica Farnsworth APRN SEAM SEWER CIVIL PREPAREDNESS COORDINATOR [place] [address] PCP - General Nurse Practitioner - Family 05/18/18 01/03/23 Monica Farnsworth APRN SEAM SEWER [address] [place] [address] PCP - Assigned PCP 05/19/17 12/05/18 No Ref-Primary, Physician PCP - General 01/04/23 07/05/23 Maxine Greene PA-C [address] [place] [address] PCP - General Family Medicine 07/06/23 Monica Farnsworth APRN SEAM SEWER [address] [facility] [place] [address] Assigned PCP 05/19/17 10/17/21 John Brown MD [address] [facility] 100 [place], [place] [address] Assigned OBGYN Provider 07/25/20 08/22/21 [place] [address] [place], [place] [address] Assigned PCP 01/31/22 04/16/22 Ale Nuñ[place] [address] [place], [place] [address] Assigned PCP 04/17/22 02/25/23 Shant Bae MD [address] [facility] [place] [place] [address] Otolaryngology 11/29/22 Shant Bae MD [address] [facility] [place] 231662 Assigned Surgical Provider 01/08/23 07/24/24 [place] [address] [place], [place] [address] Assigned PCP 02/26/23 07/08/23 Maxine Greene PA-C [address] [place] [address] Assigned PCP 07/09/23 01/22/25 Margarita Reyes APRN [facility] [address] [place], [place] [address] Assigned PCP 01/23/25 documented as of this encounter
--- OUTSIDE RECORDS SUMMARY | 2025-02-17 19:40 | XMS_ITS | Encounter Summary ---
Author Organization [place] Address [address] [place] [address] Care Team Providers Care Outside Solar Sales Consultant Name Role Phone Monica Farnsworth APRN BUSBOY Primary Care Provider + Monica Farnsworth APRN BUSBOY Unavailable John Brown MD Unavailable [phone] Iron Doyle MD Unavailable [phone] Ale Nuñez MD Unavailable + Shant Bae MD Unavailable No Ref-Primary, Physician Primary Care Provider Shant Bae MD Unavailable Iron Doyle MD Unavailable [phone] Maxine Greene PA-C Primary Care Provider [phone] Maxine Greene PA-C Unavailable [phone] Margarita Reyes APRN BUSBOY Unavailable Reason for Visit * Reason Onset Date Comments MyChart Communication 10/24/2020 Lab santosi on Encounter Details Date Type Department Care Team (Late st Contact Info) Description 10/24/2020 [facility] [address] [place] [address] John Brown MD [address] [facility] 100 [place] [address] MyChart Communication (Lab question) Social History Tobacco Use Types Packs/Day Years Used Date Smoking Tobacco: Never Smokeless Tobacco: Never Alcohol Use Standard Drinks/Week Comments Not Currently 0 (1 standard drink = 0.6 oz pur e alcohol) social PHQ-2 Answer Date Recorded PHQ-2 Score 0 02/15/2020 [place] Depression Scale Answer Date Recorded [place] Depression Score 0 01/05/2020 Last EPDS Self [...] COVID-19? No / Unsure 10/22/2020 4:00 PM BRUSH AND BROOM CLIPPER documented as of this encounter Miscellaneous Notes [...] next level and advising on target TSH. H AND BROOM CLIPPER * Telephone Encounter - Julia Horne RN - 10/24/2020 8:15 AM CST Please see teot and advise. Pharmacy selected if refilling same dose. Julia Horne RN H AND BROOM CLIPPER documented in this encounter Plan of Treatment Not on file documented as of this encounter Visit Diagnoses Diagnosis Other specified hypothyroidism Hypothyroidism affecting in first trimester documented in this encounter Additional Health Concerns Assessment Noted Time PHQ-9 Depression Total Score: 1 02/15/20 20 3:07 PM CDT documented as of this encounter Care Teams Outside Solar Sales Consultant Relationship Specialty Start Date End Date Monica Farnsworth APRN BUSBOY PCP - General Nurse Practitioner - Family 05/18/18 01/03/23 No Ref-Primary, Physician PCP - General 01/04/23 07/05/23 Maxine Greene PA-C [address] [place] [address] PCP - General Family Medicine 07/06/23 Monica Farnsworth APRN BUSBOY [address] [place] [address] Assigned PCP 05/19/17 10/17/21 John Brown MD [address] [facility] 100 [place] [address] Assigned OBGYN Provider 07/25/20 08/22/21 [place] [address] [place] [address] Assigned PCP 01/31/22 04/16/22 Ale Nuñ[place] [address] [place] [address] Assigned PCP 04/17/22 02/25/23 Shant Bae MD [address] [facility] [place] [address] Otolaryngology 11/29/22 Shant Bae MD [address] [facility] [place] [address] Assigned Surgical Provider 01/08/23 07/24/24 [place] [address] [place] [address] Assigned PCP 02/26/23 07/08/23 Maxine Greene PA-C [address] [place] [address] Assigned PCP 07/09/23 01/22/25 Margarita Reyes APRN BUSBOY [address] [place], [place] [address] Assigned PCP 01/23/25 documented as of this encounter
--- OUTSIDE RECORDS SUMMARY | 2025-02-17 19:40 | XMS_ITS | Encounter Summary ---
Author Organization [facility] Address [address] [place] [address] Care Team Providers Care Neon Technician Name Role Phone Monica Farnsworth APRN ENGINEERING TEAM SUPERVISOR Primary Care Provider + Monica Farnsworth APRN ENGINEERING TEAM SUPERVISOR Unavailable John Brown MD Unavailable [phone] Iron Doyle MD Unavailable [phone] Ale Nuñez MD Unavailable + Shant Bae MD Unavailable No Ref-Primary, Physician Primary Care Provider Shant Bae MD Unavailable Iron Doyle MD Unavailable [phone] Maxine Greene PA-C Primary Care Provider Maxine Greene PA-C Unavailable [phone] Margarita Reyes APRN ENGINEERING TEAM SUPERVISOR Unavailable Encounter Details Date Type Department Care Team (Late st Contact Info) Description 03/27/2020 [facility] [address] [address] Deisi Sánchez MA Social History Tobacco Use Types Packs/Day Years Used Date Smoking Tobacco: Never Smokeless Tobacco: Never Alcohol Use Standard Drinks/Week Comments Not Currently 0 (1 standard drink = 0.6 oz pur e alcohol) social PHQ-2 Answer Date Recorded PHQ-2 Score 0 02/15/2020 [place] Depression Scale Answer Date Recorded [place] Depression Score 0 01/05/2020 Last EPDS Self [...] documented as of this encounter Care Teams Neon Technician Relationship Specialty Start Date End Date Monica Farnsworth APRN ENGINEERING TEAM SUPERVISOR PCP - General Nurse Practitioner - Family 05/18/18 01/03/23 No Ref-Primary, Physician PCP - General 01/04/23 07/05/23 Maxine Greene PA-C [address] [place] [address] PCP - General Family Medicine 07/06/23 Monica Farnsworth APRN ENGINEERING TEAM SUPERVISOR [address] [place] [address] Assigned PCP 05/19/17 10/17/21 John Brown MD [address] [facility] 100 [place] [address] Assigned OBGYN Provider 07/25/20 08/22/21 [place] [address] [place] [address] Assigned PCP 01/31/22 04/16/22 Ale Nuñez [place] [address] [place] [address] Assigned PCP 04/17/22 02/25/23 Shant Bae MD [address] [place] [address] Otolaryngology 11/29/22 Shant Bae MD 6341 [place] [address] Assigned Surgical Provider 01/08/23 07/24/24 [place] [address] [place] [address] Assigned PCP 02/26/23 07/08/23 Maxine Greene PA-C [address] [place] [address] Assigned PCP 07/09/23 01/22/25 Margarita Reyes APRN ENGINEERING TEAM SUPERVISOR [address] [address] [place] [place], [place] [address] Assigned PCP 01/23/25 documented as of this encounter
--- OUTSIDE RECORDS SUMMARY | 2025-02-17 19:40 | XMS_ITS | Encounter Summary ---
Author Organization [facility] Address [address] [place] [address] Care Team Providers Care Associate Professor Of Literacy Name Role Phone No Ref-Primary, Physician Primary Care Provider [facility] Primary Care Provide r Monica Farnsworth RETOUCHER PHOTOENGRAVING TITLE CURATOR Primary Care Provider + Monica Farnsworth RETOUCHER PHOTOENGRAVING TITLE CURATOR Unavailable Monica Farnsworth RETOUCHER PHOTOENGRAVING TITLE CURATOR Unavailable [phone] John Brown MD Unavailable [phone] Iron Doyle MD Unavailable [phone] Ale Nuñez MD Unavailable + Shant Bae MD Unavailable [phone] No Ref-Primary, Physician Primary Care Provider Shant Bae MD Unavailable Iron Doyle MD Unavailable [phone] Maxine Greene PA-C Primary Care Provider [phone] Maxine Greene PA-C Unavailable [phone] Margarita Reyes APRN TITLE CURATOR Unavailable Encounter Details Date Type Department Care Team (Late st Contact Info) Description 07/06/2017 MyC Medical Advice [facility] [address] [place] [address] Alyx Thomas MD [address] [facility] 700 [place] [address] Social History Tobacco Use Types Packs/Day Years [...] on filedocumented in this encounter Care Teams Associate Professor Of Literacy Relationship Specialty Start Date End Date No Ref-Primary, Physician PCP - General 08/01/17 03/04/[address] [facility] CASH [place] [address] PCP - General 03/05/18 05/17/18 Monica Farnsworth [place] [address] PCP - General Nurse Practitioner - Family 05/18/18 01/03/23 Monica Farnsworth APRN TITLE CURATOR [address] [place] [address] PCP - Assigned PCP 05/19/17 12/05/18 No Ref-Primary, Physician PCP - General 01/04/23 07/05/23 Maxine Greene PA-C [address] [place] [address] PCP - General Family Medicine 07/06/23 Javad Monica RETOUCHER PHOTOENGRAVING TITLE CURATOR [address] [place] [address] Assigned PCP 05/19/17 10/17/21 John Brown MD [address] [facility] [address] [place], [place] [address] Assigned OBGYN Provider 07/25/20 08/22/21 [place] [address] [place], [place] [address] Assigned PCP 01/31/22 04/16/22 Ale Nuñ[place] [address] [place] [address] Assigned PCP 04/17/22 02/25/23 Shant Bae MD [address] [place], [place] [address] Otolaryngology 11/29/22 Shant Bae MD [address]341 [place] [address] Assigned Surgical Provider 01/08/23 07/24/24 [place] [address] [place], [place] [address] Assigned PCP 02/26/23 07/08/23 Maxine Greene PA-C [address] [place] [address] Assigned PCP 07/09/23 01/22/25 Margarita Reyes APRN TITLE CURATOR [address] [place] [address] Assigned PCP 01/23/25 documented as of this encounter
--- OUTSIDE RECORDS SUMMARY | 2025-02-17 19:40 | XMS_ITS | Encounter Summary ---
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 Name Role Phone Monica Farnsworth APRN CLAY HOISTER Primary Care Provider + Monica Farnsworth APRN CLAY HOISTER Unavailable [phone] John Brown MD Unavailable [phone] Iron Doyle MD Unavailable [phone] Ale Nuñez MD Unavailable + Shant Bae MD Unavailable No Ref-Primary, Physician Primary Care Provider Shant Bae MD Unavailable Iron Doyle MD Unavailable [phone] Maxine Greene PA-C Primary Care Provider [phone] Maxine Greene PA-C Unavailable [phone] Margarita Reyes APRN CLAY HOISTER Unavailable Reason for Visit * Reason Onset Date Comments Medication Request 04/21/2020 Encounter Details Date Type Department Care Team (Late st Contact Info) Description 04/21/2020 MyC Medical Advice [facility] [address] [place] [address] John Brown MD [address] [facility] [address] [place] [address] Medication Request Social History Tobacco Use Types Packs/Day Years Used Date Smoking Tobacco: Never Smokeless Tobacco: Never Alcohol Use Standard Drinks/Week Comments Not Currently 0 (1 standard drink = 0.6 oz pur e alcohol) social PHQ-2 Answer Date Recorded PHQ-2 Score 0 02/15/2020 [place] Depression Scale Answer Date Recorded [place] Depression Score 0 01/05/2020 Last EPDS Self [...] documented as of this encounter Care Teams Filtration Plant Operator Relationship Specialty Start Date End Date Monica Farnsworth APRN CLAY HOISTER PCP - General Nurse Practitioner - Family 05/18/18 01/03/23 No Ref-Primary, Physician PCP - General 01/04/23 07/05/23 Maxine Greene PA-C [address] [place] [phone] PCP - General Family Medicine 07/06/23 Monica Farnsworth APRN CLAY HOISTER [address] [place] [address] Assigned PCP 05/19/17 10/17/21 John Brown MD [address] [facility] [address] [place] [address] Assigned OBGYN Provider 07/25/20 08/22/21 [place] [address] [place] [address] Assigned PCP 01/31/22 04/16/22 Ale Nuñ[place] [address] [place] [address] Assigned PCP 04/17/22 02/25/23 Shant Bae MD [address]341 [place] [address] Otolaryngology 11/29/22 Shant Bae MD [address]341 [place] [address] Assigned Surgical Provider 01/08/23 07/24/24 [place] [address] [place] [address] Assigned PCP 02/26/23 07/08/23 Maxine Greene PA-C [address] [place] [address] Assigned PCP 07/09/23 01/22/25 Margarita Reyes APRN [facility] [address] [place] [address] Assigned PCP 01/23/25 documented as of this encounter
--- OUTSIDE RECORDS SUMMARY | 2025-02-17 19:40 | XMS_ITS | Encounter Summary ---
Author Organization [facility] Address [address] [place] [id number] Care Team Providers Care Oncology Coordinator Name Role Phone No Ref-Primary, Physician Primary Care Provider [facility] Primary Care Provide r Monica Farnsworth RENTAL AGENT ASSEMBLER FINAL Primary Care Provider + Monica Farnsworth RENTAL AGENT ASSEMBLER FINAL Unavailable [phone] Monica Farnsworth RENTAL AGENT ASSEMBLER FINAL Unavailable [phone] John Brown MD Unavailable [phone] Iron Doyle MD Unavailable [phone] Ale Nuñez MD Unavailable + Shant Bae MD Unavailable No Ref-Primary, Physician Primary Care Provider Shant Bae MD Unavailable Iron Doyle MD Unavailable [phone] Maxine Greene PA-C Primary Care Provider [phone] Maxine Greene PA-C Unavailable [phone] Margarita Reyes APRN ASSEMBLER FINAL Unavailable Encounter Details Date Type Department Care Team (Late st Contact Info) Description 09/29/[address] [facility] [address] [place] [address] Alyx Thomas MD [address] [facility] [address] [place] [address] Social History Tobacco Use Types Packs/Day Years [...] Total Score: 4 09/13/20 17 10:16 AM RN DIGESTIVE documented as of this encounter Care Teams Oncology Coordinator Relationship Specialty Start Date End Date No Ref-Primary, Physician PCP - General 08/01/17 03/04/[address] [facility] [employer] [place], [place] [id number] PCP - General 03/05/18 05/17/18 Monica Farnsworth APRN ASSEMBLER FIN[employer] [place] [address] PCP - General Nurse Practitioner - Family 05/18/18 01/03/23 Monica Farnsworth APRN ASSEMBLER FINAL [address] [place] [address] PCP - Assigned PCP 05/19/17 12/05/18 No Ref-Primary, Physician PCP - General 01/04/23 07/05/23 Maxine Greene PA-C [address] [place] [address] PCP - General Family Medicine 07/06/23 Monica Farnsworth APRN ASSEMBLER FINAL [address] [place] [address] Assigned PCP 05/19/17 10/17/21 John Brown MD [address] [facility] [address] [place] [address] Assigned OBGYN Provider 07/25/20 08/22/21 [place] [address] [facility] [place] [address] Assigned PCP 01/31/22 04/16/22 Ale Nuñ[place] [address] [facility] [place] [address] Assigned PCP 04/17/22 02/25/23 Shant Bae MD [address] [place] [address] Otolaryngology 11/29/22 Shant Bae MD [address] [place] [address] Assigned Surgical Provider 01/08/23 07/24/24 [place] [address] [place] [address] Assigned PCP 02/26/23 07/08/23 Maxine Greene PA-C [address] [place] [address] Assigned PCP 07/09/23 01/22/25 Margarita Reyes APRN [facility] [address] [place] [address] Assigned PCP 01/23/25 documented as of this encounter
--- OUTSIDE RECORDS SUMMARY | 2025-02-17 19:40 | XMS_ITS | Clinical Summary ---
Author Organization [facility] Address [address] [place] [address] Care Team Providers Care Court Collections Officer Name Role Phone Shant Bae MD Unavailable [phone] Maxine Greene PAJeremiah Primary Care Provider [phone] Margarita Reyes APRN CHRONOMETER ASSEMBLER Unavailable Allergies Active Allergy Reactions Criticality Noted Date Comments Bee Venom Anaphylaxis High 02/17/2017 Medications traZODone (DESYREL) 50 MG tabletIndications:I nsomnia, unspecified type Take 1-2 tablets (50-100 mg) by mouth at bedtime. 60 tablet 1 4 Active levothyroxine (SYNTHROID/LEVOTHRO ID) 25 MCG tabletIndications:A cquired hypothyroidism Take 1 tablet (25 mcg) by mouth daily. 90 tablet 3 4 Active Active Problems Patient Care Coordination No te Formatting of this note is d ifferent from the original. 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 Blood type: O pos GBS: DEMOGRAPHICS: Patient contact info: [facility] [address] [place] [phone] (home) Telephone Information: Partner's name: REFERRING PROVIDER: 1) Primary OB Provider: Name: John Brown Ph: Fax: MATERNAL CARE TEAM: Patient Care Team Relationship Specialty Notifications Start End Monica Farnsworth APRN CNP PCP - General Nurse Practitioner - Family 05/18/18 [facility] [address] Monica Farnsworth APRN CHRONOMETER ASSEMBLER Assigned PCP 05/19/17 [facility] [address] CARE PLAN: 1) OB visits: q week [...] 7:30 4) Notifications in labor - NICU DIRECTOR SOCIAL SERVICE ONC 5) Specimen collection in labor / at delivery - Last updated: December 14, 2019 by Aimee Leyva RN Problem Noted Date Diagnosed Date Other headache syndrome 01/25/2022 Assessment & Plan (01/25/2022 9:14 AM CDT): Frontal [place]EN[place] 6 d, treated with antihistamines and Nyquil. No cough, fever, coryza, other Sx. Children ill 2 weeks ago. Discussed. Bacterial cause unlikely, viral infection possible. Treat as URI. Eczema 02/17/2017 Allergic to bees 08/25/2016 Obsessive-compulsive disorder 09/29/2015 Acquired hypothyroidism 01/16/2010 Keloid scar 02/16/2008 Lactose intolerance 10/13/2006 Heart murmur 10/13/2006 Overview (02/17/2017): Overview: Echo: before 1998; pt can feel it; like a pause, then a skip .(about once/wk) momentary shortness of breath, no syncope or chest pain Irritable bowel syndrome 10/11/2006 Overview (02/17/2017): Overview: 09/12 C'scope /c bx WNL; endomysial [...] Dysplasia of cervix, low grade (CECIL 1) Overview (09/05/2024): Hx of LSIL/CECIL 1 in 2009 NIL 2010 NIL 2012 NIL 2014 NIL, Neg HPV 07/18/19 NIL, Neg HPV. Plan: Routine screening 08/28/24 NIL pap, neg HPV. Resolved Problems Problem Noted Date Diagnosed Date Resolved Date Coryza 01/25/2022 08/28/2024 Acute sinusitis with symptoms > 10 days 01/25/2022 08/28/2024 Assessment & Plan (01/25/2022 9:15 AM CDT): Bacterial infection unlikely. Rx Antibiotics to start at 10 d per current guidelines. Discussed pathophysiology S/P section 01/04/2020 024 Placenta accreta in third trimester 12/20/2019 01/22/2020 Overview (12/20/2019): Added automatically from request for surgery [id number] Complete placenta previa nos or without hemorrhage, unspecified trimester 09/21/20192019 Previous section 08/28/2019 Overview (08/28/2019): Added automatically from request for surgery [id number] Previous delivery, antepartum condition or complication 07/18/2019 01/22/2020 AMA (advanced maternal age) multigravida 35+ 9 01/22/2020 History of pre-eclampsia in prior , currently 07/18/2019 01/22/2020 Hypothyroidism affecting 07/18/2019 01/22/2020 resulting from in vitro fertilization 07/18/2019 01/22/2020 Status post 09/30/20172017 Advanced maternal age, primigravida 03/22/2017 11/11/2017 Need for Tdap vaccination 02/17/2017 Bilateral low back pain with out sciatica, unspecified chronicity 11/18/2016 02/02/2017 Reserved for concepts with i nsufficient information to code with codable children 03/01/2008 08/28/2024 Immunizations Immunization Administration Dates Next Due COVID-19 12+ (Pfizer) 07/14/2023 DT (PEDS <7y) 10/03/1999 HepB 04/19/2014,02/22/2014 Influenza (IIV3) PF 08/25/2016,06/12/2015,2008 Influenza (prior to 2023) 08/25/2016 Influenza Vaccine >6 months,quad, PF 01/2023,07/26/2021,07/14/2020,2018,07/26/2018,06/17/2017 Influenza, Split Virus, Triv alent, Pf (Fluzone\Fluarix) 07/24/2024 Influenza,INJ,MDCK,PF,Quad >6mo(Flucelvax) 08/03/2022 MMR (MMRII) 02/22/2014 Rabies Vaccine 07/21/2005,06/30/2005,06/23/2005 TD,PF 7+ (Tenivac) 10/03/1999 TDAP Vaccine (Adacel) 11/26/2019,08/01/2017 Td (Adult), Adsorbed 10/03/1999 Tdap (Adult) Unspecified Formulation 10/03/1999 Varicella (Varivax) 12/20/2018,04/19/2014,2013 Family History Medical History Relation Comments Colon Cancer Father Prostate Cancer Father Hypertension Maternal Grandmother GERD Mother Hyperlipidemia Mother [...] Isolation Panel [NHANES] A nswer Date Recorded Frequency of Communication with Friends and Fami ly Not on file 08/28/2024 How often do you get together with friends or re latives? Once a week 08/28/2024 Attends Nondenominational Services Not on file 08/28 Active Member of Clubs or Organizations Not on f ile 08/28/2024 Attends Club or Organization Meetings Not on eyal e 08/28/2024 Marital Status Not on file 08/28/2024 AUDIT-C Answer Date Recorded Q1: How often do you have a drink containing alc ohol? 2-4 times a month 07/06/2023 Q2: How many drinks containi ng alcohol do you have on a typical day when you are drinking? 1 or 2 07/06/2023 Frequency of Binge Drinking Not on file 01/2023 PHQ-2 Answer Date Recorded PHQ-2 Score 0 08/28/2024 [employer] - Occupational Stress Questionnaire Answer Date Recorded Do you feel stress - tense, restless, nervous, or anxious, or unable to sleep at night because your mind is troubled all the time - these days? Only a little 08/28/2024 Exercise Vital Sign Answer Date Recorde d On average, how many days pe r week do you engage in moderate to strenuous exercise (like a brisk walk)? 3 days 08/28/2024 On average, how many minutes do you engage in exercise at this level? 60 min 08/28/2024 Mccaulley Depression Scale Answer Date Recorded Mccaulley Depression Score 0 01/05/2020 Last EPDS Self Harm Result Not on file 01/04 Adolescent Education Answer Date Record ed Getting School Help Needed Not on file 06/24 Food Insecurity Answer Date Recorded Within the past 12 months, d id you worry that your food would run out before you got money to buy more? No 08/28/2024 Within the past 12 months, d id the food you bought just not last and you didn t have money to get more? No 08/28/2024 Housing Stability Answer Date Recorded Do you have housing? (Diane sol is defined as stable permanent housing and does not include staying outside in a car, in a tent, in an abandoned building, in an overnight longterm, or couch-surfing.) Yes 08/28/2024 Are you worried about losing your housing? No 08/28/2024 Financial Resource Strain Answer Date R ecorded Within the past 12 months, h ave you or your family members you live with been unable to get utilities (heat, electricity) when it was really needed? No 08/28/2024 Transportation Needs Answer Date Record ed Within the past 12 months, h as lack of transportation kept you from medical appointments, getting your medicines, non-medical meetings or appointments, work, or from getting things that you need? No 08/28/2024 Interpersonal Safety Answer Date Record ed Do [...] file Not on file Not on file Last Filed Vital Signs Vital Sign Reading Time Taken Comments Blood Pressure 122/79 08/28/2024 1:20 PM PHOTOVOLTAIC INSTALLATION TECHNICIAN Pulse 81 08/28/2024 1:20 PM PHOTOVOLTAIC INSTALLATION TECHNICIAN Temperature 37 C (98.6 F) 08/28/2024 1:20 PM PHOTOVOLTAIC INSTALLATION TECHNICIAN Respiratory Rate 14 07/24/2024 11:35 AM CDT Oxygen Saturation 97% 08/28/2024 1:20 PM PHOTOVOLTAIC INSTALLATION TECHNICIAN Inhaled Oxygen Concentration - - Weight 81.2 kg (179 lb) 08/28/2024 1:20 PM PHOTOVOLTAIC INSTALLATION TECHNICIAN Height 162.6 cm (5' 4) 08/28/2024 1:20 PM PHOTOVOLTAIC INSTALLATION TECHNICIAN Body Mass Index 30.73 08/28/2024 1:20 PM PHOTOVOLTAIC INSTALLATION TECHNICIAN Plan of Treatment Health Maintenance Due Date Last Done Comments CT COLONOGRAPHY 1975 FIT 1975 FLEX SIG 1975 sDNA (Cologuard) 1975 HEPATITIS B IMMUNIZATION (3 of 3 - 19+ 3-dose series) 08/25/2014 04/19/2014, 02/22/2014 COVID-19 Vaccine ( season) 2024 07/14/2023, 07/12/2022, 08/29/2021, Additional history exists PHQ-2 (once per calendar year) 2024 08/28/2024, 11/29/2022, 04/06/2022, Additional history exists ANNUAL REVIEW OF HM ORDERS 08/28/202508/28, 07/06/2023, 01/25/2022, Additional history exists TSH W/FREE T4 REFLEX 08/28/2025 08/28/2024, 07/14/2023, 04/06/2022, Additional history exists YEARLY PREVENTIVE VISIT 08/28/2025 08/28/20 24, 07/06/2023, 04/06/2022, Additional history exists MAMMO SCREENING 08/28/2026 08/28/2024, 05/2023, 01/05/2022 ZOSTER IMMUNIZATION (1 of 2) 2027 DIABETES SCREENING 08/28/2027 08/28/2024, 1 , 04/06/2022, Additional history exists LIPID 07/14/2028 07/14/2023, 04/06/2022 ADVANCE CARE PLANNING 08/28/2029 08/28/2024, 022 HPV TEST 08/28/2029 08/28/2024, 07/03, 04/19/2014 PAP 08/28/2029 08/28/2024, 08/04, 07/18/2019, Additional history exists DTAP/TDAP/TD IMMUNIZATION (4 - Td or Tdap) 11/26/2029 11/26/2019, 08/01/2017, 10/03/1999, Additional history exists COLONOSCOPY 04/18/2034 04/18/2024, 04/18/2024 COLORECTAL CANCER SCREENING 04/18/2034 HEPATITIS C SCREENING Completed 11/29/2016, 015 HIV SCREENING Completed 07/06/2019, 02/17/2017 INFLUENZA VACCINE Completed 07/24/2024, , 08/03/2022, Additional history exists HPV IMMUNIZATION Aged Out No longer e ligible based on patient's age to complete this topic MENINGITIS IMMUNIZATION Aged Out No l onger eligible based on patient's age to complete this topic Pneumococcal Vaccine: Pediatrics (0 to 5 Years) and At-Risk Patients (6 to 49 Years) Discontinued Procedures Procedure Name Priority Date/Time Associated Diagnosis Comments MA SCREENING BILATERAL W/ GARRET Routine 08/28/2024 2:43 PM PHOTOVOLTAIC INSTALLATION TECHNICIAN Encounter for screening mammogram for malignant neoplasm of breast HEMOGLOBIN A1C Routine 08/28/2024 2:32 PM PHOTOVOLTAIC INSTALLATION TECHNICIAN Screening for diabetes mellitus TSH WITH FREE T4 REFLEX Routine 08/28/2024 2:32 PM PHOTOVOLTAIC INSTALLATION TECHNICIAN Acquired hypothyroidism HPV AND GYNECOLOGIC CYTOLOGY PANEL Routine 08/28/2024 2:23 PM PHOTOVOLTAIC INSTALLATION TECHNICIAN Pap smear for cervical cancer screening COLONOSCOPY Routine 04/18/2024 10:49 AM CDT LIPID REFLEX TO DIRECT LDL PANEL Routine 07/14/2023 10:29 AM CDT Routine general medical examination at a health care facility Screening for lipid disorders HIV ANTIGEN ANTIBODY COMBO Routine 07/06/2019 10:22 AM CDT care, subsequent , unspecified trimester HEPATITIS C (HIM EXTERNAL RESULT) Routine 11/29/2016 from Last 3 Months or Most Recently Relevant to Health Maintenance Results * MA Screen Bilateral w/Garret (08/28/2024 2:43 PM PHOTOVOLTAIC INSTALLATION TECHNICIAN) Anatomical Region Laterality Modality Breast Bilateral Mammography Impressions 08/29/2024 1:30 PM PHOTOVOLTAIC INSTALLATION TECHNICIAN IMPRESSION: ACR BI-RADS Category 1: Negative BREAST CANCER SCREENING RECOMMENDATION: Routine yearly mammography beginning at age 40 or as discussed with your provider. The results and recommendations of this examination will be communicated to the patient. Sean Arora MD Narrative 08/29/2024 1:30 PM PHOTOVOLTAIC INSTALLATION TECHNICIAN BILATERAL FULL FIELD DIGITAL SCREENING MAMMOGRAM WITH TOMOSYNTHESIS Performed on: 08/28/24 Compared to: 06/10/2023 and 01/05/2022 Technique: This study was evaluated with the assistance of Computer-Aided Detection. Breast Tomosynthesis was used in interpretation. Findings: The breasts are almost entirely fatty. There is no radiographic evidence of malignancy. Margarita Reyes APRN, CNP IMG MAMMOGRAPHY O RDERABLES Final Result * TSH WITH FREE T4 REFLEX (08/28/2024 2:32 PM PHOTOVOLTAIC INSTALLATION TECHNICIAN) TSH 2.07 0.30 - 4.20 uIU/mL 08/28/2024 9:51 PM PHOTOVOLTAIC INSTALLATION TECHNICIAN [facility] Blood BLOOD SPECIMEN / Unknown Venipuncture / Unknown 08/28/2024 2:32 PM PHOTOVOLTAIC INSTALLATION TECHNICIAN 08/28/2024 2:34 PM PHOTOVOLTAIC INSTALLATION TECHNICIAN Margarita Reyes APRN, CNP LAB - BLOOD ORDER TOMAS Final Result [facility] [address] [facility], [address] [place] [id number] * Hemoglobin A1c (08/28/2024 2:32 PM PHOTOVOLTAIC INSTALLATION TECHNICIAN) Estimated Average Glucose 111 <117 mg/dL 08/28/2024 2:39 PM PHOTOVOLTAIC INSTALLATION TECHNICIAN [facility] Hemoglobin A1C 5.5 0.0 - 5.6 % 08/28/2024 2:39 PM PHOTOVOLTAIC INSTALLATION TECHNICIAN [facility] Comment: Normal <5.7% Prediabetes 5.7-6.4% Diabetes 6.5% or higher Note: Adopted from ADA consensus guidelines. Blood BLOOD SPECIMEN / Unknown Venipuncture / Unknown 08/28/2024 2:32 PM PHOTOVOLTAIC INSTALLATION TECHNICIAN 08/28/2024 2:34 PM PHOTOVOLTAIC INSTALLATION TECHNICIAN us Margarita Reyes APRN, CNP LAB - BLOOD ORDER TOMAS Final Result LABORATORY [facility] [address] [facility] Lab (no room number, 1st floor of clinic) [place] [address], [facility] * HPV and Gynecologic Cytology Panel - Recommended Age 30 - 65 Years (08/28/2024 2:23 PM PHOTOVOLTAIC INSTALLATION TECHNICIAN) Human Papilloma Virus 16 DNA Negative Negative 08/29/2024 6:02 PM PHOTOVOLTAIC INSTALLATION TECHNICIAN [facility] Human Papilloma Virus 18 DNA Negative Negative 08/29/2024 6:02 PM PHOTOVOLTAIC INSTALLATION TECHNICIAN [facility] Human Papilloma Virus Other Negative Negative 08/29/2024 6:02 PM PHOTOVOLTAIC INSTALLATION TECHNICIAN [facility] FINAL DIAGNOSIS This patient's sample is negative for high risk HPV DNA. METHODOLOGY: The [employer] system uses automated extraction, simultaneous amplification of HPV (E6/E7 oncogenes) and beta-globin, followed by real time detection of fluorescent labeled HPV and beta globin using specific oligonucleotide probes. The test specifically identifies types HPV 16 DNA and HPV 18 DNA while concurrently detecting the rest of the high risk types (31, 33, 35, 39, 45, 51, 52, 56, 58, 59, 66 or 68). COMMENTS: This test is not intended for use as a screening device for woman under age 30 with normal cervical cytology. Results should be correlated with cytologic and histologic findings. Close clinical follow up is recommended. Please see the separate Gynecologic Cytology (Pap) report from the same collection date. 08/29/2024 6:02 PM PHOTOVOLTAIC INSTALLATION TECHNICIAN MOLE[facility] DIAGNOSTICS Brushing ENDOCERVICAL STRUCTURE / Unknown Non-blood Collection / Unknown 08/28/2024 2:23 PM PHOTOVOLTAIC INSTALLATION TECHNICIAN 08/28/2024 2:39 PM PHOTOVOLTAIC INSTALLATION TECHNICIAN us Margarita Reyes APRN, CNP LAB - BLOOD ORDER TOMAS Final Result [facility] [address] [facility] [address], [address] [place] [address], [facility] MOLECULAR DIAGNOSTICS [facility] [address], [address] [place] [address] * COLONOSCOPY (04/18/2024 10:49 AM CDT) COLONOSCOPY [facility] Patient Name: Nila Ortiz Procedure Date: 04/18/2024 10:49 AM Date of : 1975 Admit Type: Outpatient Age: 49 Gender: Female Attending MD: SIMÓN MAYO MD, Total Sedation Time: 19_minutes continuous bedside 1:1 Instrument Name: [id number] Adult Colonoscope Procedure: Colonoscopy Indications: Screening for colorectal malignant neoplasm Providers: SIMÓN MAYO MD (Doctor) Referring MD: GRADY DELEON (Referring MD) Medicines: Midazolam 5 mg IV, Fentanyl 250 micrograms IV Complications: No immediate complications. Procedure: Pre-Anesthesia Assessment: - Prior to the procedure, a History and Physical was performed, and patient medications and allergies were reviewed. The patient is competent. The risks and benefits of the procedure and the sedation options and risks were discussed with the patient. All questions were answered and informed consent was obtained. Patient identification and proposed procedure were verified by the physician in the procedure room. Mental Status Examination: alert and oriented. Airway Examination: normal oropharyngeal airway and neck mobility. Respiratory Examination: clear to auscultation. CV Examination: normal. Prophylactic Antibiotics: The patient does not require prophylactic antibiotics. Prior Anticoagulants: The patient has taken no anticoagulant or antiplatelet agents. ASA Grade Assessment: II - A patient with mild systemic disease. After reviewing the risks and benefits, the patient was deemed in satisfactory condition to undergo the procedure. The anesthesia plan was to use moderate sedation / analgesia (conscious sedation). Immediately prior to administration of medications, the patient was re-assessed for adequacy to receive sedatives. The heart rate, respiratory rate, oxygen saturations, blood pressure, adequacy of pulmonary ventilation, and response to care were monitored throughout the procedure. The physical status of the patient was re-assessed after the procedure. After obtaining informed consent, the colonoscope was passed under direct vision. Throughout the procedure, the patient's blood pressure, pulse, and oxygen saturations were monitored continuously. The Olympus Adult Colonovideoscope, Model# [id number], Censitrac# [id number], SN# [id number] was introduced through the anus and advanced to the terminal ileum, with identification of the appendiceal orifice and IC valve. The colonoscopy was performed without difficulty. The patient tolerated the procedure. The quality of the bowel preparation was good. The terminal ileum, ileocecal valve, appendiceal orifice, and rectum were photographed. Findings: The perianal and digital rectal examinations were normal. The terminal ileum appeared normal. The entire examined colon appeared normal on direct and retroflexion views. Impression: - The examined portion of the ileum was normal. - The entire examined colon is normal on direct and retroflexion views. - No specimens collected. Recommendation: - Use sugar-free Metamucil one teaspoon PO BID PRN. - Repeat colonoscopy in 10 years for screening purposes. Procedure Code(s): --- Professional --- G0121, Colorectal cancer screening; colonoscopy on individual not meeting criteria for high risk Diagnosis Code(s): --- Professional --- Z12.11, Encounter for screening for malignant neoplasm of colon CPT copyright 2021 [employer]. All rights reserved. The codes documented in this report are preliminary and upon repairer kiln car review may be revised to meet current compliance requirements. Electronically signed by Simón Mayo MD __ SIMÓN MAYO MD 04/18/2024 11:23:32 AM I was physically present for the entire viewing portion of the exam. SIMÓN MAYO MD Number of Addenda: 0 Note Initiated On: 04/18/2024 10:49 AM Procedure Date: 04/18/2024 10:49:08 AM Scope Withdrawal Time: 0 hours 7 minutes 9 seconds Total Procedure Duration: 0 hours 18 minutes 15 seconds Estimated Blood Loss: Scope In: 10:58:35 AM Scope Out: 11:16:50 AM RADIOLOGY RESULTS 04/18/2024 10:4 9 AM CDT Maxine Greene PA-C PROCEDURES Final Result RADIOLOGY RESULTS * (ABNORMAL) Lipid panel reflex to direct [...] - 07/14/2023 7:53 PM CDT Cholesterol Desirable: <200 mg/dL Triglycerides Normal: Less than 150 mg/dL Borderline High: 150-199 mg/dL High: 200-499 mg/dL Very High: Greater than or equal to 500 mg/dL Direct Measure HDL Female: Greater than or equal to 50 mg/dL Male: Greater than or equal to 40 mg/dL LDL Cholesterol Desirable: <100mg/dL Above Desirable: 100-129 mg/dL Borderline High: 130-159 mg/dL High: 160-189 mg/dL Very High: >= 190 mg/dL Non HDL Cholesterol Desirable: 130 mg/dL Above Desirable: 130-159 mg/dL Borderline High: 160-189 mg/dL High: 190-219 mg/dL Very High: Greater than or equal to 220 mg/dL us Maxine Greene PA-C LAB - BLOOD ORDERABLES Final R esult LABORATORY [facility] [address] [facility], [address] [address], [facility] [phone] * HIV Antigen Antibody Combo (07/06/2019 10:22 AM CDT) HIV Antigen Antibody Combo Nonreactive NR^Nonrea ctive 07/06/2019 8:19 PM CDT [facility] Comment:HIV-1 p24 Ag & HIV-1 /HIV-2 Ab Not Detected Blood specimen (specimen) 07/06/2019 10:22 AM CDT 07/06/2019 10:27 AM CDT us John Brown MD LAB - BLOOD ORDERABLES Final R esult [facility] [address] [place] [address] * Hep C - HIM (11/29/2016) Hep C HIM See Scanned Document EXTERNAL LAB Comment:Non-Reactive 11/29/2016 Narrative EXTERNAL LAB - 11/29/2016 [facility] VISIT NOTES/RESULTS FOR -02/15/-02/21/[address] [place] [address] us Provider Outside LAB - HIM EXTERNAL RESULT Final Result EXTERNAL LAB External Lab from Last 3 Months or Most Recently Relevant to Health Maintenance Insurance [facility] Care Teams Court Collections Officer Relationship Specialty Start Date End Date Maxine Greene PA-C [address] [place] [phone] PCP - General Family Medicine 07/06/23 Shant Bae MD [address] [facility] [address] Otolaryngology 11/29/22 Margarita Reyes APRN CHRONOMETER ASSEMBLER [address] [place] [address] Assigned PCP 01/23/25
--- OUTSIDE RECORDS SUMMARY | 2025-02-17 19:40 | XMS_ITS | Encounter Summary ---
Author Organization [place] Address [address] [place] [address] Care Team Providers Care Sisal Picker Name Role Phone No Ref-Primary, Physician Primary Care Provider [facility] Primary Care Provide r Monica Farnsworth TELEVISION PARTS TESTER PREFITTER DOORS Primary Care Provider + Monica Farnsworth TELEVISION PARTS TESTER PREFITTER DOORS Unavailable [phone] Monica Farnsworth TELEVISION PARTS TESTER PREFITTER DOORS Unavailable [phone] John Brown MD Unavailable [phone] Iron Doyle MD Unavailable [phone] Ale Nuñez MD Unavailable + Shant Bae MD Unavailable No Ref-Primary, Physician Primary Care Provider Shant Bae MD Unavailable Iron Doyle MD Unavailable [phone] Maxine Greene PA-C Primary Care Provider Maxine Greene PA-C Unavailable [phone] Margarita Reyes APRN PREFITTER DOORS Unavailable Encounter Details Date Type Department Care Team (Latest Contact Info) Description 09/13/2017 MyC Medical Advice [facility] [address] [place] [address] Alyx Thomas MD [address] [facility] [address] [place] [address] Other specified hypothyroidism (Primary Dx) Social History [...] Total Score: 4 09/13/20 17 10:16 AM CULL GRADER documented as of this encounter Care Teams Sisal Picker Relationship Specialty Start Date End Date No Ref-Primary, Physician PCP - General 08/01/17 03/04/18 [facility] [address] [place], [place] [id number] PCP - General 03/05/18 05/17/18 Monica Farnsworth [place] [address] PCP - General Nurse Practitioner - Family 05/18/18 01/03/23 Monica Farnsworth APRN PREFITTER DOORS [address] [place] [address] PCP - Assigned PCP 05/19/17 12/05/18 No Ref-Primary, Physician PCP - General 01/04/23 07/05/23 Maxine Greene PANereydaC [address] [facility] [place] [address] PCP - General Family Medicine 07/06/23 Monica Farnsworth APRN PREFITTER DOORS [address] [place] [address] Assigned PCP 05/19/17 10/17/21 John Brown MD [address] [address] Assigned OBGYN Provider 07/25/20 08/22/21 [place] [address] [place] [address] Assigned PCP 01/31/22 04/16/22 Ale Nuñez [place] [address] [place] [address] Assigned PCP 04/17/22 02/25/23 Shant Bae MD [address] [place] [address] Otolaryngology 11/29/22 Shant Bae MD [address] [place] [address] Assigned Surgical Provider 01/08/23 07/24/24 [place] [address] [facility] [place] [place] [address] Assigned PCP 02/26/23 07/08/23 Maxine Greene PA-C [address] [place] [address] Assigned PCP 07/09/23 01/22/25 Margarita Reyes APRN PREFITTER DOORS [address] [place], [place] [id number] Assigned PCP 01/23/25 documented as of this encounter
--- OUTSIDE RECORDS SUMMARY | 2025-02-17 19:40 | XMS_ITS | Encounter Summary ---
Author Organization [place] Address [address] [place] [address] Care Team Providers Care Beauty Parlor Cleaner Name Role Phone No Ref-Primary, Physician Primary Care Provider [facility] Primary Care Provide r Monica Farnsworth HOME HELP AIDE LITHOPONE MILL WORKER Primary Care Provider + Monica Farnsworth HOME HELP AIDE LITHOPONE MILL WORKER Unavailable [phone] Monica Farnsworth HOME HELP AIDE LITHOPONE MILL WORKER Unavailable [phone] John Brown MD Unavailable [phone] Iron Doyle MD Unavailable [phone] Ale Nuñez MD Unavailable + Shant Bae MD Unavailable [phone] No Ref-Primary, Physician Primary Care Provider Shant Bae MD Unavailable Iron Doyle MD Unavailable [phone] Maxine Greene PA-C Primary Care Provider [phone] Maxine Greene PA-C Unavailable [phone] Margarita Reyes APRN LITHOPONE MILL WORKER Unavailable Encounter Details Date Type Department Care Team (Late st Contact Info) Description 06/21/2017 MyC Medical Advice [facility] [address] [place] [address] Alyx Thomas MD [address] [facility] [address] [place] [address] Social History Tobacco Use Types Packs/Day Years [...] on filedocumented in this encounter Care Teams Beauty Parlor Cleaner Relationship Specialty Start Date End Date No Ref-Primary, Physician PCP - General 08/01/17 03/04/18 [facility] CARDIAC [place] [address] PCP - General 03/05/18 05/17/18 Monica Farnsworth APRN [place] [address] PCP - General Nurse Practitioner - Family 05/18/18 01/03/23 Monica Farnsworth APRN LITHOPONE MILL WORKER [address] [place] [address] PCP - Assigned PCP 05/19/17 12/05/18 No Ref-Primary, Physician PCP - General 01/04/23 07/05/23 Maxine Greene PA-C [address] [place] [phone] PCP - General Family Medicine 07/06/23 Javad Monica HOME HELP AIDE LITHOPONE MILL WORKER [address] [place] [address] Assigned PCP 05/19/17 10/17/21 John Brown MD [address] [facility] [address] [place], [place] [address] Assigned OBGYN Provider 07/25/20 08/22/21 [place] [address] [place], [place] [address] Assigned PCP 01/31/22 04/16/22 Ale Nuñ[place] [address] [place] [address] Assigned PCP 04/17/22 02/25/23 Shant Bae MD [address] [place], [place] [address] Otolaryngology 11/29/22 Shant Bae MD [address] [place] [address] Assigned Surgical Provider 01/08/23 07/24/24 [place] [address] [place], [place] [address] Assigned PCP 02/26/23 07/08/23 Maxine Greene PA-C [address] [place] [address] Assigned PCP 07/09/23 01/22/25 Margarita Reyes APRN LITHOPONE MILL WORKER [address] [place] [address] Assigned PCP 01/23/25 documented as of this encounter
--- OUTSIDE RECORDS SUMMARY | 2025-02-17 19:40 | XMS_ITS | Encounter Summary ---
Author Organization [place] Address [address] [place] [address] Care Team Providers Care Asphalt Distributor Operator Name Role Phone Javad Monica WILDER RETURN TO FACTORY CLERK Primary Care Provider + Ale Nuñez MD Unavailable + Shant Bae MD Unavailable No Ref-Primary, Physician Primary Care Provider Shant Bae MD Unavailable Iron Doyle MD Unavailable [phone] Maxine Greene PA-C Primary Care Provider Maxine Greene PA-C Unavailable [phone] Margarita Reyes APRN RETURN TO FACTORY CLERK Unavailable Reason for Visit * Reason Onset Date Comments MyChart Communication 06/14/2022 update Encounter Details Date Type Department Care Team (Latest Contact Info) Description 06/14/2022 MyC Medical Advice [address] [address] Ale Nuñez MD ARISE [address] [address] MyChart Communication (update) Social History Tobacco Use [...] week 04/06/2022 How often do you attend [facility] or buddhist services? 1 to 4 times per year 04/06/2022 Do you belong to any clubs o r organizations such as anabaptist groups, unions, fraternal or athletic groups, or [...] Recorded PHQ-2 Score 0 04/06/2022 [facility] - Occupational [...] place to sleep or slept in a assisted (including now)? No 04/06/2022 Jerome Depression Scale Answer Date Recorded Jerome Depression Score 0 01/05/2020 Last EPDS Self [...] - 06/14/2022 4:40 PM CDT NWD, see [employer] response, ok to close? Belgica Amato RN, BSN [facility] * Telephone Encounter - Guero Mcnamara RN - 06/14/2022 11:32 AM CDT Please see [employer] message in reference to refill request encounter. Routed to Ale Nuñez MD, Please review and advise Joshua BROWN. (see mychart encounter advice in reference to refill request) Thank you, Guero Mcnamara, RN documented in this encounter Plan of Treatment Not on file documented as of this encounter Visit Diagnoses Not on filedocumented in this encounter Additional Health Concerns Assessment Noted Time PHQ-9 Depression Total Score: 1 02/15/20 20 3:07 PM CDT documented as of this encounter Care Teams Asphalt Distributor Operator Relationship Specialty Start Date End Date Monica Farnsworth APRN RETURN TO FACTORY CLERK PCP - General Nurse Practitioner - Family 05/18/18 01/03/23 No Ref-Primary, Physician PCP - General 01/04/23 07/05/23 Maxine Greene PA-C [address] [place] [address] PCP - General Family Medicine 07/06/23 Ale Nuñez MD Assigned PCP 04/17/22 02/25/23 Shant Bae MD [address] [place] [address] Otolaryngology 11/29/22 Shant Bae MD [address] [place] [address] Assigned Surgical Provider 01/08/23 07/24/24 [place] [address] [place] [address] Assigned PCP 02/26/23 07/08/23 Maxine Greene PA-C [address] [place] [address] Assigned PCP 07/09/23 01/22/25 Margarita Reyes APRN [facility] [address] [place] [address] Assigned PCP 01/23/25 documented as of this encounter
--- OUTSIDE RECORDS SUMMARY | 2025-02-17 19:40 | XMS_ITS | Encounter Summary ---
Author Organization [place] Address [address] [place] [address] Care Team Providers Care Perianesthesia Manager Name Role Phone Monica Farnsworth APRN UNDERWATER ROBOTICIST Primary Care Provider + Monica Farnsworth APRN UNDERWATER ROBOTICIST Unavailable John Brown MD Unavailable [phone] Iron Doyle MD Unavailable [phone] Ale Nuñez MD Unavailable + Shant Bae MD Unavailable No Ref-Primary, Physician Primary Care Provider Shant Bae MD Unavailable Iron Doyle MD Unavailable [phone] Maxine Greene PA-C Primary Care Provider [phone] Maxine Greene PA-C Unavailable [phone] Margarita Reyes APRN UNDERWATER ROBOTICIST Unavailable Encounter Details Date Type Department Care Team (Late st Contact Info) Description 10/16/2020 [facility] [place] [address] [place] [address] Elizabeth Prasad RN Social History Tobacco Use Types Packs/Day Years Used Date Smoking Tobacco: Never Smokeless Tobacco: Never Alcohol Use Standard Drinks/Week Comments Not Currently 0 (1 standard drink = 0.6 oz pur e alcohol) social PHQ-2 Answer Date Recorded PHQ-2 Score 0 02/15/2020 Callahan Depression Scale Answer Date Recorded Callahan Depression Score 0 01/05/2020 Last EPDS Self [...] COVID-19? No / Unsure 10/15/2020 12:17 PM THERAPIST ASST documented as of this encounter Plan of Treatment Not on file documented as of this encounter Visit Diagnoses Not on filedocumented in this encounter Additional Health Concerns Assessment Noted Time PHQ-9 Depression Total Score: 1 02/15/20 20 3:07 PM CDT documented as of this encounter Care Teams Perianesthesia Manager Relationship Specialty Start Date End Date Monica Farnsworth APRN UNDERWATER ROBOTICIST PCP - General Nurse Practitioner - Family 05/18/18 01/03/23 No Ref-Primary, Physician PCP - General 01/04/23 07/05/23 Maxine Greene PA-C [address] [place] [id number] PCP - General Family Medicine 07/06/23 Monica Farnsworth APRN UNDERWATER ROBOTICIST [address] [place] [address] Assigned PCP 05/19/17 10/17/21 John Brown MD [address] [address] Assigned OBGYN Provider 07/25/20 08/22/21 [place] [address] [facility] [place] [address] Assigned PCP 01/31/22 04/16/22 Ale Nuñez [place] [address] [facility] [place] [address] Assigned PCP 04/17/22 02/25/23 Shant Bae MD [address] [place] [address] Otolaryngology 11/29/22 Shant Bae MD [address] [place] [address] Assigned Surgical Provider 01/08/23 07/24/24 [place] [address] [facility] [place] [address] Assigned PCP 02/26/23 07/08/23 Maxine Greene PA-C [address] [facility] [place] [address] Assigned PCP 07/09/23 01/22/25 Margarita Reyes APRN UNDERWATER ROBOTICIST [address] [facility] [address] Assigned PCP 01/23/25 documented as of this encounter
== END 2025-02-17 19:39 | disposition home or self-care (01) ==
LOC: ED 19:37
PROVIDERS: Emergency Provider Emergency Medicine
DX: S61.011A Laceration without foreign body of right thumb without damage to nail, initial encounter (principal); W26.0XXA Contact with knife, initial encounter; Y93.G1 Activity, food preparation and clean up
CPT/HCPCS: 12001; 99282; 99283; J0665

== ENCOUNTER 2025-03-07 10:38 | Outpatient (CLI) | payer BC, SELFPAY | END 2025-03-07 10:39 | disposition home or self-care (01) | LOC: FRMREF 10:39 | DX: R42 Dizziness and giddiness (principal); R53.83 Other fatigue; E03.9 Hypothyroidism, unspecified | CPT/HCPCS: 84443 ==

== ENCOUNTER 2025-03-19 10:44 | Outpatient (CLI) | payer BC, SELFPAY | END 2025-03-19 10:45 | disposition home or self-care (01) | PROVIDERS: Visit Provider Family Medicine | DX: E03.9 Hypothyroidism, unspecified (principal); R53.83 Other fatigue; Z13.6 Encounter for screening for cardiovascular disorders; Z11.59 Encounter for screening for other viral diseases | CPT/HCPCS: 80053; 80061; 86803 ==

== ENCOUNTER 2025-04-11 08:32 | Outpatient (CLI) | payer BC, SELFPAY ==
--- NOTE | 2025-04-11 09:00 | CRLHL7_ITS ---
For Patients: As a result of the Century Cures Act, medical imaging exams and procedure reports are released immediately into your electronic medical record. You may view this report before your referring provider. If you have questions, please contact your health care provider. Indication: Chronic sinusitis. Technique: Noncontrast axial CT of the paranasal sinuses with coronal reformats are provided. No comparisons. Findings: The visualized paranasal sinuses are clear. The ostiomeatal complexes are patent bilaterally. The visualized intraorbital contents appear within normal limits. Impression: Unremarkable CT of the paranasal sinuses. Please note that all CT scans at this facility use dose modulation, iterative reconstruction, and/or weight-based dosing when appropriate to reduce radiation dose to as low as reasonably achievable. Dictated by Darryn Ambrose MD @ 04/11/2025 3:18:02 PM (Electronically Signed)
== END 2025-04-11 08:33 | disposition home or self-care (01) ==
LOC: CT 08:33
PROVIDERS: PCP Family Medicine; Visit Provider Otolaryngology
DX: J32.9 Chronic sinusitis, unspecified (principal)
CPT/HCPCS: 70486

== ENCOUNTER 2025-05-24 07:30 | Outpatient (CLI) | payer BC, SELFPAY | END 2025-05-24 07:31 | disposition home or self-care (01) | LOC: NFLDREF 05-25 07:19 | PROVIDERS: PCP Family Medicine; Referring Provider Family Medicine; Visit Provider Family Medicine | DX: Z01.818 Encounter for other preprocedural examination (principal) | CPT/HCPCS: 80048 ==

== ENCOUNTER 2025-07-08 15:27 | Outpatient (CLI) | payer BC, SELFPAY | END 2025-07-08 15:28 | disposition home or self-care (01) | PROVIDERS: PCP Family Medicine; Visit Provider Family Medicine | DX: M79.10 Myalgia, unspecified site (principal) | CPT/HCPCS: 82550; 83516; 84182; 86038; 86039; 86140; 86235 ==